=== PATIENT | male | born 1940 | race Caucasian/White ===

== ENCOUNTER 2018-05-06 11:25 | Outpatient (CLI) | payer MEDICARE, SELFPAY ==
--- NOTE | 2018-05-06 11:14 | DI.RAD_ITS ---
SYMPTOM/DIAGNOSIS: PAIN LEFT KNEE: Two views. No priors. There is periarticular spurring involving all three joint compartments. The joint spaces are otherwise well maintained. The bones are intact and normally mineralized. Extensive vascular calcifications are present. IMPRESSION: Mild to moderate degenerative changes of the left knee. RIGHT KNEE: Two views. No priors. There is mild narrowing of the lateral femoral tibial joint space. There is dillon-articular spurring involving all three joint compartments. The bones appear intact. Extensive vascular calcifications are present. IMPRESSION: Moderate degenerative changes of the right knee.
== END 2018-05-06 11:45 ==
PROVIDERS: Visit Provider Orthopaedic Surgery
DX: M25.561 Pain in right knee (principal); M25.562 Pain in left knee; M17.11 Unilateral primary osteoarthritis, right knee; M17.12 Unilateral primary osteoarthritis, left knee; G56.03 Carpal tunnel syndrome, bilateral upper limbs
CPT/HCPCS: 20610; 99202; 99204; 73560; J1040

== ENCOUNTER 2018-05-20 09:29 | Outpatient (CLI) | payer MEDICARE, SELFPAY ==
--- NOTE | 2018-05-20 09:28 | W.PREOPHP ---
Date of service: 05/20/18 Assessment and Plan (1) Carpal tunnel syndrome of right wrist: Current visit: Yes Status: Chronic Right ECTR. Details of surgery were discussed with patient as well as risks and pertinent anatomy. All questions were answered. (2) Carpal tunnel syndrome of left wrist: Current visit: Yes Status: Chronic He plans on having a left ECTR following his right ECTR. He will be evaluated in clinic a couple of weeks after surgery, and his left ECTR will be scheduled at that time. History of Present Illness Chief Complaint: B/L hand pain and numbness Narrative: Soy today for preop visit of a right ECTR. He has been dealing with bilateral hand pain and numbness for almost 20 years now. He states that it started with his left hand, but when he had them looked that with the EMG studies, he was instructed that his right hand is worse. Since his right hand has been getting more significant trouble especially at night the numbness and burning sensation keeping him from sleeping. He also has increased numbness and tingling with holding a phone up to his ear, and driving. He has tried braces on both of his wrists, but they have not helped with his symptoms. In the clinic Dr. Blevins did mention that he noticed some thenar atrophy as well in both of his hands. He is anxious to proceed with both carpal tunnel releases, the first morning on the right side on Saturday. Pertinent Surgical Information Patient denies history of hypertension, CVA, AK, angina, asthma, COPD, renal or liver disorders, hepatitis, bleeding disorders, diabetes, immune or thyroid disorders. No complications from anesthesia. Review of Systems Constitutional Denies fever(s) ENT Denies dizziness and Denies sore throat Cardiovascular Denies chest pain, Denies palpitations and Denies dyspnea Respiratory Denies cough and Denies dyspnea Gastrointestinal Denies abdominal pain, Denies melena, Denies hematochezia, Denies diarrhea, Denies nausea and Denies vomiting Genitourinary Denies hematuria and Denies dysuria Neurologic Denies dizziness Endocrine Denies palpitations [facility] Medical History Macular degeneration of both eyes (Chronic) Surgical History H/O arthroscopy of left knee (Chronic) History of colostomy (Chronic) History of colostomy reversal (Chronic) Meds Home Medications Medication Instructions Recorded Confirmed Type byfyrntlpsi-bndhmllvs-wrz C-Mn 2 cap PO DAILY cap 05/06/18 05/06/18 History capsule timolol maleate 0.5 % once daily 1 drp OP BID 05/06/18 05/06/18 History eye drops vitamins A,C,Z-srnn-gtvasn 7,160 1 tab PO BID tab 05/06/18 05/06/18 History unit-113 mg-100 unit tablet Allergies Allergy/AdvReac Type Severity Reaction Status Date / Time Sulfa (Sulfonamide Allergy Contraindic Verified 05/06/18 10:48 Antibiotics) ated acetaminophen [From Percocet] AdvReac Contraindic Verified 05/06/18 10:48 ated oxycodone [From Percocet] AdvReac Contraindic Verified 05/06/18 10:48 ated Exam HENMT Head: normocephalic and atraumatic General nose exam: no nasal discharge Throat: uvula midline and no uvular edema Other: soft palate rises symmetrically, no erythema Eyes Conjunctivae: conjunctivae normal Sclera: sclerae normal Pupils: PERRL Resp Effort & Inspection: normal respiratory effort Auscultation: clear to auscultation bilaterally and no wheezes Cardio Rate: regular rate Rhythm: regular rhythm Heart Sounds: S1 normal, S2 normal and no murmurs
--- NOTE | 2018-05-20 09:36 | HPE_ITS ---
Date of service: 05/20/18 Assessment and Plan (1) Carpal tunnel syndrome of right wrist: Current visit: Yes Status: Chronic Right ECTR. Details of surgery were discussed with patient as well as risks and pertinent anatomy. All questions were answered. (2) Carpal tunnel syndrome of left wrist: Current visit: Yes Status: Chronic He plans on having a left ECTR following his right ECTR. He will be evaluated in clinic a couple of weeks after surgery, and his left ECTR will be scheduled at that time. History of Present Illness Chief Complaint: B/L hand pain and numbness Narrative: Soy today for preop visit of a right ECTR. He has been dealing with bilateral hand pain and numbness for almost 20 years now. He states that it started with his left hand, but when he had them looked that with the EMG studies, he was instructed that his right hand is worse. Since his right hand has been getting more significant trouble especially at night the numbness and burning sensation keeping him from sleeping. He also has increased numbness and tingling with holding a phone up to his ear, and driving. He has tried braces on both of his wrists, but they have not helped with his symptoms. In the clinic Dr. Blevins did mention that he noticed some thenar atrophy as well in both of his hands. He is anxious to proceed with both carpal tunnel releases, the first morning on the right side on Saturday. Pertinent Surgical Information Patient denies history of hypertension, CVA, [place], angina, asthma, COPD, renal or liver disorders, hepatitis, bleeding disorders, diabetes, immune or thyroid disorders. No complications from anesthesia. Review of Systems Constitutional Denies fever(s) ENT Denies dizziness and Denies sore throat Cardiovascular Denies chest pain, Denies palpitations and Denies dyspnea Respiratory Denies cough and Denies dyspnea Gastrointestinal Denies abdominal pain, Denies melena, Denies hematochezia, Denies diarrhea, Denies nausea and Denies vomiting Genitourinary Denies hematuria and Denies dysuria Neurologic Denies dizziness Endocrine Denies palpitations [facility] Medical History Macular degeneration of both eyes (Chronic) Surgical History H/O arthroscopy of left knee (Chronic) History of colostomy (Chronic) History of colostomy reversal (Chronic) Meds Home Medications Medication Instructions Recorded Confirmed Type fbfufaxxiza-gwukhyjng-inc C-Mn 2 cap PO DAILY cap 05/06/18 05/06/18 History capsule timolol maleate 0.5 % once daily 1 drp OP BID 05/06/18 05/06/18 History eye drops vitamins A,C,O-ajhy-hbutan 7,160 1 tab PO BID tab 05/06/18 05/06/18 History unit-113 mg-100 unit tablet Allergies Allergy/AdvReac Type Severity Reaction Status Date / Time Sulfa (Sulfonamide Allergy Contraindic Verified 05/06/18 10:48 Antibiotics) ated acetaminophen [From Percocet] AdvReac Contraindic Verified 05/06/18 10:48 ated oxycodone [From Percocet] AdvReac Contraindic Verified 05/06/18 10:48 ated Exam HENMT Head: normocephalic and atraumatic General nose exam: no nasal discharge Throat: uvula midline and no uvular edema Other: soft palate rises symmetrically, no erythema Eyes Conjunctivae: conjunctivae normal Sclera: sclerae normal Pupils: PERRL Resp Effort & Inspection: normal respiratory effort Auscultation: clear to auscultation bilaterally and no wheezes Cardio Rate: regular rate Rhythm: regular rhythm Heart Sounds: S1 normal, S2 normal and no murmurs
== END 2018-05-20 09:49 ==
PROVIDERS: Visit Provider Orthopaedic Surgery
DX: G56.01 Carpal tunnel syndrome, right upper limb (principal); Z01.818 Encounter for other preprocedural examination
CPT/HCPCS: NC

== ENCOUNTER 2018-05-26 09:00 | Day surgery (SDC) | payer MEDICARE, SELFPAY ==
[2018-05-26 09:15] VITALS: BP 132/72; PULSE 47; RESP 18; TEMP 35.6; O2SAT 98
[2018-05-26] MEDS: Lactated Ringers 1,000 ML 80 ML IV (11:07)
--- NOTE | 2018-05-26 12:12 | W.PM.DSUDISC ---
Discharge Plan Disposition Patient Disposition: HOME Condition: Good Discharge Details Reason For Visit: R ECTR Attending Provider: Erik Blevins Home Meds and New Rx's Prescriptions: New ibuprofen 600 mg tablet 600 mg PO TID PRN (Reason: pain) Qty: 14 RF: 0 Continued timolol maleate 0.5 % drops, once daily 1 drp OP BID RF: 0 PreserVision AREDS 7,160-113-100 ozob-yg-slzx tablet 1 tab PO BID RF: 0 Glucosamine-Chondroitin Complx capsule 2 cap PO DAILY RF: 0 psyllium husk 3 gram/5.4 gram Powder 1 tbsp PO DAILY RF: 0 Discharge Instructions Additional Instructions: Elevate R hand above heart level as much as possible overnite tonite. Wiggle fingers R hand 10 times/hour when awake to prevent swelling. Remove splint and dressings after 48 hours. May then shower or bathe and get incision wet. Leave incision uncovered when iot is dry and sealed. Use R hand as much as your discomfort allows. Follow up in 's office in 10-14 days. Take ibuprofen as prescribed for pain. Stand Alone Forms: DSU Post op Instructions, Ivette Arzola (DSU) Referrals: Erik Blevins MD [ [facility] STAFF PHYSICIAN] - (f/u in 10-14 days) Equipment/Supplies: Splint Activity:: Activity as Tolerated Remove Dressings/Wound Care:: 48 hours Shower/Bathe:: 48 hours Diet:: As Tolerated Discharge Orders Discharge Orders: Discharge Order (Routine); Ordered 05/26/18 Ordered By: Erik Blevins DS: Diagnosis Discharge Diagnosis (1) Carpal tunnel syndrome of right wrist: Status: Chronic
[2018-05-26 12:37] VITALS: BP 140/77; PULSE 48; RESP 18; TEMP 35.4; O2SAT 94
--- NOTE | 2018-05-26 17:18 | ROE_ITS ---
DATE OF PROCEDURE: May 26, 2018 PREOPERATIVE DIAGNOSIS: Carpal tunnel syndrome, right. POSTOPERATIVE DIAGNOSIS: Same. PROCEDURE: Endoscopic carpal tunnel release, right. ANESTHESIA: IV Regional, Jonathan Kang CRNA SURGEON: Erik Blevins M.D. INDICATIONS: This is a 78-year-old white male with a 20-year history of bilateral carpal tunnel synd fatuma. His symptoms of pain and numbness in the median nerve distribution of both hands have intensif ied over the last year. The right is slightly more symptomatic than the left. Carpal tunnel release was recommended to alleviate his symptoms. The patient wished to undergo the endoscopic technique o f carpal tunnel release. Although he wishes to have both sides done, I have recommended to do one at a time, with the right side first. He has agreed with this approach. The risks and complications o f the procedure have been explained to the patient preoperatively. PROCEDURE: The patient was taken to the Operating Room on 05/26/18. He was placed supine on the opera ting table and an IV regional anesthetic was administered to the right upper extremity. Once good an esthesia was obtained, the right hand, wrist and forearm were prepped and draped free in the usual st erile fashion. A transverse incision was made in line with the proximal flexion crease of the right wrist, beginning at the flexor carpi radialis and extending to the flexor carpi ulnaris tendons. The palmaris longus tendon was retracted radially and a distally-based fascial flap was created to gain access to the ca rpal canal. A synovial reflector was used to release any adhesions to the undersurface of the volar carpal ligament. A series of obturators were then inserted in the carpal canal to make room for the endoscope. The Priya endoscope blade device was then inserted into the carpal canal. Care was taken to position the endoscope on the ulnar side of the carpal canal against the hook of the hamate. The endoscope was advanced until the distal edge of the volar carpal ligament was clearly visualized. At this point the trigger was depressed, elevating the blade, and the elevated blade was then brought f rom distal to proximal out through the incision, transecting the volar carpal ligament. The endoscop e was then replaced into the carpal canal and the median nerve was visualized falling into the gap ca used by the volar carpal ligament transection. Littler scissors were then placed into the wound and a subcutaneous fasciotomy was performed in a proximal direction from the incision for a distance of a bout two inches. The wound margins were infiltrated with 0.5% Marcaine with an epinephrine solution and a median nerve block was performed with 0.5% Marcaine with an epinephrine solution. The wound wa s irrigated with saline solution. The skin edges were approximated with two horizontal mattress sutu res of #4-0 Nylon suture material. The wound was dressed with Xeroform gauze, sterile gauze 4x4's, w rapped with a 4-inch Kerlix and then wrapped with a 3-inch Otis bandage. A commercial cock-up wrist s plint was placed over the dressings. The patient's IV regional anesthesia was reversed without compl ications. He was discharged to the recovery room in good condition. The patient was discharged home from the Day Surgery Unit when fully recovered from his IV regional a nesthesia. He was given instructions to elevate his right hand above heart level as much as possible overnight tonight. He was encouraged to wiggle the fingers of his right hand ten times an hour whi le awake to prevent swelling. He is to remove his dressings and splint after 48 hours and begin to m ove his right wrist. He may shower or bathe and get his incision wet after 48 hours. He can leave the incision uncovered when it's dry and sealed. He was given a prescription for pain of ibuprofen 6 00 mg p.o. t.i.d. p.r.n. He may use his right hand as much as discomfort allows. He will follow-up in my office in 10 to 14 days.
== END 2018-05-26 13:05 | disposition home or self-care (01) ==
PROVIDERS: Visit Provider Orthopaedic Surgery
PROC: 01N54ZZ Release Median Nerve, Percutaneous Endoscopic Approach (ICD-10-PCS; CPT 29848; principal; 2018-05-26 11:00)
DX: G56.01 Carpal tunnel syndrome, right upper limb (principal)
CPT/HCPCS: 29848; J0690; J1100; J1885; J2250; J2405; L3908

== ENCOUNTER → 2018-06-10 10:15 | Outpatient (BNVA) | payer MEDICARE, SELFPAY | PROVIDERS: Visit Provider Orthopaedic Surgery | DX: Z47.89 Encounter for other orthopedic aftercare (principal); G56.01 Carpal tunnel syndrome, right upper limb ==

== ENCOUNTER 2018-06-23 06:25 | Day surgery (SDC) | payer MEDICARE, SELFPAY ==
[2018-06-23 06:29] VITALS: BP 143/87; PULSE 47; RESP 16; TEMP 35.9; O2SAT 98
[2018-06-23] MEDS: Normal Saline Flush 10 ML SYR IV (06:58)
[2018-06-23] MEDS: Lactated Ringers 1,000 ML 80 ML IV (06:58)
[2018-06-23] MEDS: ceFAZolin 2 GM/50 ML BAG IVPB (07:32)
--- NOTE | 2018-06-23 08:18 | PDOC.DSDIS_ITS ---
Discharge Plan Disposition Patient Disposition: HOME Condition: Good Discharge Details Reason For Visit: L ECTR Attending Provider: Erik Blevins Primary Care Provider: None,None Home Meds and New Rx's Prescriptions: Continued timolol maleate 0.5 % drops, once daily 1 drp OP BID RF: 0 PreserVision AREDS 7,160-113-100 onus-lp-enms tablet 1 tab PO BID RF: 0 Glucosamine-Chondroitin Complx capsule 2 cap PO DAILY RF: 0 psyllium husk 3 gram/5.4 gram Powder 1 tbsp PO DAILY RF: 0 ibuprofen 600 mg tablet 600 mg PO TID PRN (Reason: pain) Qty: 14 RF: 0 Discharge Instructions Additional Instructions: Elevate L hand above heart level as much as possible overnite tonite. Wiggle fingers L hand 10times/hour when awake to prevent swelling. Remove splint AND dressings after 48 hours and begin to move L wrist. May shower or bathe and get incision wet after you remove the dressings. Leave incision uncovered when it is dry and sealed. Use L hand as much as your discomfort allows. Take ibuprofen 600-800 mg every 6 hours as needed for pain. Your fingers L hand may stay numb for up to 24 hours due to nerve block I put in. Follow up in 10-14 days with . Referrals: Erik Blevins MD [ [facility] STAFF PHYSICIAN] - (f/u in 10-14 days.) Equipment/Supplies: Splint Activity:: Activity as Tolerated Remove Dressings/Wound Care:: 48 hours Shower/Bathe:: 48 hours Diet:: As Tolerated Discharge Orders Discharge Orders: Discharge Order (Routine); Ordered 06/23/18 Ordered By: Erik Blevins DS: Diagnosis Discharge Diagnosis (1) Carpal tunnel syndrome of left wrist: Status: Chronic
[2018-06-23 08:49] VITALS: BP 142/86; PULSE 48; RESP 18; TEMP 35.4; O2SAT 98
--- NOTE | 2018-06-23 17:16 | ROE_ITS ---
DATE OF PROCEDURE: June 23, 2018 PREOPERATIVE DIAGNOSIS: Carpal tunnel syndrome, left. POSTOPERATIVE DIAGNOSIS: Same. PROCEDURE: Endoscopic carpal tunnel release, left. ANESTHESIA: IV Regional Anesthesia. SURGEON: Erik Blevins M.D. INDICATIONS: This is a 78-year-old white male with bilateral carpal tunnel syndrome of many years du ration. Approximately three weeks ago he underwent a successful right endoscopic carpal tunnel relea se. He was very pleased with the results of endoscopic carpal tunnel surgery on his right wrist and therefore he wished to proceed as quickly as possible with endoscopic carpal tunnel release on the le ft. The risks and complications of the procedure were explained to the patient in detail preoperativ jeremy. PROCEDURE: The patient was taken to the Operating Room on 06/23/18. He was placed supine on the opera ting table and an IV regional anesthetic was administered to the left upper extremity. Once good an esthesia was obtained, the left hand, wrist and forearm were prepped and draped free in the usual zak rile fashion. A transverse incision was made in line with proximal flexion crease of the wrist. The incision began over the flexor carpi radialis and extended to the flexor carpi ulnaris tendon. The patient had a p almaris longus tendon, which was retracted radially. The fascia was incised and a distally-based fas cial flap was created to gain access to the carpal canal. Room for the endoscope was made using a sy novial reflector followed by a series of obturators. The Priya endoscope blade device was then insert ed in the carpal canal until the distal edge of the volar carpal ligament was visualized. Care was t aken to position the endoscope on the ulnar side of the canal. The trigger was depressed, elevating the blade, and then the blade was withdrawn from distal to proximal out through the incision, transec ting the volar carpal ligament. The endoscope was inserted in the canal and I was able to directly v isualize the median nerve falling into the gap created by the transection of the volar carpal ligamen t. Fasciotomy was then performed subcutaneously starting at the incision and carried about two inche s proximal to it using Littler scissors. The wound was irrigated with saline solution. A median ner ve block was performed with 0.5% Marcaine with an epinephrine solution and the wound margins were inf iltrated with 0.5% Marcaine with an epinephrine solution. The subcutaneous veins were cauterized. T he skin edges were approximated with two interrupted horizontal mattress sutures of #4-0 Nylon suture material. The wound was dressed with Xeroform gauze, sterile gauze 4x4's, wrapped with a Kerlix ban dage, then wrapped with a 3-inch Otis bandage. He was placed in a commercial cockup wrist splint. Th e patient's IV regional anesthesia was reversed without complications. He was discharged to the [facility] very Room in good condition. The patient was discharged home from the Day Surgery Unit when fully recovered from his IV regional a nesthesia. He was given instructions to elevate his left hand above heart level as much as possible overnight tonight. He was encouraged to wiggle his fingers ten times an hour while awake to prevent swelling and stiffness. He is to keep his dressings and splint clean and dry for 48 hours. After 48 hours he is to remove his dressings and splint and start to move his left his wrist. He may move hi s left wrist as much as discomfort allows. After he removes his dressings he can shower or bathe and get his incision wet. He is to leave the incision uncovered when it is dry and sealed. He is instr ucted to take ibuprofen for mild pain. He will follow-up with me in 10 to 14 days.
== END 2018-06-23 09:19 | disposition home or self-care (01) ==
PROVIDERS: Visit Provider Orthopaedic Surgery
PROC: 01N54ZZ Release Median Nerve, Percutaneous Endoscopic Approach (ICD-10-PCS; CPT 29848; principal; 2018-06-23 07:30)
DX: G56.02 Carpal tunnel syndrome, left upper limb (principal)
CPT/HCPCS: 29848; J0690; J1885; J2250; L3908

== ENCOUNTER → 2018-07-03 09:22 | Outpatient (BNVA) | payer MEDICARE, SELFPAY | PROVIDERS: Visit Provider Orthopaedic Surgery | DX: Z47.89 Encounter for other orthopedic aftercare (principal); G56.02 Carpal tunnel syndrome, left upper limb ==

== ENCOUNTER 2019-03-13 09:41 | Emergency (ER) | payer MEDICARE, SELFPAY ==
[2019-03-13 09:45] VITALS: BP 133/78; PULSE 48; RESP 16; TEMP 36.2; O2SAT 98
[2019-03-13 09:48] VITALS: PULSE 51
--- NOTE | 2019-03-13 09:56 | W.ED.GENAD ---
Discharge Plan Discharge Details Chief Complaint: Orthopedic Primary Care Provider: None,None ED Provider: Oren Haynes Home Meds and New Rx's Prescriptions: No Action timolol maleate 0.5 % drops, once daily 1 drp OP BID RF: 0 PreserVision AREDS 7,160-113-100 rqpx-xc-sxgm tablet 1 tab PO BID RF: 0 Glucosamine-Chondroitin Complx capsule 2 cap PO DAILY RF: 0 psyllium husk 3 gram/5.4 gram Powder 1 tbsp PO DAILY RF: 0 ibuprofen 600 mg tablet 600 mg PO TID PRN (Reason: pain) Qty: 14 RF: 0 HPI 79-year-old female past medical history of depression and anxiety currently taking Zoloft and Ativan living at [facility] presents with complaint of feeling depressed anxious and not wanting to be here anymore for the last 3 or 4 months states it is been worse the last few weeks. Patient has no specific suicide plan denies suicide attempts in the past no access to firearms patient has been hospitalized for psychiatric illness at [facility] in the past. Patient denies any acute event at [facility] that is worsening her anxiety denies homicidal IV ideation. Patient contracts for safety while in emergency department is requesting psychiatric admission for further care she says I cannot do this alone anymore. Symptoms are chronic nothing makes them better or worse. General Date/Time Provider Initiated Documentation: 03/13/19 09:46. Related Data Home Medications Medication Instructions Recorded Confirmed sbaaoralnqj-yqtfvfibd-uhx C-Mn 2 cap PO DAILY cap 05/06/18 03/13/19 timolol maleate 0.5 % once daily 1 drp OP BID 05/06/18 03/13/19 eye drops vitamins A,C,C-grwk-dbmean 7,160 1 tab PO BID tab 05/06/18 03/13/19 unit-113 mg-100 unit tablet psyllium husk 1 tbsp PO DAILY 05/20/18 03/13/19 ibuprofen 600 mg PO TID PRN #14 tab 05/26/18 03/13/19 Previous Rx's Medication Instructions Recorded ibuprofen 600 mg PO TID PRN #14 tab 05/26/18 Allergies Allergy/AdvReac Type Severity Reaction Status Date / Time Sulfa (Sulfonamide Allergy Contraindic Verified 03/13/19 09:48 Antibiotics) ated acetaminophen [From Percocet] AdvReac Contraindic Verified 03/13/19 09:48 ated oxycodone [From Percocet] AdvReac Contraindic Verified 03/13/19 09:48 ated General Stated Complaint: Orthopedic TANNER: 4 PFSH Social History Smoking/Tobacco Use Status: Never Alcohol Intake: never Drug use: Never Substance use type: does not use Do you feel safe at home: Yes Do you feel safe in your relationship?: Yes Course Vital Signs Vital signs: Vital Signs Temperature 36.2 C L 03/13/19 09:45 Pulse 48 L 03/13/19 09:45 Respiratory Rate 16 03/13/19 09:45 Blood Pressure 133/78 03/13/19 09:45 Pulse Oximetry 98 03/13/19 09:45 Temperature 36.2 C L 03/13/19 09:45 Temperature Source Temporal Artery Scan 03/13/19 09:45 Pulse 51 L 03/13/19 09:48 Respiratory Rate 16 03/13/19 09:45 Respiratory Effort 03/13/19 09:45 Blood Pressure 133/78 03/13/19 09:45 Pulse Oximetry 98 03/13/19 09:45 Oxygen Delivery Method Room Air 03/13/19 09:45 Oxygen Flow Rate 0 03/13/19 09:45 Pain Level 3 03/13/19 09:48 Comment 03/13/19 09:48
--- NOTE | 2019-03-13 10:07 | ED.GENADUL_ITS ---
Discharge Plan Disposition Patient Disposition: HOME Discharge Details Chief Complaint: Orthopedic Clinical Impression: Cellulitis of second toe of left foot Primary Care Provider: None,None ED Provider: Oren Haynes Home Meds and New Rx's Prescriptions: New cephalexin [Keflex] 500 mg capsule 500 mg PO QID Qty: 39 RF: 0 Continued timolol maleate 0.5 % drops, once daily 1 drp OP BID RF: 0 PreserVision AREDS 7,160-113-100 [id number] tablet 1 tab PO BID RF: 0 Glucosamine-Chondroitin Complx capsule 2 cap PO DAILY RF: 0 psyllium husk 3 gram/5.4 gram Powder 1 tbsp PO DAILY RF: 0 ibuprofen 600 mg tablet 600 mg PO TID PRN (Reason: pain) Qty: 14 RF: 0 Discharge Instructions Instructions: Cellulitis (ED) Additional Instructions: Please take full course of antibiotic as prescribed. Please follow-up with podiatry. Call Saturday. Please contact [facility] to arrange follow-up. Return to the ER for any worsening or new concerning symptoms. Referrals: Babar Jose DPM [[facility] STAFF PHYSICIAN] - Ken Sue MD [ [facility] STAFF PHYSICIAN] - Discharge Data Discharge Date/Time-TO BE ENTERED AT DEPARTURE: 03/13/19 10:30 Medical Decision Making 79-year-old male with left second toe cellulitis and ulcer. Plan to initiate Keflex 500 mg 4 times daily x10 days. Plan to check tetanus status as patient is unsure. Will call [facility]. Patient is interested in establishing primary care at [facility]. Patient will require follow-up with podiatry. I will attempt to contact Dr. Jose is not currently in the office today. HPI General Mode of arrival: ambulatory . Date/Time Provider Initiated Documentation: 03/13/19 09:46 . Limitations to Documentation: no limitations . Information obtained by: patient . HPI Narrative: 79-year-old male presents with chief complaint of inflammation of left second toe. Patient notes inflammation started about 1 week ago. Patient notes he cut the tip of his toenail and some of the skin with a total from his garage about 6 days ago. Toe is now more painful and red. Symptoms moderate. No modifiers. He has had some discharge from the wound. No associated fever. No other rash. Related Data Home Medications Medication Instructions Recorded Confirmed [id number] C-Mn 2 cap PO DAILY cap 05/06/18 03/13/19 timolol maleate 0.5 % once daily 1 drp OP BID 05/06/18 03/13/19 eye drops vitamins A,C,U-vpzc-kltnob 7,160 1 tab PO BID tab 05/06/18 03/13/19 unit-113 mg-100 unit tablet psyllium husk 1 tbsp PO DAILY 05/20/18 03/13/19 ibuprofen 600 mg PO TID PRN #14 tab 05/26/18 03/13/19 cephalexin [Keflex] 500 mg PO QID #39 cap 03/13/19 Previous Rx's Medication Instructions Recorded ibuprofen 600 mg PO TID PRN #14 tab 05/26/18 cephalexin [Keflex] 500 mg PO QID #39 cap 03/13/19 Allergies Allergy/AdvReac Type Severity Reaction Status Date / Time Sulfa (Sulfonamide Allergy Contraindic Verified 03/13/19 09:48 Antibiotics) ated acetaminophen [From Percocet] AdvReac Contraindic Verified 03/13/19 09:48 ated oxycodone [From Percocet] AdvReac Contraindic Verified 03/13/19 09:48 ated General Stated Complaint: Orthopedic TANNER: 4 Review of Systems Constitutional Constitutional: Denies fever(s) Integumentary/Breasts Skin/Breast: Reports as per HPI [facility] Medical History Macular degeneration of both eyes (Chronic) Surgical History H/O arthroscopy of left knee (Chronic) History of carpal tunnel release (Acute) History of cholecystectomy (Chronic) History of colonoscopy (Chronic) History of colostomy (Chronic) History of colostomy reversal (Chronic) He also had his gallbladder removed during this surgery Social History Smoking/Tobacco Use Status: Never Alcohol Intake: never Drug use: Never Substance use type: does not use Do you feel safe at home: Yes Do you feel safe in your relationship?: Yes Exam Const General: cooperative and no acute distress HENMT Mouth: moist mucous membranes Cardio Rate: regular rate Rhythm: regular rhythm Pulses: dorsalis pedis pulses present on the left 2+ Skin Wounds: wounds noted (ulcer tip of left second toe, no discharge, erythema of toe) Extrem Left lower extremity: foot Details: tenderness (left second toe inflamed) and motor-sensory exam Details: light-touch normal Course Vital Signs Vital signs: Vital Signs Temperature 36.2 C L 03/13/19 09:45 Pulse 48 L 03/13/19 09:45 Respiratory Rate 16 03/13/19 09:45 Blood Pressure 133/78 03/13/19 09:45 Pulse Oximetry 98 03/13/19 09:45 Temperature 36.2 C L 03/13/19 09:45 Temperature Source Temporal Artery Scan 03/13/19 09:45 Pulse 51 L 03/13/19 09:48 Respiratory Rate 16 03/13/19 09:45 Respiratory Effort 03/13/19 09:45 Blood Pressure 133/78 03/13/19 09:45 Pulse Oximetry 98 03/13/19 09:45 Oxygen Delivery Method Room Air 03/13/19 09:45 Oxygen Flow Rate 0 03/13/19 09:45 Pain Level 3 03/13/19 09:48 Comment 03/13/19 09:48 Lab/Test Results Lab/Test Results: Laboratory Tests Range/Units 03/13/19 03/13/19 03/13/19 09:58 09:58 09:58 WBC Cancelled RBC Cancelled Hgb Cancelled Hct Cancelled MCV Cancelled MCH Cancelled MCHC Cancelled RDW Cancelled Plt Count Cancelled MPV Cancelled Immature Gran % Cancelled Neutrophils % Cancelled Band Neutrophils % Cancelled Lymphocytes % Cancelled Atypical Lymphs % Cancelled Monocytes % Cancelled Eosinophils % Cancelled Basophils % Cancelled Metamyelocytes % Cancelled Myelocytes % Cancelled Promyelocytes % Cancelled Absolute Neutrophils Cancelled Absolute Lymphocytes Cancelled Absolute Monocytes Cancelled Absolute Eosinophils Cancelled Absolute Basophils Cancelled Nucleated RBCs Cancelled Differential Comment Cancelled Other Cell Type Cancelled RBC Morphology Cancelled Polychromasia Cancelled Hypochromasia Cancelled Poikilocytosis Cancelled Basophilic Stippling Cancelled Anisocytosis Cancelled Microcytosis Cancelled Macrocytosis Cancelled Spherocytes Cancelled Target Cells Cancelled Tear Drop Cells Cancelled Ovalocytes Cancelled Stomatocytes Cancelled [place] Bodies Cancelled Rod Cells Cancelled Acanthocytes (Spur) Cancelled Schistocytes Cancelled Sodium Cancelled Potassium Cancelled Chloride Cancelled Carbon Dioxide Cancelled Anion Gap Cancelled BUN Cancelled Creatinine Cancelled Estimated GFR/1.73 m2 Cancelled Glucose Cancelled Calcium Cancelled Total Bilirubin Cancelled AST Cancelled ALT Cancelled Alkaline Phosphatase Cancelled Total Protein Cancelled Albumin Cancelled TSH Cancelled Salicylates Cancelled Acetaminophen Cancelled Ethyl Alcohol Cancelled
[2019-03-13] MEDS: Cephalexin 500 MG CAP PO (10:10)
[2019-03-13] MEDS: Bacitracin 1 PACKET TP (10:10)
== END 2019-03-13 10:30 | disposition home or self-care (01) ==
LOC: ER 10:16
PROVIDERS: Emergency Provider Student in an Organized Health Care Education/Training Program
DX: L03.032 Cellulitis of left toe (principal)
CPT/HCPCS: 80053; 99283; 80320; 80329; 84443; 85025

== ENCOUNTER 2019-12-09 11:35 | Outpatient (CLI) | payer MEDICARE, SELFPAY ==
--- NOTE | 2019-12-09 11:45 | DI.RAD_ITS ---
EXAM: XR KNEE RT 3V AP,LAT,JOSHUA CLINICAL HISTORY: R knee pain TECHNIQUE: COMPARISON: CR XR knee RT 2V AP,lat from 05/06/2018 FINDINGS: Three views were obtained. There is severe narrowing of the medial tibiofemoral cartilaginous joint space. There are prominent marginal osteophytes at the medial tibiofemoral joint and to a lesser deg ree at the patellofemoral joint. There is subchondral sclerosis of the adjacent bones at the medial tibiofemoral joint. IMPRESSION: Severe DJD predominantly involving medial tibiofemoral joint. RADIATION DOSE DELIVERED: Total DLP
== END 2019-12-09 11:55 ==
PROVIDERS: Visit Provider Orthopaedic Surgery
DX: M17.11 Unilateral primary osteoarthritis, right knee (principal); M25.561 Pain in right knee
CPT/HCPCS: 73562; 99213

== ENCOUNTER 2020-01-14 04:00 | Outpatient (CLI) | payer MEDICARE, SELFPAY ==
[2020-01-14 09:50] LABS: Abs Immature Grans 0.02 10^3/uL (0.0-0.06); Absolute Basophil Count 0.02 10^3/uL (0.0-0.2); Absolute Eosinophil Count 0.14 10^3/uL (0.0-0.7); Absolute Lymphocyte Count 1.31 10^3/uL (1.2-3.4); Absolute Monocyte Count 0.68 10^3/uL (0.1-0.8); Absolute Neutrophil Count 3.82 10^3/uL (1.2-6.7); Basophils % 0.3; Eosinophils % 2.3; HCT 41.7 % (40.0-50.0); Immature Grans % 0.3; Lymphocytes % 21.9; MCH 31.3 pg (27.0-33.0); MCHC 33.6 % (32.0-36.0); MCV 93.1 fL (80-95); MPV 9.1 fL (8.0-11.0); Monocytes % 11.4; Neutrophils % 63.8; Nucleated RBC 0 %; Platelet Count 238 10^3/uL (130-400); RBC 4.48 10^6/uL (4.36-5.78); RDW 12.6 % (11.8-14.1); RDW-SD 42.6 fL; WBC 5.99 10^3/uL (4.4-10.8)
[2020-01-16 09:53] LABS: COVID-19 RT-PCR Result NEGATIVE (Negative)
== END 2020-01-14 04:20 ==
PROVIDERS: PCP Nurse Practitioner Family; Visit Provider Orthopaedic Surgery
DX: Z11.59 Encounter for screening for other viral diseases (principal); M25.561 Pain in right knee; M17.11 Unilateral primary osteoarthritis, right knee; Z01.818 Encounter for other preprocedural examination; Z01.812 Encounter for preprocedural laboratory examination
CPT/HCPCS: 36415; U0003; 85025

== ENCOUNTER 2020-01-18 06:03 | Inpatient (IN) | payer MEDICARE, SELFPAY ==
[2020-01-18] VITALS (9 sets, daily range): BP systolic 81–143; BP diastolic 49–88; PULSE 48–62; RESP 15–19; TEMP 35.9–36.8; O2SAT 95–98
--- NOTE | 2020-01-18 | DI.RAD_ITS ---
EXAM: XR KNEE RT 2V AP,LAT CLINICAL HISTORY: check position of total knee components in RR TECHNIQUE: COMPARISON: CR XR KNEE RT 3V AP,LAT,JOSHUA from 12/09/2019 FINDINGS: Two views were obtained. There is a total knee joint replacement in position. The components appear well seated. No other significant bony abnormality seen. IMPRESSION: RADIATION DOSE DELIVERED: Total DLP
[2020-01-18] MEDS: Lactated Ringers 1,000 ML 80 ML IV ×2 (07:08→11:40)
[2020-01-18] MEDS: ceFAZolin 2 GM/50 ML BAG IVPB ×3 (07:43→20:34)
[2020-01-18] MEDS: Hydrogen Peroxide 3% 480 ML BTL (09:33)
[2020-01-18] MEDS: Normal Saline Flush 10 ML SYR IV ×2 (11:40→16:18)
[2020-01-18 12:07] LABS: Platelet Count 216 10^3/uL (130-400)
[2020-01-18] MEDS: Enoxaparin 40 MG/0.4 ML SYR SC (12:48)
[2020-01-18] MEDS: POTASSIUM CHLORIDE/0.9% NACL 1,000 ML 125 MEQ IV ×2 (12:48→20:33)
--- NOTE | 2020-01-18 13:07 | IN_ITS ---
Date of service: 01/19/20 Time of Service: 13:07 PT Notes Visit Reasons: R TOTAL KNEE Physical Therapy Inpatient Initial Evaluation Date: 01/18/2020 Referring Doctor: PT Orders: PT CONSULT: Status post Ortho surgery. Get OOB ambulating in his room this afternoon. Precautions: Fall. Standard. WBAT on right LE. Patient Profile/Admitting Diagnosis: Soy is a 79-year-old male with primary unilateral osteoarthritis of the right knee and status post right total knee arthroplasty on postoperative day 0. PMHX: Medical History (Updated 12/09/19 @ 11:42 by COLEMAN Lockwood) Macular degeneration of both eyes Surgical History H/O arthroscopy of left knee History of carpal tunnel release History of cholecystectomy History of colonoscopy History of colostomy History of colostomy reversal He also had his gallbladder removed during this surgery Social History/Home Situation: Lives with in a private home with 4 steps to enter and a rail on 1 side. States that alternatively he has a ramp to enter the house. He is independent with all aspects of ADLs prior to surgery. Equipment Owned/DME: None Subjective: Agreeable to PT consult. Denies headache, chest pain, and dizziness throughout ambulation activity. Reports minimal pain at 1/10 with weight bearing. Objective: General Observation: Knee immobilizer on right LE. Otis wraps on right LE. Cryo/Cuff on right LE. IV in the right UE. Mental Status: Alert and oriented x4 Pain: 1/10 right knee ROM: Right Upper Extremity: Shoulder Flexion WFL. Shoulder abduction WFL. Elbow flexion WFL. Wrist flexion WFL. Opening and closing of hand WFL. Left Upper Extremity: Shoulder Flexion WFL. Shoulder abduction WFL. Elbow flexion WFL. Wrist flexion WFL. Opening and closing of hand WFL. Right Lower Extremity: Hip flexion allows 10 degrees beyond 90 while seated at edge of bed. Hip abduction WFL. Knee flexion 30 degrees to 60 degrees. Knee extension. Ankle dorsiflexion WFL. Ankle plantarflexion WFL. Left Lower Extremity: Hip flexion WFL. Hip abduction WFL. Knee flexion WFL. Ankle dorsiflexion WFL. Ankle plantarflexion WFL. Strength: Right Upper Extremity: Shoulder flexors 4/5. Shoulder abductors 4/5. Elbow flexors 4/5. Elbow extensors 4/5. Public Health Director strong. Left Upper Extremity: Shoulder flexors 4/5. Shoulder abductors 4/5. Elbow flexors 4/5. Elbow extensors 4/5. Public Health Director strong. Right Lower Extremity: Hip flexors 3-/5. Hip abductors 4-/5. Knee flexors 3-/5. Knee extensors 3-/5. Ankle dorsiflexors 4/5. Ankle plantarflexors 4/5. Left Lower Extremity: Hip flexors 3-/5. Hip abductors 4-/5. Knee flexors 3-/5. Knee extensors 3-/5. Ankle dorsiflexors 4/5. Ankle plantarflexors 4/5. Sensation: Intact as to pain and pressure on bilateral lower extremities. Bed Mobility/Transfers: Supine to sit standby assist with HOB at 30 degrees Sit to supine contact-guard assist Sit to stand contact-guard assist Stand to sit contact-guard assist Bed to chair contact-guard assist Chair to bed contact-guard assist Gait: 80 feet with front wheeled walker with WBAT on the right LE with contact- guard assist. With decreased right knee extension at midstance. Decreased john. 04/03 complaint of pain in the right knee. Balance: Static Sitting: Normal Dynamic Sitting: Normal Static Standing: Fair Dynamic Standing: Fair Special Tests: Mobility Limitations Standardized Measure [facility]-P[facility] 6 clicks Basic Mobility Inpatient Short Form: Raw Score: 18 CMS Score: 47% deficit Informed Consent/Education: Patient instructed in purpose of PT consult and plan of care. Assessment: Haven demonstrates functional mobility decline requiring the use of a front wheeled walker for all mobility ADL performance, generalized weakness whole on the right LE major muscle groups, impaired balance, and increased risk for falls due to postoperative status. Soy is a 79-year-old male with primary unilateral osteoarthritis of the right knee and status post right total knee arthroplasty on postoperative day 0. Patient presents with clinical signs and symptoms consistent with current/admitting diagnoses that have resulted to mobility limitations, gait instability, generalized weakness, and impairment of motor control as demonstrated by the following impairment level findings: 1. Decreased strength to right LE major muscle groups 2. Impaired standing balance 3. Impaired activity tolerance 4. Limitation of joint range of motion in knee Impairments are contributing to the following functional limitations: 1. Dependent bed mobility skills 2. Increased dependence with transfers 3. Inability to safely ambulate without assistive device and physical assistance 4. Increase completion time for mobility ADL performance 5. Increased fall risk 6. Inability to negotiate steps alone safely Patient is assessed as a 79255 moderate complexity based on the following: History: 79-year-old male with impairment level findings, functional limitations, and past medical history as indicated above Examination: Demonstrable impairment in strength, balance, and mobility level with underlying impairments and functional limitations as documented above Presentation:Evolving Decision Makin moderate complexity Goals: Goals X1 week 1. Supine-Sit independent 2. Sit-Supine independent 3. Sit-Stand independent 4. Stand-Sit independent 5. Bed-Chair independent 6. Chair-Bed independent 7. Independent gait on level surface with use of least restrictive device for at least 300 feet without report of pain nor dyspnea 8. Independent stair negotiation while holding onto bilateral rails for at least 10 steps without report of pain nor dyspnea 9. Independent with home exercise program 10. Good static and dynamic standing balance/tolerance Plan of Care/Treatment Plan: 1-2x/day, 7 days/week x 1 week. Plan of care has been reviewed with the ASSEMBLY MANAGER providing the service under Physical Therapy direction. Initiate Physical Therapy intervention for strengthening, bed mobility, transfers, gait, stairs, balance training, use of assistive device. DISCHARGE RECOMMENDATIONS: Home with cleared by orthopedic surgeon. Outpatient PT services in order to regain premorbid independent level. Will benefit from the use of a front wheeled walker to maximize independence and reduce fall risk. TREATMENT CODE/TIME: 38302 x 30 minutes beginning at 13:07 PM. Thank you for the opportunity to participate in the care of this patient. Naima Prasad PT, DPT, CLT [facility] [place], [place]
[2020-01-18] MEDS: Docusate Sodium 100 MG CAP PO ×2 (13:48→20:33)
[2020-01-18] MEDS: HYDROcodone 5/Acetaminophen 325 TAB PO (13:52)
--- NOTE | 2020-01-18 16:10 | W.PM.OP ---
Date of service: 01/18/20 Time of Service: 08:07 Operative Note Operative Note DATE OF PROCEDURE: 01/18/20 PRE-OP DIAGNOSIS: Osteoarthritis right knee with mild valgus deformity. POST-OP DIAGNOSIS: same PROCEDURE: Right total knee arthroplasty. SURGEON: Erik Blevins [employer] OFFICER: Israel Soto ANESTHESIA: spinal PATHOLOGY: none sent COMPLICATIONS: None Patient's condition: stable Implants: Size 4 tibial component. Size 4 femoral component posterior cruciate substituting. 38 mm triprong patella. Size 4 rotating platform, posterior cruciate substituting, 10 mm thick polyethylene insert. Indications: This is a 79-year-old white male with progressive right knee pain and dysfunction over the last few years. He has had limited success of previous steroid injections. His pain has now progressed to the point where he has difficulty getting in and out of his truck, going up and down stairs even with any type of prolonged ambulation. He says his knee feels unstable to him and he has frequent episodes where he feels like his knee is going to collapse on him. This has been much worse the past 3 months. Serial x-rays over the years have shown progressive loss of lateral compartment joint space as well as tibiofemoral joint space consistent with osteoarthritis. Because of the increasing pain, coupled with decreased mobility, total knee replacement was recommended. Patient agreed with shared decision making. The risks and complications of procedure were explained patient in detail preop, as well as expected postoperative course. Procedure Description: Patient was taken the operating room on 01/18/2020 where he was placed supine operating table. As of some concern about the condition of the skin in his right groin, femoral nerve block was not performed. Instead an adductor canal block was performed for postoperative analgesia. Next a spinal anesthetic was administered. Once good and spinal anesthesia was obtained patient was positioned supine with a roll under his right buttock. Proximal tourniquet was applied to the right thigh. The right lower extremity was prepped from toes to tourniquet and draped free in the usual sterile fashion. The right lower extremity was exsanguinated by elevation for 2 minutes and then the tourniquet was inflated to 400 mmHg. Anterior midline incision was made beginning 4 inches proximal to the patella and extending distally to the tibial tubercle. Incision was carried down through the skin and subcu to the fascia. The fascia was incised. A medial parapatellar capsular incision was then made starting in the quad tendon midline and carried distally to the level of the tibial tubercle. A medial complete subperiosteal release was performed. Patella was everted and the knee was hyperflexed. Anterior and posterior cruciate ligaments were sacrificed. Capsule was freed from the proximal tibia and the posterior femur. Using intramedullary guides and jigs the distal femur was resected. Guides were used to cut out the box for the posterior cruciate substituting femoral component. Trial femoral component was inserted. Patient has excellent size and fit with a size 4 femoral trial. Proximal tibia was resected using extra medullary alignment guides and jigs. The resection was based on the more damage lateral plateau. I attempted to make may cut at 4 mm thickness based on the lateral tibial plateau. Using a trial components a reduction was performed. There was excellent stability throughout flexion with a size 10 mm thick trial insert. This insert also allow the knee to come to full extension. The trial components were removed. The keel for the the tibial component was then reamed and punched on proper rotation alignment. Size 4 tibia was the right size. The patella was resected using a patellar resection guide. Care was taken to leave at least 15 mm thickness of patella following resection. 38 mm triprong patella was felt to be the right size. The drill guide for the prongs of the triprong patella was then used to ream out the holes for the triplane patella in proper rotation alignment. The hole for the intramedullary guide and the femur was plugged with the bone resected from the distal femur. Proximal tibia was then prepared for cementing with pulse irrigation lavage of saline solution and drying with peroxide soaked strip sponges. 1 batch of gentamicin impregnated methylmethacrylate was vacuum mixed and was hand packed into the prepared distal femur. The more liquid cement from the mix was then used to fill in the depressions in the posterior side of the tibial component. The tibial component was then inserted and impacted in the place with the impactor mallet and further pressurized by using the trial components and extending the knee. Excess cement was then trimmed from the margins of the tibial component while cement was still soft using the plastic cement removal tool. When the first batch of methylmethacrylate had cured the trial components were removed. The distal femur and patella were then prepared for cementing with pulse irrigation lavage of saline solution and drying with peroxide soaked strip sponges. A second batch of gentamicin impregnated methylmethacrylate was vacuum mixed and more liquid cement was placed on the posterior aspects of the patella and femoral component. Former cement was then femoral component was impacted in the place with impactor mallet and further pressurized using the trial insert and extending the knee. Patella component was pressurized using patella clamp. Excess cement was trimmed from the margins of the femoral component and the patella component while cement was still soft using the plastic cement removal tool. When the second batch of methylmethacrylate had cured the trial insert was removed as was the patella clamp. Posterior recesses were checked for any residual bone or cement debris. The wound was irrigated final time with pulse irrigation positive saline solution. Using the trials was felt that the 10 mm the actual insert rotating platform size 410 mm thick was then inserted into the tibial component and reduced on the femoral condyles. Patella tracking was checked using the rule of no thumb. The patella tracked anatomically. The right knee was flexed over soft goods and closure was begun. Betadine and saline solution was instilled into the right knee and allowed to stay for a minute before suctioning. The wound margins from the skin down to the knee joint capsule were infiltrated 0.5% Marcaine with epinephrine solution for postoperative analgesia. The medial parapatellar capsular incision and quadriceps tendon incision was closed using interrupted [id number] suture of #1 Vicryl suture tear. Subtenons tissue was approximated with interrupted 2-0 Vicryl sutures. The skin edges approximated with a running subcuticular suture of 3-0 Monocryl supplemented with tissue glue. Incision was dressed with Mepilex dressing. Further dressings of and ABD pad and Otis bandages was applied. Tourniquet was released at this point there was no breakthrough bleeding to the dressings. A knee immobilizer splint was applied to maintain the knee in extension. Patient received 1 g of tranexamic acid prior to tourniquet inflation and received a second gram of tranexamic acid with tourniquet deflation. Patient tolerated procedure well he experienced no intraoperative complications. He was discharged to recovery room in good condition.
[2020-01-18] MEDS: Ketorolac 30 MG/ML VIAL IVP ×2 (16:17→21:58)
[2020-01-19 00:35] VITALS: BP 123/70; PULSE 58; RESP 18; TEMP 36.9; O2SAT 95
[2020-01-19] MEDS: ceFAZolin 2 GM/50 ML BAG IVPB (01:34)
[2020-01-19 03:26] VITALS: BP 124/67; PULSE 54; RESP 18; TEMP 36.8; O2SAT 95
[2020-01-19] MEDS: Ketorolac 30 MG/ML VIAL IVP ×3 (03:41→15:42)
[2020-01-19] MEDS: POTASSIUM CHLORIDE/0.9% NACL 1,000 ML 125 MEQ IV (05:28)
[2020-01-19 07:00] LABS: HGB 11.1 g/dL (13.5-17.5)
[2020-01-19] MEDS: Pantoprazole 40 MG TABCR PO (07:13)
[2020-01-19 07:24] VITALS: BP 137/81; PULSE 56; RESP 18; TEMP 36.7; O2SAT 94
[2020-01-19 08:20] VITALS: O2SAT 94
[2020-01-19] MEDS: Docusate Sodium 100 MG CAP PO ×2 (08:21→13:54)
[2020-01-19] MEDS: Multivitamin w/Minerals TAB 1 TAB PO (08:21)
--- NOTE | 2020-01-19 09:18 | PT.INTREAT ---
Date of service: 01/19/20 Time of Service: 09:18 PT Notes Visit Reasons: R TOTAL KNEE Inpatient Physical Therapy Treatment Note [facility] Date: 01/19/2020 PRECAUTIONS: Fall, WBAT R SUBJECTIVE: Soy states that he would like to discharge to home later today. He reports that he is feeling better and is agreeable to participating in PT. OBJECTIVE: PAIN: Patient c/o R knee pain with supine-sit transfer BED MOBILITY/TRANSFERS Supine-sit: I with HOB flat Sit-supine: I with HOB flat Sit-stand: S Stand-sit: S GAIT Assistive Device: FWW B Axillary Crutches in a.m.; FWW in p.m. Weight bearing: WBAT R Assist: CGA-S with FWW CGA-SBA with B Axillary Crutches in a.m.; SBA-S in p.m. Distance: 25' + 150' with FWW 50' with B Axillary Crutches; 175' in p.m. Deviation: Decreased knee flexion THEREX: Patient was instructed in a LE strengthening and stabilization program, in a supine position, as per flow sheet. He was able to complete SLR x10 without assist at this time. Ends with cryocuff to R knee. STAIRS: Up/down 6x4 and 4x6 using U rail/SPC and a step-to pattern with SBA in a.m.; up/down 3x4 and 2x6 using U rail/SPC and a step-to pattern with supervision ASSESSMENT: Patient tolerated session with minimal complaint of R knee pain with transfers. He was able to tolerate a progression in gait distance with FWW support and SBA-S. Patient would benefit from continued gait training and transfer training as well as global strengthening for improved mobility. PLAN: Continue with gait and transfer training as well as global strengthening for improved mobility. TREATMENT CODE/TIME: Session 1: 40 minutes; 61536 x2, 25360 Session 2: 35 minutes; 63126, [id number]
[2020-01-19] MEDS: HYDROcodone 5/Acetaminophen 325 TAB PO (09:46)
[2020-01-19 11:25] VITALS: BP 111/66; PULSE 56; RESP 17; TEMP 36.8; O2SAT 98
[2020-01-19] MEDS: Enoxaparin 40 MG/0.4 ML SYR SC (12:45)
--- NOTE | 2020-01-19 15:10 | CHAPLAIN ---
Soy was in bed when I stopped in. He said his is waiting for him to call her when he is ready to be discharged, because she doesn't want to sit around waiting, and this way the car will be warm when she picks him up. They live in [place]. I explained my role and offered support.
--- NOTE | 2020-01-19 15:13 | PDOC.CMIN ---
- If Service Date Differs Date of service: 01/19/20 Time of Service: 15:56 Care Management Initial Assess REASON FOR HOSPITALIZATION:: Right Total Knee PAST MEDICAL HISTORY/PAST SURGICAL HISTORY:: Macular degeneration of both eyes, arthroscopy of left knee, carpal tunnel release, cholecystectomy, colonoscopy, colostomy and reversal. PREVIOUS FUNCTIONAL STATUS/SOCIAL/FAMILY SUPPORTS:: Joaquin resides in [place] with his , [place]. He is independent at baseline in the community. CURRENT FUNCTIONAL STATUS:: Soy is working with PT, and utilizing a FWW. He is being closely monitored post surgically and his pain is being managed. ADVANCE DIRECTIVES:: None on file at [facility]. Has patient been provided with info about the portal/API?: Yes Did the patient sign up for the portal?: No CODE STATUS:: Full Code INSURANCE COVERAGE / FINANCIAL ISSUES:: Medicare CURRENT HOME/COMMUNITY SERVICES/EQUIPMENT:: Ramp PRIMARY CARE PHYSICIAN:: Carmella Byers POTENTIAL DISCHARGE NEEDS:: PT eval: recommending outpatient PT, FWW. PATIENT/FAMILY EDUCATION NEEDS:: Review discharge instructions, discuss Ask Me Three. ANTICIPATED BARRIERS TO DISCHARGE:: None identified. TRANSPORTATION:: Via private vehicle with family. PLAN:: Soy will return home when ready per MD. He will follow up with his PCP and plan of care as prescribed. CM provided FWW, PT recommending outpatient PT upon discharge. CM continues to follow.
--- NOTE | 2020-01-19 15:16 | DSE_ITS ---
Date of service: 01/19/20 Time of Service: 15:16 DS: Diagnosis Discharge Diagnosis (1) Primary osteoarthritis of right knee: Status: Acute Discharge Plan Disposition Patient Disposition: HOME Condition: Good Discharge Details Reason For Visit: R TOTAL KNEE Admit Date/Time: 01/18/20 06:03 Admit Provider: Erik Blevins Attending Provider: Erik Blevins Primary Care Provider: Carmella Byers Hospital Course Hospital Course: Patient was taken the operating room on the day of admission 01/18/2020, where he underwent a right total knee arthroplasty without complications. He was immobilized later in the day. Today he is eating and drinking well. He has taken only one pain pill today. He is able to do an active straight leg raise without the knee immobilizer. He is independent with transfers and ambulation. He is flexing his knee to 90 degrees. Hemoglobin this morning was 11.1 g. I felt he had completed all his acute care goals and was ready for discharge. The patient concurred. Home Meds and New Rx's Prescriptions: New ibuprofen 800 mg tablet 800 mg PO TID Qty: 30 RF: 1 hydrocodone-acetaminophen 5-325 mg tablet 1 tab PO Q6H PRN (Reason: pain) Qty: 14 RF: 0 Continued timolol maleate 0.5 % drops, once daily 1 drp OP BID RF: 0 PreserVision AREDS 7,160-113-100 mqzv-uv-ielz tablet 1 tab PO BID RF: 0 Glucosamine-Chondroitin Complx capsule 2 cap PO DAILY RF: 0 psyllium husk 3 gram/5.4 gram Powder 1 tbsp PO DAILY RF: 0 ibuprofen 600 mg tablet 600 mg PO TID PRN (Reason: pain) Qty: 14 RF: 0 Discharge Instructions Additional Instructions: Use walker to ambulate. Walk every day as much as you discomfort allows. Elevate right leg when sitting. When in bed place pillow behind ankle to elevate right leg. Do not put the pillow behind the right knee. Use the Cryo/Cuff to the right knee 4 times a day for an hour each time to help decrease swelling. May shower and get dressings wet on . Do not attempt to remove the dressings. Just let them come off by themselves. Outpatient physical therapy at [facility] getting on or Saturday for right total knee rehab. Follow-up with Dr. Blevins in 2 weeks. Take 1 baby aspirin(81mg) twice a day for 30 days to prevent blood clots in your legs. Take ibuprofen 800 mg 3 times a day for the next 10 days to decrease pain and inflammation. Take hydrocodone as prescribed for breakthrough pain, if needed. Referrals: Erik Blevins MD [ [facility] STAFF PHYSICIAN] - (f/u in 2 weeks) Activity:: Activity as Tolerated Equipment/Supplies:: Walker Diet:: As Tolerated Discharge Orders Discharge Orders: Discharge Order (Routine); Ordered 01/19/20 Ordered By: Erik Blevins DS: Summary Status at Discharge Functional status at discharge: uses cane/walker Overall status at discharge: patient is not back to baseline Mental Status: mental status grossly normal Speech and Movement: speech and movement normal Mood: congruent mood Affect: normal affect Exam Psych Mental Status: mental status grossly normal Speech and Movement: speech and movement normal Mood: congruent mood Affect: normal affect DS: Data Vitals/I&O Vitals and I&O: Vital Signs Temperature 36.8 C 01/19/20 11:25 Temperature Source Tympanic 01/19/20 11:25 Pulse 56 L 01/19/20 11:25 Pulse Rhythm Regular 01/19/20 08:20 Respiratory Rate 17 01/19/20 11:25 Respiratory Effort Non-Labored 01/19/20 08:20 Respiratory Depth Normal 01/19/20 08:20 Respiratory Pattern Normal 01/19/20 08:20 Blood Pressure 111/66 01/19/20 11:25 Pulse Oximetry 98 01/19/20 11:25 Oxygen Delivery Method Room Air 01/19/20 11:25 Oxygen Flow Rate 0 01/19/20 11:25 Pain Level 2 01/19/20 11:25 Intake & Output 01/18/20 01/19/20 01/19/20 23:59 11:59 23:59 Intake Total 1640.75 / 2554.75 2042.917 / 2282.917 240 / 2282.917 Output Total 1200 / 1200 2570 / 2970 400 / 2970 Balance 440.75 / 1354.75 -527.083 / -687.083 -160 / -687.083 Intake: IV 1160.75 / 2074.75 1372.917 / 1372.917 Oral 480 / 480 670 / 910 240 / 910 Output: Urine 1200 / 1200 2570 / 2970 400 / 2970 Other: Urine Color Yellow Yellow Yellow Urine Appearance Clear Clear Clear Urine Odor Normal Normal Strong Voiding Methods Toilet Urinal Urinal Data Completed and Pending Labs on day of discharge: Labs from last 24 hours 01/19/20 06:02 Hgb 11.1 L PFSH Medical History Macular degeneration of both eyes Surgical History H/O arthroscopy of left knee History of carpal tunnel release History of cholecystectomy History of colonoscopy History of colostomy History of colostomy reversal He also had his gallbladder removed during this surgery Social History Smoking/Tobacco Use Status: Never Smoking risk assessment performed?: Yes Alcohol Intake: never Drug use: Never Substance use type: does not use Current gender identity: male Do you feel safe at home: Yes Do you feel safe in your relationship?: Yes
[2020-01-19 15:28] VITALS: BP 103/63; PULSE 66; RESP 22; TEMP 36.9; O2SAT 94
[2020-01-19] MEDS: Normal Saline Flush 10 ML SYR (15:41)
== END 2020-01-19 16:45 | disposition home or self-care (01) | DRG 470 ==
LOC: PDS 06:04 → MS 10:57
PROVIDERS: Admitting Provider Orthopaedic Surgery; PCP Nurse Practitioner Family; Visit Provider Orthopaedic Surgery
PROC: 0SRC0J9 Replacement of Right Knee Joint with Synthetic Substitute, Cemented, Open Approach (ICD-10-PCS; CPT 27447; principal; 2020-01-18 07:30)
DX: M17.11 Unilateral primary osteoarthritis, right knee (principal); J45.20 Mild intermittent asthma, uncomplicated; H40.9 Unspecified glaucoma; H35.30 Unspecified macular degeneration; K57.90 Diverticulosis of intestine, part unspecified, without perforation or abscess without bleeding
CPT/HCPCS: 27447; 36415; 76942; 97110; 97162; 97530; J1650; NC; 73560; 85018; 85049; E0114; J0690; J1100; J1885; J2001; J2405; L1830

== ENCOUNTER 2020-01-23 06:19 | Emergency (ER) | payer MEDICARE, SELFPAY ==
[2020-01-23 06:24] VITALS: BP 148/85; PULSE 78; RESP 20; TEMP 36.7; O2SAT 98
--- NOTE | 2020-01-23 06:30 | DI.US_ITS ---
EXAM: US LOWER EXTREMITY VENOUS RT CLINICAL HISTORY: medial thigh pain, recent surgery, r/o dvt TECHNIQUE: Right lower extremity venous ultrasound performed using grayscale, color-flow, and spectr al Doppler analysis. COMPARISON: No exams were available for comparison FINDINGS: The right common femoral, femoral and popliteal veins demonstrate normal compressibility, augmentatio n, and color Doppler. The posterior tibial veins are patent. The saphenofemoral junction is unremark able. There is a 5 x 3 x 1.2 cm complex fluid collection in the popliteal fossa. This may represent a Gibbons cyst. The soft tissues are unremarkable. IMPRESSION: No DVT. DATA REPOSITORY:
--- NOTE | 2020-01-23 07:14 | ED.GENADUL_ITS ---
Discharge Plan Disposition Patient Disposition: HOME Condition: Stable Discharge Details Clinical Impression: Pain in right knee, Bruising, Gibbons cyst Primary Care Provider: Carmella Byers ED Provider: Sydnie Sheppard Home Meds and New Rx's Prescriptions: Continued timolol maleate 0.5 % drops, once daily 1 drp OP BID RF: 0 PreserVision AREDS 7,160-113-100 [id number]-oh-kwcp tablet 1 tab PO BID RF: 0 Glucosamine-Chondroitin Complx capsule 2 cap PO DAILY RF: 0 psyllium husk 3 gram/5.4 gram Powder 1 tbsp PO DAILY RF: 0 ibuprofen 600 mg tablet 600 mg PO TID PRN (Reason: pain) Qty: 14 RF: 0 ibuprofen 800 mg tablet 800 mg PO TID Qty: 30 RF: 1 hydrocodone-acetaminophen 5-325 mg tablet 1 tab PO Q6H PRN (Reason: pain) Qty: 14 RF: 0 Discharge Instructions Instructions: Knee Pain (ED) Additional Instructions: Please continue with postoperative instructions. Please discuss increased swelling and discomfort with physical therapy as well. There is no evidence to suggest a blood clot in the leg ultrasound today. Please continue to use Otis wrap to help with the swelling. If you develop fever/chills, increased pain, numbness/tingling or other new/worsening symptom please seek care urgently once again. Referrals: Carmella Byers [Primary Care Provider] - Discharge Data Discharge Date/Time-TO BE ENTERED AT DEPARTURE: 01/23/20 11:55 Medical Decision Making <Harinder Platt DO - Last Filed: 01/23/20 20:19> 79-year-old male with a past medical history of arthritis and a right total knee arthroplasty on 01/18/[address] Blevins presents today for right knee pain. Patient had the surgery 5 days ago, he had physical therapy 3 days ago, at that time he noted no significant bruising, yesterday he did a notable amount of activity both with his crutches and without it. He did a significant amount of free walking around his yard and outside and inside. This morning he woke up and he noticed that his right knee was notably more stiff and painful to move, when he took off his Otis wrap he noticed that there was bruising going up the medial aspect of the thigh. Pain is present with weightbearing more than before. He denies any falls or trauma. Aside from aspirin he does not take any blood thinners. He has no history of clots. He denies fever or chills. No other complaints at this time. Exam demonstrates notable bruising and mild tenderness around the right knee, slightly examination supervisor comparison to the left but it does not appear overly cellulitic at all. There is bruising traveling up the medial thigh with tenderness and ropiness in this area as well. I suspect the patient likely overdid it yesterday from all his ambulation this caused the bruising. Pain of her with a mild medial thigh pain in conjunction with the bruising and pain I also do feel that DVT is on the differential and does need to be ruled out. I did briefly contact Dr. Blevins discussed this with him as well, he agrees with the current plan. We will put in for right-sided ultrasound, the case will be signed out to my colleague Dr. Mcmanus for disposition after imaging and orthopedic discussion. Of note I did contact the patient's [place] and discussed the plan with her as well. <COLEMAN Salazar - Last Filed: 01/24/20 07:37> Care transition myself and Dr. Platt with imaging pending. Please see his initial note regarding patient's presentation, exam and history. In brief, patient is a 79-year-old gentleman who came in with concern for swelling and ecchymosis to the right lower extremity. He is 6 days status post right knee TKA. Has been increasing his activity. There was concern for potential DVT and ultrasound is pending FINDINGS: Right deep veins: Unremarkable. The common femoral, femoral, proximal profunda femoral and popliteal veins are patent without thrombus. Normal Doppler waveforms. Normal compressibility and/or augmentation response. Right superficial veins: Unremarkable. Saphenofemoral junction is patent without thrombus. Soft tissues: There is a 5 x 3 x 1.2 x 3.5 cm complex fluid with septations in the popliteal fossa which could reflect popliteal cyst/Gibbons's cyst. IMPRESSION: No evidence of deep vein thrombosis. Discussed these findings with the patient. Encouraged that he continue with postoperative instructions. New Otis wrap will be applied. Encourage elevation. Advised he continue to work with physical therapy. Return precautions were discussed. I advised that he discuss the Gibbons's cyst further with Dr. Blevins. At sound like this has been an intermittent issue for the patient for several years. Attempts are made to reach Dr. Blevins, advised the patient that if he calls back after his departure I will let him know about the findings on the imaging. All his questions and concerns were addressed and he is agreement this plan HPI <Harinder Gama Lc, DO - Last Filed: 01/23/20 20:19> General Date/Time Provider Initiated Documentation: 01/23/20 06:21 . HPI Narrative: 79-year-old male with a past medical history of arthritis and a right total knee arthroplasty on 01/18/[address] Blevins presents today for right knee pain. Patient had the surgery 5 days ago, he had physical therapy 3 days ago, at that time he noted no significant bruising, yesterday he did a notable amount of activity both with his crutches and without it. He did a significant amount of free walking around his yard and outside and inside. This morning he woke up and he noticed that his right knee was notably more stiff and painful to move, when he took off his Otis wrap he noticed that there was bruising going up the medial aspect of the thigh. Pain is present with weightbearing more than before. He denies any falls or trauma. Aside from aspirin he does not take any blood thinners. He has no history of clots. He denies fever or chills. No other complaints at this time. Related Data Home Medications Medication Instructions Recorded Confirmed [id number]-mipqnkhwe-neg C-Mn 2 cap PO DAILY cap 05/06/18 01/18/20 capsule timolol maleate 0.5 % once daily 1 drp OP BID 05/06/18 01/18/20 eye drops vitamins A,C,K-ynyc-gghvga 7,160 1 tab PO BID tab 05/06/18 01/18/20 unit-113 mg-100 unit tablet psyllium husk 1 tbsp PO DAILY 05/20/18 01/18/20 ibuprofen 600 mg PO TID PRN #14 tab 05/26/18 01/18/20 hydrocodone-acetaminophen 1 tab PO Q6H PRN #14 tab 01/19/20 ibuprofen 800 mg PO TID #30 tab 01/19/20 Previous Rx's Medication Instructions Recorded ibuprofen 600 mg PO TID PRN #14 tab 05/26/18 hydrocodone-acetaminophen 1 tab PO Q6H PRN #14 tab 01/19/20 ibuprofen 800 mg PO TID #30 tab 01/19/20 Allergies Allergy/AdvReac Type Severity Reaction Status Date / Time morphine Allergy Severe Critical Verified 01/23/20 06:48 per H&P Sulfa (Sulfonamide Allergy Contraindic Verified 01/23/20 06:48 Antibiotics) ated oxycodone [From Percocet] AdvReac Contraindic Verified 01/23/20 06:48 ated General Stated Complaint: Orthopedic TANNER: 3 Review of Systems <Harinder Platt DO - Last Filed: 01/23/20 20:19> All systems reviewed & are unremarkable except as noted in HPI and below PFSH <Harinder Platt DO - Last Filed: 01/23/20 20:19> Medical History (Updated 01/23/20 @ 11:27 by COLEMAN Salazar) Macular degeneration of both eyes Surgical History H/O arthroscopy of left knee History of carpal tunnel release History of cholecystectomy History of colonoscopy History of colostomy History of colostomy reversal He also had his gallbladder removed during this surgery Social History Smoking/Tobacco Use Status: Never Smoking risk assessment performed?: Yes Alcohol Intake: never Drug use: Never Substance use type: does not use Current gender identity: male Do you feel safe at home: Yes Do you feel safe in your relationship?: Yes Exam <Harinder Platt DO - Last Filed: 01/23/20 20:19> Narrative Exam Narrative: 1.Const: Well-nourished, Well-developed, appearing stated age 2.Eyes: PERRL, no conjunctival injection, and symmetrical lids. 3.ENT: Atraumatic external nose and ears. Moist MM. Neck: Symmetric, trachea midline, No thyromegaly. 4.CVS: +S1/S2, No murmurs or gallops. Peripheral pulses 2+ and equal in all extremities. Brisk capillary refill in all extremities. 5.RESP: Unlabored respiratory effort. Clear to auscultation bilaterally. No w heezes rales or rhonchi 6.GI: Soft, Nontender/Nondistended, No hepatosplenomegaly. No guarding or rebound. 7.MSK: Right knee demonstrates notable bruising around the knee, slight warmth on the right compared to the left, mild bruising traveling up the medial aspect of the thigh, mild tenderness on palpation of the medial thigh, and around the knee. Pain with movement of the knee in comparison to the left. No significant calf tenderness or bruising around the calf. Dorsalis pedis and posterior tibial pulse +2 bilaterally, good capillary refill for all toes. Incision site appears to be clean dry and intact with no drainage. 8.Skin: Warm, Dry. Please see musculoskeletal 9.Neuro: legal service specialist II-XII grossly intact. Sensation grossly intact, no focal neurologic deficits. 10.Psych: (AAO) x3. Appropriate mood and affect Course <Harinder Platt DO - Last Filed: 01/23/20 20:19> Vital Signs Vital signs: Vital Signs Temperature 36.7 C 01/23/20 06:24 Pulse 78 01/23/20 06:24 Respiratory Rate 20 01/23/20 06:24 Blood Pressure 148/85 H 01/23/20 06:24 Pulse Oximetry 98 01/23/20 06:24 Temperature 36.7 C 01/23/20 06:24 Temperature Source Tympanic 01/23/20 06:24 Pulse 78 01/23/20 06:24 Respiratory Rate 20 01/23/20 06:24 Respiratory Effort Non-Labored 01/23/20 06:32 Blood Pressure 148/85 H 01/23/20 06:24 Pulse Oximetry 98 01/23/20 06:24 Oxygen Delivery Method Room Air 01/23/20 06:24 Oxygen Flow Rate 0 01/23/20 06:24 Pain Level 2 01/23/20 06:32
[2020-01-23 09:53] VITALS: BP 128/66; PULSE 64; RESP 18; TEMP 36.6; O2SAT 98
--- NOTE | 2020-01-23 10:46 | NUR.NOTE ---
Nursing Note: in Ultra sound.
--- NOTE | 2020-01-23 11:19 | DI.VRAD_ITS ---
PROCEDURE INFORMATION: Exam: US Duplex Right Lower Extremity Veins, Limited Exam date and time: 01/23/2020 11:04 AM Age: 79 years old Clinical indication: Other: Post op medial thigh pain; Prior surgery; Surgery date: 3-7 days post-operative; Surgery type: Right knee revision TECHNIQUE: Imaging protocol: Real-time Duplex ultrasound of the Right Lower Extremity with 2-D dodson scale, color Doppler flow and spectral waveform analysis with image documentation. Limited exam was focused on the right lower extremity veins. COMPARISON: No relevant prior studies available. FINDINGS: Right deep veins: Unremarkable. The common femoral, femoral, proximal profunda femoral and popliteal veins are patent without thrombus. Normal Doppler waveforms. Normal compressibility and/or augmentation response. Right superficial veins: Unremarkable. Saphenofemoral junction is patent without thrombus. Soft tissues: There is a 5 x 3 x 1.2 x 3.5 cm complex fluid with septations in the popliteal fossa which could reflect popliteal cyst/Gibbons's cyst. IMPRESSION: No evidence of deep vein thrombosis. Dictated and Authenticated by: Lenin Duarte MD. Ordering:GRANT Pizano MD
--- NOTE | 2020-01-25 08:32 | INDS_ITS ---
Date of service: 01/25/20 Time of Service: 08:32 PT Notes Physical Therapy Inpatient Discharge Summary Date: 01/25/2020 Dates of service: 04/19/2019 through 01/19/2020 This is a clinical summary of care provided on the duration of dates listed above. No charge was made in the completion of this documentation. Referring Doctor: PT Orders: PT CONSULT: Status post Ortho surgery. Get OOB ambulating in his room this afternoon. Precautions: Fall. Standard. WBAT on right LE. Patient Profile/Admitting Diagnosis: Soy is a 79-year-old male with primary unilateral osteoarthritis of the right knee and status post right total knee arthroplasty on postoperative day 0. PMHX: Medical History (Updated 12/09/19 @ 11:42 by COLEMAN Lockwood) Macular degeneration of both eyes Surgical History H/O arthroscopy of left knee History of carpal tunnel release History of cholecystectomy History of colonoscopy History of colostomy History of colostomy reversal He also had his gallbladder removed during this surgery Social History/Home Situation: Lives with in a private home with 4 steps to enter and a rail on 1 side. States that alternatively he has a ramp to enter the house. He is independent with all aspects of ADLs prior to surgery. Equipment Owned/DME: None Subjective: NT. See most recent FINANCIAL MANAGEMENT ANALYST notes. Objective: General Observation: NT. See most recent FINANCIAL MANAGEMENT ANALYST notes. Mental Status: NT. See most recent FINANCIAL MANAGEMENT ANALYST notes. Pain: NT. See most recent FINANCIAL MANAGEMENT ANALYST notes. ROM: Right Upper Extremity: Shoulder Flexion WFL. Shoulder abduction WFL. Elbow flexion WFL. Wrist flexion WFL. Opening and closing of hand WFL. Left Upper Extremity: Shoulder Flexion WFL. Shoulder abduction WFL. Elbow flexion WFL. Wrist flexion WFL. Opening and closing of hand WFL. Right Lower Extremity: Hip flexion allows 10 degrees beyond 90 while seated at edge of bed. Hip abduction WFL. Knee flexion 30 degrees to 60 degrees. Knee extension. Ankle dorsiflexion WFL. Ankle plantarflexion WFL. Left Lower Extremity: Hip flexion WFL. Hip abduction WFL. Knee flexion WFL. Ankle dorsiflexion WFL. Ankle plantarflexion WFL. Strength: Right Upper Extremity: Shoulder flexors 4/5. Shoulder abductors 4/5. Elbow flexors 4/5. Elbow extensors 4/5. Assignment Clerk strong. Left Upper Extremity: Shoulder flexors 4/5. Shoulder abductors 4/5. Elbow flexors 4/5. Elbow extensors 4/5. Assignment Clerk strong. Right Lower Extremity: Hip flexors 3-/5. Hip abductors 4-/5. Knee flexors 3-/5. Knee extensors 3-/5. Ankle dorsiflexors 4/5. Ankle plantarflexors 4/5. Left Lower Extremity: Hip flexors 3-/5. Hip abductors 4-/5. Knee flexors 3-/5. Knee extensors 3-/5. Ankle dorsiflexors 4/5. Ankle plantarflexors 4/5. Sensation: Intact as to pain and pressure on bilateral lower extremities. Bed Mobility/Transfers: Supine to sit independent Sit to supine independent Sit to stand supervision Stand to sit supervision Bed to chair supervision Chair to bed supervision Gait: 175 feet using front wheel walker with weightbearing as tolerated on on the right LE requiring contact-guard assist up-and-down six 4 inch steps and four 6 inch steps while holding onto 1 rail and a single-point cane with standby assist and step to gait pattern. Balance: Static Sitting: Normal Dynamic Sitting: Normal Static Standing: Fair Dynamic Standing: Fair Assessment: [place] continues to demonstrate functional mobility decline requiring the use of a front wheeled walker for all mobility ADL performance, generalized weakness whole on the right LE major muscle groups, impaired balance, and increased risk for falls due to postoperative status. Soy is a 79-year-old male with primary unilateral osteoarthritis of the right knee and status post right total knee arthroplasty on postoperative day 1 day of discharge.. Patient continues to present with clinical signs and symptoms consistent with current/admitting diagnoses that have resulted to mobility limitations, gait instability, generalized weakness, and impairment of motor control as demonstra nereyda by the following impairment level findings: 1. Decreased strength to right LE major muscle groups 2. Impaired standing balance 3. Impaired activity tolerance 4. Limitation of joint range of motion in knee Impairments are continuing to contribute to the following functional limitations: 1. Increased dependence with transfers 2. Inability to safely ambulate without assistive device and physical assistance 3. Increase completion time for mobility ADL performance 4. Increased fall risk 5. Inability to negotiate steps alone safely Goals: Goals X1 week 1. Supine-Sit independent MET 2. Sit-Supine independent MET 3. Sit-Stand independent NOT MET 4. Stand-Sit independent NOT MET 5. Bed-Chair independent NOT MET 6. Chair-Bed independent NOT MET 7. Independent gait on level surface with use of least restrictive device for at least 300 feet without report of pain nor dyspnea NOT MET 8. Independent stair negotiation while holding onto bilateral rails for at least 10 steps without report of pain nor dyspnea NOT MET 9. Independent with home exercise program NOT MET 10. Good static and dynamic standing balance/tolerance NOT MET DISCHARGE RECOMMENDATIONS: Home with cleared by orthopedic surgeon. Outpatient PT services in order to regain premorbid independent level. Will benefit from the use of a front wheeled walker to maximize independence and reduce fall risk. TREATMENT CODE/TIME: NC. Thank you for the opportunity to participate in the care of this patient. Naima Prasad PT, DPT, CLT [facility] [place], [place]
== END 2020-01-23 11:55 | disposition home or self-care (01) ==
PROVIDERS: Emergency Provider Physician Assistant; PCP Nurse Practitioner Family
DX: M71.21 Synovial cyst of popliteal space [Baker], right knee (principal); S80.01XA Contusion of right knee, initial encounter; X58.XXXA Exposure to other specified factors, initial encounter; Z47.1 Aftercare following joint replacement surgery; Z96.651 Presence of right artificial knee joint
CPT/HCPCS: 99284; 93971; 99283

== ENCOUNTER → 2020-03-01 10:19 | Outpatient (BNVA) | payer MEDICARE, SELFPAY | PROVIDERS: PCP Nurse Practitioner Family; Referring Provider Nurse Practitioner Family; Visit Provider Orthopaedic Surgery | DX: Z47.1 Aftercare following joint replacement surgery (principal); Z96.651 Presence of right artificial knee joint ==

== ENCOUNTER 2020-04-19 03:12 | Outpatient (CLI) | payer MEDICARE, SELFPAY ==
[2020-04-20 12:32] LABS: COVID-19 RT-PCR UVMMC Result Negative (Negative)
== END 2020-04-19 03:32 ==
PROVIDERS: PCP Nurse Practitioner Family; Visit Provider Podiatrist
DX: Z11.52 Encounter for screening for COVID-19 (principal); Z01.818 Encounter for other preprocedural examination
CPT/HCPCS: U0003

== ENCOUNTER 2020-04-22 07:25 | Day surgery (SDC) | payer MEDICARE, SELFPAY ==
[2020-04-22 07:41] VITALS: BP 129/79; PULSE 50; RESP 12; TEMP 35.6; O2SAT 95
[2020-04-22] MEDS: Lactated Ringers 1,000 ML 80 ML IV (08:17)
--- NOTE | 2020-04-22 08:54 | HPE_ITS ---
Date of service: 04/22/20 Time of Service: 08:54 History of Present Illness History of Present Illness Chief Complaint: Symptomatic left second hammertoe deformity Narrative: 80-year-old white male with chronic pain associated with a left second hammertoe which is interfering with shoe gear weightbearing and ambulation. Nonsurgical treatments have failed to provide sufficient relief of symptoms and he is requesting surgical correction. [facility] Medical History Macular degeneration of both eyes Surgical History H/O arthroscopy of left knee History of carpal tunnel release History of cholecystectomy History of colonoscopy History of colostomy History of colostomy reversal He also had his gallbladder removed during this surgery Hx of right knee surgery Social History Smoking/Tobacco Use Status: Never Smoking risk assessment performed?: Yes Alcohol Intake: never Drug use: Never Substance use type: does not use Current gender identity: male Do you feel safe at home: Yes Do you feel safe in your relationship?: Yes Meds Home Medications and Allergies Home Medications Medication Instructions Recorded Confirmed Type udvexmxvdji-byczvwaza-nsd C-Mn 2 cap PO DAILY cap 05/06/18 04/22/20 History capsule timolol maleate 0.5 % once daily 1 drp OP BID 05/06/18 04/22/20 History eye drops vitamins A,C,H-rbdh-qjhayx 7,160 1 tab PO BID tab 05/06/18 04/22/20 History unit-113 mg-100 unit tablet psyllium husk 1 tbsp PO DAILY 05/20/18 04/22/20 History ibuprofen 800 mg PO TID #30 tab 01/19/20 04/22/20 Rx Allergies Allergy/AdvReac Type Severity Reaction Status Date / Time morphine Allergy Severe Critical Verified 04/22/20 07:56 per MD H&P Sulfa (Sulfonamide Allergy Contraindic Verified 04/22/20 07:56 Antibiotics) ated oxycodone [From Percocet] AdvReac Contraindic Verified 04/22/20 07:56 ated Exam Narrative Exam Narrative: 80-year-old white male, pleasant in no acute distress. Head is normocephalic Eyes PERRLA Hearing is adequate Heart had regular rate and rhythm I detected no gallops rubs or murmurs Lung perry were clear Abdomen was soft Peripheral pulses are palpable at the ankle plus 1 out of 4 bilaterally. Capillary fill is under 3 seconds to all toes. No peripheral edema. Semirigid contracture of the left second toe is appreciated with pain noted associated with a distal keratosis. No active signs of infection at this point. Neurologically he appears grossly intact. Impressions: Symptomatic left second hammertoe deformity Plan: Soy is being brought to the OR for surgical repair of his left second hammertoe. Potential risk and complications have been discussed including pain, scarring, infection, under or overcorrection of the hammertoe potentially requiring revisional procedures. All questions have been answered. Informed consents been obtained. Results Last Vital Signs Temp 35.6 C L 04/22/20 07:41 Pulse 50 L 04/22/20 07:41 Resp 12 04/22/20 07:41 BP 129/79 04/22/20 07:41 Pulse Ox 95 04/22/20 07:41 COVID-19 Screening Have you, or household traveled for leisure in last 14 days?: No Had IN PERSON contact w/suspected or confirmed C-19 person: No
[2020-04-22] MEDS: Dexamethasone 4 MG/ML VIAL (09:05)
[2020-04-22] MEDS: ceFAZolin 1 GM/50 ML BAG IVPB (09:10)
[2020-04-22] MEDS: Lidocaine 1% Multi-Dose 50 ML VIAL (09:12)
[2020-04-22] MEDS: Bupivacaine 0.5% Pres-Free 30 ML VIAL (09:12)
--- NOTE | 2020-04-22 09:45 | W.PM.DSUDISC ---
Discharge Plan Disposition Patient Disposition: HOME Condition: Good Discharge Details Reason For Visit: Correction left second hammertoe deformity Attending Provider: Babar Jose Primary Care Provider: Carmella Byers Home Meds and New Rx's Prescriptions: Continued timolol maleate 0.5 % drops, once daily 1 drp OP BID RF: 0 PreserVision AREDS 7,160-113-100 fsdz-zv-tbfu tablet 1 tab PO BID RF: 0 Glucosamine-Chondroitin Complx capsule 2 cap PO DAILY RF: 0 psyllium husk 3 gram/5.4 gram Powder 1 tbsp PO DAILY RF: 0 ibuprofen 800 mg tablet 800 mg PO TID Qty: 30 RF: 1 Discharge Instructions Stand Alone Forms: Andreas Instructions-DSU Activity:: Elevate Remove Dressings/Wound Care:: Do Not Remove Shower/Bathe:: Cover Diet:: Normal Diet Discharge Orders Discharge Orders: Discharge Order (Routine); Ordered 04/22/20 Ordered By: Babar Jose DS: Diagnosis Discharge Diagnosis (1) Hammertoe of left foot: Status: Acute
--- NOTE | 2020-04-22 09:48 | W.PM.OP ---
Date of service: 04/22/20 Time of Service: 09:48 Operative Note Operative Note DATE OF PROCEDURE: 04/22/20 PRE-OP DIAGNOSIS: Left second hammertoe deformity POST-OP DIAGNOSIS: same PROCEDURE: Arthroplasty left second toe SURGEON: Babar Jose ANESTHESIA: MICHELLE ESTIMATED BLOOD LOSS: 1 PATHOLOGY: none sent TOURNIQUET TIME: 15 COMPLICATIONS: None Patient was transported to: same day Patient's condition: stable Indications: 80-year-old white male with chronic pain associated with a left second hammertoe deformity with a distal corn with history of ulceration has been chronically worsening. Nonoperative treatment to fail to provide sufficient relief of symptoms. He is opting for surgical repair of this painful digit. He is fully aware of the potential risk and complication pertaining to pain, scarring, infection, recurrence of deformity potentially requiring revisional procedures. Informed consents been obtained no promises made final outcome of surgery all questions answered in detail. Procedure Description: Soy brought to the operative suite placed in the supine position with a left foot prepped and draped in the usual sterile podiatric fashion. Timeout was performed per protocol. Anesthesia being obtained the left foot was exsanguinated well-padded ankle tourniquet inflated 250 mmHg. Attention was directed to the left second toe. Dorsal incision was made midline over the PIPJ approximately 1-1/2 cm in length. The incision was deepened in controlled depth fashion. Transverse tenotomy capsulotomy was performed at the PIPJ level the medial lateral collaterals were released and the head of proximal phalanx delivered into the wound. The head was noted notably arthritic with near complete loss of articular surface. With double-action bone cutting forceps the head was resected at its surgical neck. All rough and bony edges were rasped smooth. It was immediately noted that the contracture was resolved and the second toe was sitting in a more rectus position. I decided to not use a K wire due to the chronic lesion at the tip of the toe. As such copious irrigation was performed. The extensor tendon was repaired end-to-end with 3-0 Vicryl. The skin was coapted with simple interrupted suture of 4-0 nylon. Xeroform was applied to the incision and Betadine soaked gauze rolls were applied so as to formulate a splint dorsally and plantarly over the toe. Gauze fluff compression dressings were then applied to the foot in the usual fashion and the tourniquet was released to 15 minutes. Vascularity returned immediately to all toes. Sharp and sponge counts were correct. Patient left the OR vital signs stable vascular status intact he will be followed by myself in the office next week. Thank you for this sql consultant.
[2020-04-22 10:00] VITALS: RESP 14; TEMP 36.5
[2020-04-22 10:21] VITALS: BP 126/74; PULSE 50; RESP 14; TEMP 36.1; O2SAT 100
== END 2020-04-22 10:45 | disposition home or self-care (01) ==
PROVIDERS: PCP Nurse Practitioner Family; Visit Provider Podiatrist
PROC: (CPT 28285; principal; 2020-04-22 08:45)
DX: M20.42 Other hammer toe(s) (acquired), left foot (principal)
CPT/HCPCS: 28285; 99236; J0690; J1100; J1885; J2001; J2405

== ENCOUNTER → 2020-05-16 13:00 | Outpatient (BNVA) | payer MEDICARE, SELFPAY | PROVIDERS: PCP Nurse Practitioner Family; Visit Provider Student in an Organized Health Care Education/Training Program | DX: Z47.1 Aftercare following joint replacement surgery (principal); Z96.651 Presence of right artificial knee joint; M17.12 Unilateral primary osteoarthritis, left knee; M25.562 Pain in left knee | CPT/HCPCS: 20610; J1040 ==

== ENCOUNTER → 2020-07-04 08:51 | Outpatient (BNVA) | payer MEDICARE, SELFPAY | PROVIDERS: PCP Nurse Practitioner Family; Referring Provider Nurse Practitioner Family; Visit Provider Surgery | DX: K57.30 Diverticulosis of large intestine without perforation or abscess without bleeding (principal); Z87.19 Personal history of other diseases of the digestive system | CPT/HCPCS: 99212; 99213 ==

== ENCOUNTER 2020-07-04 10:49 | Outpatient (REF) | payer MEDICARE, SELFPAY ==
[2020-07-04 11:24] LABS: ALT 25 U/L (16-63); AST 19 U/L (15-37); Albumin 3.8 g/dL (3.4-5.0); Alkaline Phosphatase 75 U/L (46-116); Anion Gap 10.1 mmol/L (3-11); BUN 26 mg/dL (7-18); Bilirubin, Total 0.4 mg/dL (0.2-1.0); CO2 26.9 mmol/L (21.0-32.0); CREATININE 1.1 mg/dL (0.70-1.30); Calcium 9.3 mg/dL (8.5-10.1); Chloride 107 mmol/L (98-107); Glucose 100 mg/dL (74-106); Potassium 4.7 mmol/L (3.5-5.1); Sodium 144 mmol/L (136-145); Total Protein 7.1 g/dL (6.4-8.2)
== END 2020-07-04 10:50 | disposition home or self-care (01) ==
LOC: LBN 10:49
PROVIDERS: PCP Nurse Practitioner Family; Visit Provider Surgery
DX: R73.03 Prediabetes (principal); J45.909 Unspecified asthma, uncomplicated; Z87.19 Personal history of other diseases of the digestive system
CPT/HCPCS: 80053; 83036; 85025

== ENCOUNTER 2020-07-11 01:14 | Outpatient (CLI) | payer MEDICARE, SELFPAY ==
[2020-07-11] MEDS: Omnipaque 350 MG/ML 50 ML BTL PO (08:59)
[2020-07-11] MEDS: Breeza Beverage 473 ML BTL PO ×2 (09:00→09:02)
[2020-07-11] MEDS: Omnipaque 350 MG/ML 100 ML BTL IJ (09:46)
[2020-07-11] MEDS: Normal Saline - Diluent 50 ML VIAL IV (09:47)
[2020-07-11] MEDS: Normal Saline Flush 10 ML SYR IVP (09:47)
--- NOTE | 2020-07-11 10:12 | DI.CT_ITS ---
EXAM: CT ABDOMEN PELVIS W CLINICAL HISTORY: hernia at old stoma site on the left,VENTRAL HERNIA,K43.9. TECHNIQUE: Imaging Protocol: Axial computed tomography images with coronal and sagittal reformatted images were created and reviewed CONTRAST MATERIAL: Intravenous: Omnipaque 100cc Oral: Yes. Oral contrast was administered for bowel opacification. COMPARISON: CT ABDOMEN PELVIS WITH CONTRAST from 08/24/2013 FINDINGS: VISUALIZED LUNG BASES: Mild benign-appearing increased markings are noted in the right middle lobe. Also in the posterior basal segment of the right lower lobe. No pleural effusions. ABDOMEN: There is no ascites. LIVER: There benign-appearing cysts in the liver. Largest of these measures 9 millimeters. GALLBLADDER/BILIARY: The gallbladder surgically absent. CBD is not dilated. PANCREAS: No evidence of pancreatic mass nor dilatation of the pancreatic duct. SPLEEN: Spleen is not enlarged. No obvious intrasplenic lesions. Splenic and portal veins are paten t. ADRENALS: There are no significant adrenal masses. KIDNEYS:There are parapelvic cysts in both kidneys.. There is also a 5.6 x 4.5 cm cyst in the left k idney which exhibits some thin internal septation-. There are no solid renal masses. No calculi. N o true hydronephrosis nor hydroureter. No obvious abnormality in the urinary bladder. ABDOMINAL AORTA: Abdominal aorta is not enlarged. Incidentally noted is a retroaortic left renal vei ns which is seen approximately 5 percent of the general population. There is a density anterior to t he distal aorta which measures 1 cm wide by 0.5 cm AP by 2 cm craniocaudal probable lymph node. Ther e is no gross para-aortic adenopathy. No adenopathy around the aortic bifurcation nor along the maria eugenia c chains and there is no significant inguinal adenopathy. LYMPH NODES:As above. ABDOMINAL WALL/GI: There is a left inguinal hernia which contains fat. No bowel obstruction. PELVIS: GI: There is some thickening of the wall of the ascending-right colon which is difficult to assess wi thout oral contrast having reached this level. There does not appear to be evidence of a small-bowel obstruction..There is abundant fecal material in the sigmoid and descending-left colon distal to the splenic flexure. There is no obvious diverticular disease.However, there is abundant fecal material noted rectosigmoid and rectosigmoid is slightly distended with diameter 4 cm. LYMPH NODES: There is no intrapelvic nor inguinal adenopathy. REPRODUCTIVE: Prostate size upper normal. URINARY BLADDER: No calculi nor obvious masses evident OSSEOUS: No significant osseous lesions. Degenerative changes in the hips, significant more so on the left side. Multilevel chronic degenerat megha disc disease. IMPRESSION: 1. 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 Is difficult to differentiate from hydroneph rosis although the ureters are not dilated and there is no cortical mantle thinning. In addition, th ere is a partially calcified larger cyst in the left kidney measuring 6.1 cm craniocaudal by 5.6 cm x 4.5 cm. Bosniak type 2. Recommend further study of the kidneys with ultrasound. 2. Gallbladder surgically absent. The biliary tree is not dilated. 3. A few small benign cysts are noted in the liver. No ominous liver masses. 4. Advanced degenerative changes in the left hip. RADIATION DOSE DELIVERED: 1,085.23mGy.cm Total DLP DATA REPOSITORY: All CT scans at this facility are submitted to the National Radiology Data Registry (NRDR) Dose Index Registry (DIR) with the [employer] (ACR). RADIATION OPTIMIZATION: All CT scans at this facility use at least one of these dose optimization te chniques: automated exposure control; mA and/or kV adjustment per patient size (includes targeted exa ms where dose is matched to clinical indication); or iterative reconstruction.
== END 2020-07-11 01:34 ==
LOC: DI 01:15
PROVIDERS: PCP Nurse Practitioner Family; Visit Provider Surgery
DX: K43.9 Ventral hernia without obstruction or gangrene (principal); K40.90 Unilateral inguinal hernia, without obstruction or gangrene, not specified as recurrent; N28.1 Cyst of kidney, acquired; K76.89 Other specified diseases of liver; M16.12 Unilateral primary osteoarthritis, left hip; Z90.49 Acquired absence of other specified parts of digestive tract
CPT/HCPCS: 74177; J3490; Q9967

== ENCOUNTER → 2020-07-21 08:56 | Outpatient (BNVA) | payer MEDICARE, SELFPAY | PROVIDERS: PCP Nurse Practitioner Family; Visit Provider Surgery | DX: K43.9 Ventral hernia without obstruction or gangrene (principal); K40.90 Unilateral inguinal hernia, without obstruction or gangrene, not specified as recurrent; R73.01 Impaired fasting glucose; J45.909 Unspecified asthma, uncomplicated | CPT/HCPCS: 99213; 99214 ==

== ENCOUNTER 2020-07-21 11:42 | Outpatient (REF) | payer MEDICARE, SELFPAY ==
[2020-07-21 12:23] LABS: Abs Immature Grans 0.02 10^3/uL (0.0-0.06); Absolute Basophil Count 0.02 10^3/uL (0.0-0.2); Absolute Lymphocyte Count 1.28 10^3/uL (1.2-3.4); Absolute Monocyte Count 0.59 10^3/uL (0.1-0.8); Absolute Neutrophil Count 3.64 10^3/uL (1.2-6.7); Basophils % 0.3; Eosinophils % 3.5; HCT 41.1 % (40.0-50.0); HGB 13.6 g/dL (13.5-17.5); Immature Grans % 0.3; Lymphocytes % 22.3; MCH 30.9 pg (27.0-33.0); MCHC 33.1 % (32.0-36.0); MCV 93.4 fL (80-95); MPV 9.7 fL (8.0-11.0); Monocytes % 10.3; Neutrophils % 63.3; Nucleated RBC 0 %; Platelet Count 243 10^3/uL (130-400); RDW 12.9 % (11.8-14.1); RDW-SD 44.8 fL; WBC 5.75 10^3/uL (4.4-10.8)
[2020-07-21 12:24] LABS: Prothrombin Time 9.9 sec (9.3-11.0)
[2020-07-21 12:35] LABS: ALT 25 U/L (16-63); AST 17 U/L (15-37); Albumin 3.7 g/dL (3.4-5.0); Alkaline Phosphatase 71 U/L (46-116); Anion Gap 8.1 mmol/L (3-11); BUN 19 mg/dL (7-18); Bilirubin, Total 0.5 mg/dL (0.2-1.0); CO2 27.9 mmol/L (21.0-32.0); CREATININE 1.1 mg/dL (0.70-1.30); Calcium 8.7 mg/dL (8.5-10.1); Chloride 108 mmol/L (98-107); Glucose 93 mg/dL (74-106); Potassium 4.6 mmol/L (3.5-5.1); Sodium 144 mmol/L (136-145); TSH 5.29 uIU/mL (0.36-3.74); Total Protein 6.9 g/dL (6.4-8.2)
[2020-07-21 12:36] LABS: Hemoglobin A1C 5.8 % (<5.7)
== END 2020-07-21 11:43 | disposition home or self-care (01) ==
LOC: LBN 11:42
PROVIDERS: PCP Nurse Practitioner Family; Visit Provider Surgery
DX: E11.9 Type 2 diabetes mellitus without complications (principal); G56.02 Carpal tunnel syndrome, left upper limb; Z98.890 Other specified postprocedural states; K40.90 Unilateral inguinal hernia, without obstruction or gangrene, not specified as recurrent; K57.30 Diverticulosis of large intestine without perforation or abscess without bleeding; K43.9 Ventral hernia without obstruction or gangrene
CPT/HCPCS: 36415; 80053; 83036; 84443; 85025; 85610

== ENCOUNTER 2020-08-03 01:45 | Outpatient (CLI) | payer MEDICARE, SELFPAY ==
--- NOTE | 2020-08-03 14:06 | DI.US_ITS ---
APPROVED REPORT EXAM: Comprehensive 2D, Doppler, and color-flow Echocardiogram Patient Location: Out-Patient Human Resources Project Coordinator: Sanjuana Escobedo RDCS (AE) Indications: HTN, Preop Other Information Study Quality: Good Conclusion Left Ventricle : The left ventricle is normal size. The left ventricular systolic function is normal. The left ventricular ejection fraction is within the normal range. There is normal left ventricular wall thickness. There is normal LV segmental wall motion. The left ventricular diastolic function is normal. LVEF is 62%. Right Ventricle : The right ventricle is normal size. The right ventricular systolic function is norm al. The RVSP is 28.4mmHg. Atria : Left atrium is mildly dilated. The right atrium size is normal. Valves: There are no hemodynamically significant valvular lesions. Great Vessels : The aortic root is normal in size. 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 Aortic arc h is not well visualized. IVC is normal in size and collapses >50% with inspiration. Wall motion Left Ventricle The left ventricle is normal size. The left ventricular systolic function is normal. The left ventric ular ejection fraction is within the normal range. There is normal left ventricular wall thickness. T here is normal LV segmental wall motion. The left ventricular diastolic function is normal. There is no ventricular septal defect visualized. LVEF is 62%. Right Ventricle The right ventricle is normal size. The right ventricular systolic function is normal. The RVSP is 28 .4mmHg. Atria Left atrium is mildly dilated. The right atrium size is normal. The interatrial septum is intact with no evidence for an atrial septal defect. Aortic Valve The aortic valve is normal in structure. Aortic valve is trileaflet. There is no aortic valvular sten osis. No aortic regurgitation is present. Mitral Valve The mitral valve is normal in structure. No evidence of mitral valve stenosis. Trace to mild mitral r egurgitation. Tricuspid Valve The tricuspid valve is normal in structure. There is no tricuspid valve stenosis. Mild tricuspid regu rgitation. Pulmonic Valve The pulmonary valve is normal in structure. There is no pulmonic valvular stenosis. Mild pulmonic reg urgitation. Great Vessels The aortic root is normal in size. The pulmonary artery is normal. The ascending aorta is dilated (4. 3cm). Aortic arch is not well visualized. IVC is normal in size and collapses >50% with inspiration. Pericardium There is no pericardial effusion. 2D Dimensions IVSD d PLAX 0.95 cm M: 0.6-1.2 LV Vol A2C d MOD 93.8 mL LVPW d PLAX 0.95 cm M: 0.6 - 1.2 LV Vol A4C d MOD 116.5 mL LVID d PLAX 4.44 cm M: 4.2 - 5.8 LA vol/ BSA A2C s A-L 38.0 mL/m2 LVDs 2.90 cm M: 2.5 - 4.0 LA vol/ BSA A4C s A-L 33.6 mL/m2 Ao Root d 3.41 cm M: 3.1 - 3.7 LA Vol/ BSA Biplane s A-L 38.1 mL/m2 RA Area A4C 20.30 cm2 LA Area A4C s MOD 23.69 cm2 RA Vol/ BSA A4C s A-L 28.2 mL/m2 LA Area A2C s MOD 23.68 cm2 Ao Asc Diam d 4.35 cm M: 2.6 - 3.4 LV EF A4C MOD 63.4 % LV EF Teichholz 63.2 % LV EF A2C MOD 60.6 % LVEF (Wilde's) 61.71 % M: 52 - 72 LV EF Biplane MOD 61.7 % LV Volume 79.08 mL M: 62 - 150 SV 66.86 mL LV Volume Index 36.44 mL/m2 M: 34 - 74 SV Index 30.74 mL/m2 LV Vol Biplane MOD 108.3 mL FS 34.05 % M-Mode TAPSE 2.28 cm (M/F) >1.7 LV Diastology MV E' medial 0.070 (>0.07 m/s) E/A Ratio 0.8 LV E/e MED 9.55 (<14) MV E Vmax 0.67 (0.4-1.3 m/s) MV E' lateral 0.086 (>0.1 m/s) MV A Vmax 0.85 (0.4-1.3 m/s) LV E/e LAT 7.75 (<14) MV E/A Ratio 0.74 MV E/E' medial 9.56 MV E/E' lateral 7.79 Aortic Valve LVOT Area 3.46 cm2 AoV Area Vmax 2.85 cm2 LVOT Vmax 1.04 m/s AoV Area/ BSA (Vmax) 1.31 cm2/m2 LVOT Mean Woody. 0.69 m/s KOBY Mean Woody. 2.87 cm2 LVOT Peak Grad 4.3 mmHg KOBY Mean Woody. Index 1.32 cm2/m2 LVOT Mean Grad 2.2 mmHg LVOT VTI 0.245 m LVOT Diam s 2.05 cm AoV Vmax 1.25 m/s Velocity Ratio 0.83 AoV Mean Woody. 0.83 m/s AoV Peak Grad 6.3 mmHg LVOT SV 84.51 mL AoV Mean Grad 3.2 mmHg AoV VTI 0.270 m AoV Area VTI 3.13 cm2 AoV Area/ BSA (VTI) 1.44 cm/m2 Mitral Valve MV DT 332 (160-240 msec) MV PHT 96 msec MV Area PHT 2.29 cm2 MV VTI 0.275 m MV Area VTI 3.07 (4.0-6.0 cm2) Pulmonary Valve PV Vmax 1.37 (0.5-1.5 m/s) RVOT Peak Gr. 1.42 mmHg PV Peak Grad 7.5 mmHg RVOT Mean Gr. 0.65 mmHg PV Mean Grad 3.5 mmHg RVOT VTI 0.148 m PV VTI 0.283 m RVOT Vmax 0.59 m/s Tricuspid Valve TR Peak Grad 25.3 mmHg TR Vmax 2.52 m/s RA Pressure 3.00 mmHg RVSP (TR) 28.4 mmHg
== END 2020-08-03 02:05 ==
LOC: DI 01:45
PROVIDERS: PCP Nurse Practitioner Family; Visit Provider Surgery
DX: I10 Essential (primary) hypertension (principal); F17.210 Nicotine dependence, cigarettes, uncomplicated; Z01.810 Encounter for preprocedural cardiovascular examination; I77.810 Thoracic aortic ectasia
CPT/HCPCS: 93306

== ENCOUNTER 2020-08-29 04:02 | Outpatient (CLI) | payer MEDICARE, SELFPAY ==
[2020-08-29 11:21] LABS: Source Nasal/Nares
[2020-08-29 21:02] LABS: COVID-19 PCR Negative (Negative)
== END 2020-08-29 04:03 | disposition home or self-care (01) ==
LOC: LBO 04:02
PROVIDERS: PCP Nurse Practitioner Family; Visit Provider Surgery
DX: Z20.822 Contact with and (suspected) exposure to COVID-19 (principal); Z01.818 Encounter for other preprocedural examination
CPT/HCPCS: 87635

== ENCOUNTER → 2020-08-30 08:50 | Outpatient (BNVA) | payer MEDICARE, SELFPAY | PROVIDERS: PCP Nurse Practitioner Family; Referring Provider Nurse Practitioner Family; Visit Provider Surgery | DX: R69 Illness, unspecified (principal) ==

== ENCOUNTER 2020-08-30 09:44 | Inpatient (IN) | payer MEDICARE, SELFPAY ==
[2020-08-30] VITALS (12 sets, daily range): BP systolic 130–144; BP diastolic 71–88; PULSE 45–63; RESP 11–20; TEMP 35.8–36.5; TEMPC 36.5; O2SAT 95–99; BMI 28.6
--- NOTE | 2020-08-30 08:48 | W.ANESPRE ---
General Info Date of Service Date Performed: 08/30/20 Height: 6 ft Weight: 95.708 kg Body Mass Index (BMI): 28.6 Surgical Procedure: Operation Date: 08/30/20 11:55 Proposed Procedures Side Surgeon p Herniorrhaphy Inguinal Left DO deana Mckeon Herniorrhaphy Ventral open at old osteotomy site Verena Caballero DO Meds Allergies and Home Medications Allergies Allergy/AdvReac Type Severity Reaction Status Date / Time morphine Allergy Severe Critical Verified 08/30/20 10:05 per MD H&P Sulfa (Sulfonamide Allergy Contraindic Verified 08/30/20 10:05 Antibiotics) ated oxycodone [From Percocet] AdvReac Contraindic Verified 08/30/20 10:05 ated Home Medication Medication Instructions Recorded pgibfnlpoxv-pqxufgrma-znq C-Mn 2 cap PO DAILY cap 05/06/18 capsule vitamins A,C,D-yryi-rwmhjn 7,160 1 tab PO BID tab 05/06/18 unit-113 mg-100 unit tablet psyllium husk 1 tbsp PO DAILY 05/20/18 ibuprofen 800 mg PO TID #30 tab 01/19/20 latanoprost 0.005 % eye drops 1 drp OPHTHALMIC (EYE) DAILY 07/04/20 vitamins A,C,L-dcpg-pbxnoz 1 tab PO DAILY 08/30/20 [PreserVision AREDS] Current Visit Medications: Current Medications Generic Name Dose Route Start Last Admin Trade Name Freq PRN Reason Stop Dose Admin Acetaminophen 1,000 mg 08/30/20 06:00 Acetaminophen 500 Mg Tab PO 09/28/20 23:59 PREOP HELENA Gabapentin 300 mg 08/30/20 06:00 Gabapentin 300 Mg Cap PO 09/28/20 23:59 PREOP HELENA Ringer's Solution 1,000 mls @ 80 mls/hr 08/30/20 06:00 IV 09/28/20 23:59 INFUSION HELENA Cefazolin Sodium/Dextrose 1 gm in 50 mls @ 100 mls/hr 08/30/20 06:00 Ancef Duplex IVPB 08/30/20 23:59 PREOP HELENA IV Miscellaneous Supplies 1 each 08/30/20 06:00 Iv Access IV 09/28/20 23:59 DIRECTED HELENA Sodium Chloride 0 ml 08/30/20 06:00 Normal Saline Flush 10 Ml Syr IV 09/28/20 23:59 PRN PRN Sodium Chloride 0 ml 08/30/20 06:00 Normal Saline 10 Ml Vial IJ 09/28/20 23:59 DIRECTED PRN Sterile Water 0 ml 08/30/20 06:00 Water,Injection,Sterile 10 Ml Vial IJ 09/28/20 23:59 DIRECTED PRN PFSH Active Problems Active Problems: Problem Status Onset Code Inguinal hernia, left K40.90 Abnormal fasting glucose R73.01 Asthma J45.909 Ventral hernia K43.9 Primary osteoarthritis of left knee M17.12 Hammertoe of left foot M20.42 Carpal tunnel syndrome of left wrist G56.02 Carpal tunnel syndrome of right wrist G56.01 History of carpal tunnel surgery of right wrist Z98.890 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 Macular degeneration of both eyes H35.30 Medical History Medical History Abnormal fasting glucose Arthritis Asthma Color blindness Depressed mood Diverticular disease of colon Ectropion Glaucoma History of benign neoplasm of prostate History of small bowel obstruction Inguinal hernia, left Macular degeneration of both eyes Vitiligo Surgical History Surgical History H/O arthroscopy of left knee History of carpal tunnel release History of cholecystectomy History of colonoscopy History of colostomy History of colostomy reversal He also had his gallbladder removed during this surgery History of total right knee replacement (~12/2019) Hx of right knee surgery Tobacco Smoking/Tobacco Use Status: Never Alcohol Alcohol Intake: never Substance Use Substance use: Never Substance use type: does not use Vital Signs and Lab Results Lab Results Blood Type / Crossmatch: No Data to Display Complete Blood Count: No Data to Display Complete Metabolic Panel: No Data to Display Liver Function Panel: No Data to Display Coagulation Panel: No Data to Display Cardiac Panel: No Data to Display Arterial Blood Gas: No Data to Display Venous Blood Gas: No Data to Display Pancreas Panel: No Data to Display Thyroid Panel: No Data to Display Infectious Disease: Coronavirus (COVID-19)(PCR) Negative (Negative) 08/29/20 08:34 08/29/20 Coronavirus 2019 Source Nasal/nares 08/29/20 08:34 08/29/20 Blood Cultures: No Data to Display Toxicology Panel: No Data to Display Imaging and Studies Imaging and Studies Echocardiogram Summary: 08/12: LVEF 62%, no hemodynamically significant valvular lesions. Anesthesia Assessment and Plan Anesthesia History Personal History: No History of Anesthesia Complications Family History: No Family History of Anesthesia Complications Exercise Tolerance Exercise Tolerance: Metabolic Equivalents>4 Pertinent Negatives Pertinent Negatives: No Symptoms of GERD, No Major Cardiovascular Symptoms or Complaints and No Major Pulmonary Symptoms or Complaints Cardiac & Pulmonary Exam Cardiac Exam: Normal S1/S2 Heart Sounds Pulmonary Exam: Clear Bilateral Breath Sounds Airway Exam Known Difficult Airway: No Mallampati Class: 2 Mouth Opening: Normal (> 3cm) Thyromental Distance: Greater than 3 cm Neck Range of Motion: Full ROM Neck Circumference: Normal Teeth Condition: Normal Dentition and Removable Dentures/Plates Upper ASA Classification ASA Score: ASA 2 Emergency Case?: No NPO Status NPO Status: NPO Clears >2 hours, Solids >8 hours Anesthesia Plan Resuscitation Status: Full Code Anesthesia Technique: General Anesthesia Airway Planned: LMA Pain Management: Surgeon and patient request nerve block Monitors Used: Standard Monitors Preoperative Comments:: Multiple previous anesthetics here without complications, no airways (LMA/ETT) documented.
--- NOTE | 2020-08-30 10:00 | RT.EKG_ITS ---
APPROVED REPORT Exam: Resting ECG Reason for Exam: Irregular pulse on palpation, possible Afib Patient Location: I HR:51 bpm ECG Measurements Heart Rate 51 AXIS WA 158 P 48 QRSd 100 QRS -6 QT 457 T 2 QTc 420 Conclusion Sinus Bradycardia.V-rate 44- 64, mean< 60
[2020-08-30] MEDS: Gabapentin 300 MG CAP PO (10:33)
[2020-08-30] MEDS: Acetaminophen 500 MG TAB 1000 MG PO ×2 (10:33→17:58)
[2020-08-30] MEDS: Lactated Ringers 1,000 ML 80 ML IV (10:58)
--- NOTE | 2020-08-30 12:41 | W.PM.HP.N ---
Date of service: 08/30/20 Time of Service: 12:41 Assessment and Plan Assessment and plan (1) Inguinal hernia, left: Status: Acute Assessment and plan: Risks of the surgery include but are not limited to: Bleeding/infection/pneumonia/damage to blood vessels or bladder or bowels/blood clots or PE/chronic pain/urinary retention/chronic numbness/reoccurrence/reaction to mesh requiring removal/damage to testicle or sterility/complications of anesthesia. The pt will have a pre-Op PE with his/her PCP to ensure fitness for anesthesia. The procedure will be done with abx and under sterile conditions. The pt requires a ride home from surgery and someone to stay with the pt for 24 hrs after anesthesia. No lifting over 5 pounds for 3 weeks after surgery. Because we we are doing to hernia site, he may need to spend the night in the hospital. It depends on how large ventral hernia and how extensive the repaired this does become. We will plan on doing General with a block. Patient is very fit from a cardiovascular standpoint and I do not anticipate any problems with anesthesia. All questions were answered and patient is satisfaction. Patient is stable for proposed procedure today. 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 Breast cancer Good. He occasionally gets some burning The left groin or the ostomy site he normally pushes it back in and then it stops hurting. He has no pain in either side today. He denies any problems with moving his bowels or urinating. He has not had any changes to his health status or his medications. There was some question by anesthesia about some irregular heartbeats. An EKG was obtained which did show some occasional PACs. See echo below. All questions are answered. Patient is stable for proposed procedure today. Pt thinks has a left sided inguinal hernia. He occasional gets some burning in the LLQ. It has been there since last fall. He gets a burning feeling in left groin. He has to push it back in. He denies straining to move his bowels or to urinate. He doesn't smoke. At one point he did have a perforated diverticula and required an exploratory laparotomy with a diverting colostomy and subsequent colostomy takedown. On physical exam, he points to his left groin, As to where he is having the pain. But on exam it seems to be more over the site of the previous ostomy. But then he says something about having had hernia repair in the past. I did look through his [facility]'s chart, but there is no history of him having had any surgery at [facility]. The surgery was done at [facility]. I do not have any records of the surgery. He does not know when his last colonoscopy was pain in L groin bulge at ostomy site no Mi/CCVA no DM not smoker. Patient has had several surgeries and has had no problems with the anesthesia. He is still very active and cuts and stacks wood. He can walk up a flight of steps without getting chest pain or shortness of breath. He does not do well with narcotics. He is very stoic and a man of few words. I discussed the nature of inguinal hernias with the pt . I discussed the surgery in detail and the complications related to the surgery and the anesthesia. Pt. understands this, all questions were answered to the patient satisfaction and they signed the consent for surgery. Patient was given an educational booklet. Risks of the surgery include but are not limited to: Bleeding/infection/pneumonia/damage to blood vessels or bladder or bowels/blood clots or PE/chronic pain/urinary retention/chronic numbness/reoccurrence/reaction to mesh requiring removal/damage to testicle or sterility/complications of anesthesia. The pt will have a pre-Op PE with his/her PCP to ensure fitness for anesthesia. The procedure will be done with abx and under sterile conditions. The pt requires a ride home from surgery and someone to stay with the pt for 24 hrs after anesthesia. No lifting over 5 pounds for 3 weeks after surgery. Because we we are doing to hernia site, he may need to spend the night in the hospital. It depends on how large ventral hernia and how extensive the repaired this does become. We will plan on doing General with a block. Patient is very fit from a cardiovascular standpoint and I do not anticipate any problems with anesthesia. from 08/30. He did not do a bowel prep. Reviewed the case w/ [employer] REPRESENTATIVE. PAC's and stable for surgery echo: Conclusion Left Ventricle : The left ventricle is normal size. The left ventricular systolic function is normal. The left ventricular ejection fraction is within the normal range. There is normal left ventricular wall thickness. There is normal LV segmental wall motion. The left ventricular diastolic function is normal. LVEF is 62%. Right Ventricle : The right ventricle is normal size. The right ventricular systolic function is normal. The RVSP is 28.4mmHg. Atria : Left atrium is mildly dilated. The right atrium size is normal. Valves: There are no hemodynamically significant valvular lesions. Great Vessels : The aortic root is normal in size. 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 Aortic arch is not well visualized. IVC is normal in size and collapses >50% with inspiration. CT: MPRESSION: 1. 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 Is difficult to differentiate from hydronephrosis although the ureters are not dilated and there is no cortical mantle thinning. In addition, there is a partially calcified larger cyst in the left kidney measuring 6.1 cm craniocaudal by 5.6 cm x 4.5 cm. Bosniak type 2. Recommend further study of the kidneys with ultrasound. 2. Gallbladder surgically absent. The biliary tree is not dilated. 3. A few small benign cysts are noted in the liver. No ominous liver masses. 4. Advanced degenerative changes in the left hip. Review of Systems All systems reviewed & are unremarkable except as noted in HPI and below PFSH Medical History Abnormal fasting glucose Arthritis Asthma Color blindness Depressed mood Diverticular disease of colon Ectropion Glaucoma History of benign neoplasm of prostate History of small bowel obstruction Inguinal hernia, left Macular degeneration of both eyes Vitiligo Surgical History H/O arthroscopy of left knee History of carpal tunnel release History of cholecystectomy History of colonoscopy History of colostomy History of colostomy reversal He also had his gallbladder removed during this surgery History of total right knee replacement (~12/2019) Hx of right knee surgery Social History Smoking/Tobacco Use Status: Never Smoking risk assessment performed?: Yes Alcohol Intake: never Drug use: Never Substance use type: does not use Current gender identity: male Do you feel safe at home: Yes Do you feel safe in your relationship?: Yes Meds Allergies and Home Medications Allergies Allergy/AdvReac Type Severity Reaction Status Date / Time morphine Allergy Severe Critical Verified 08/30/20 10:05 per H&P Sulfa (Sulfonamide Allergy Contraindic Verified 08/30/20 10:05 Antibiotics) ated oxycodone [From Percocet] AdvReac Contraindic Verified 08/30/20 10:05 ated Home Medications Medication Instructions Recorded Confirmed Type [id number] C-Mn 2 cap PO DAILY cap 05/06/18 08/30/20 History capsule vitamins A,C,S-anlz-llkzbb 7,160 1 tab PO BID tab 05/06/18 08/30/20 History unit-113 mg-100 unit tablet psyllium husk 1 tbsp PO DAILY 05/20/18 08/30/20 History ibuprofen 800 mg PO TID #30 tab 01/19/20 08/30/20 Rx latanoprost 0.005 % eye drops 1 drp OPHTHALMIC (EYE) DAILY 07/04/20 08/30/20 History vitamins A,C,V-bhnb-gnkerz 1 tab PO DAILY 08/30/20 08/30/20 History [PreserVision AREDS] Exam Const General: cooperative, healthy appearing, comfortable, no acute distress, well developed and well groomed Nutritional Appearance: average body habitus and well nourished Orientation: alert, awake and oriented x3 HENMT Head: normal to inspection, normocephalic and atraumatic Ears: external ears normal General nose exam: external nose normal Face and sinus: normal facial exam and sinuses nontender Mouth: oral mucosae normal, lip normal, tongue normal and moist mucous membranes Teeth and gingiva: dentition normal Other: FLANDREAU Eyes General: appearance normal, both eyes and all related structures Conjunctivae: conjunctivae normal Sclera: sclerae normal Pupils: PERRL Neck Neck: normal visual inspection and full ROM Chest Chest: normal inspection of the chest Resp Effort & Inspection: normal respiratory effort, able to speak in complete sentences, no cough, no nasal flaring, not tachypneic and no use of accessory muscles Auscultation: clear to auscultation bilaterally, no rales, no rhonchi and no wheezes Cardio Jugular venous pressure: no JVD Rate: regular rate Rhythm: regular rhythm GI Inspection: normal to inspection, no edema and non-distended Palpation: soft, no masses, nontender and No ascites Auscultation: normal bowel sounds Other: L inguinal hernia- examined. no pain or protrusion today. site marked. L sided previous ostomy site herniation. Skin General skin exam: no rashes or lesions noted Trauma: no lacerations or abrasions Neuro General: patient alert, patient oriented x3, oriented, gait normal, moves all extremities, no focal motor deficits and CN's II-XI intact bilaterally Cognition: normal cognition Speech: speech normal Gait: normal gait Motor: muscle tone normal throughout Extrem General: normal to inspection, full ROM and no clubbing, cyanosis or edema Psych Appearance: grossly normal and well kempt Mental Status: mental status grossly normal Speech and Movement: speech and movement normal Affect: normal affect Results Last Vital Signs Temp 35.8 C L 08/30/20 10:07 Pulse 63 08/30/20 10:07 Resp 15 08/30/20 10:07 BP 135/75 08/30/20 10:07 Pulse Ox 95 08/30/20 10:07 COVID-19 Screening Have you, or household traveled for leisure in last 14 days?: No Had IN PERSON contact w/suspected or confirmed C-19 person: No
[2020-08-30] MEDS: ceFAZolin 1 GM/50 ML BAG IVPB (13:15)
--- NOTE | 2020-08-30 13:41 | W.ANESNERVE ---
Nerve Block Single Injection Procedure Date and Time Date Performed: 08/30/20 Procedure Start: 13:22 Location Where Procedure Performed Procedure Location: Operating Room Procedure Stop: 13:29 Reason Performed: Postoperative Analgesia Requesting Provider: Verena Caballero Timeout Performed Timeout Performed: Yes Monitoring Used ECG, Blood Pressure, SpO2, ETCO2 and See EMR for corresponding vital signs Sterility Sterility: Hand Hygiene, Surgical Cap, Surgical Mask and Chlorhexidine Sedation Given During Procedure Sedation Given (Indicate Dose Given): Other: Medication/Route/Dose:: n/a Patient Mental Status Patient Mental Status: Performed under general anesthesia Nerve Block 1st Nerve Block: Laterality: Left Block Type: TAP Bilateral Needle / Catheter Used: 100mm SonoPlex II Local Anesthetic Bolus (Indicate Dose Given): Injected in 3-5ml increments after negative blood aspiration, Bupivacaine 0.375% Dose:: 15 mL and Exparel Dose:: 10 mL Additives (Indicate Dose Given): None Ultrasound: Sterile probe cover and gel used Ultrasound Image Saved?: Yes Nerve Stimulator: Not Used Paresthesia: None (n/a) Procedure Tolerated: No Complications Procedure Outcome: Successful (block was performed) Performed By: Kirill Pitts 2nd Nerve Block: Laterality: Left Block Type: Rectus Shealth Unilateral Needle / Catheter Used: 100mm SonoPlex II Local Anesthetic Bolus (Indicate Dose Given): Bupivacaine 0.375% Dose:: 15 mL and Exparel Dose:: 10 mL Additives (Indicate Dose Given): None Ultrasound: Sterile probe cover and gel used Ultrasound Image Saved?: Yes Nerve Stimulator: Not Used Paresthesia: None (n/a) Procedure Tolerated: No Complications Procedure Outcome: Successful (block was performed) Performed By: Kirill Pitts
[2020-08-30] MEDS: Lidocaine 1% Pres-Free 5 ML VIAL (14:46)
--- NOTE | 2020-08-30 15:40 | W.ANESPOSTOP ---
Postoperative Evaluation Date, Time and Location Date Performed: 08/30/20 Time Performed: 15:40 Patient Location: PACU Vital Signs Most Recent Imported Vital Signs: Most Recent Vital Signs Temp Pulse Resp BP Pulse Ox 35.8 C L 63 15 135/75 95 08/30/20 10:07 08/30/20 10:07 08/30/20 10:07 08/30/20 10:07 08/30/20 10:07 Most Recent Manually Entered Vital Signs: Adult Blood Pressure: 139/71 Heart Rate: 50 Respirations: 12 Oxygen Saturation (%): 98 Temperature (C): 36.5 C Pain Score (0-10 Scale): 0 Pain Score Most Recent Pain Score: Most Recent Pain Score Pain Level 1 08/30/20 10:07 Assessment Mental Status: Arousable with meaningful communication Airway and Respiratory Function: Patent airway with normal (patient baseline) respiratory exam Cardiovascular Function: Hemodynamically Stable Hydration Status: Adequately Hydrated Nausea & Vomiting: No Nausea or Vomiting Pain: Pt. Denies Any Pain Peripheral Nerve Block: Regional nerve block not resolved at time of post operative discharge
--- NOTE | 2020-08-30 17:16 | ROE_ITS ---
Date of service: 08/30/20 Time of Service: 17:16 Operative Note Operative Note DATE OF PROCEDURE: 08/30/20 PRE-OP DIAGNOSIS: L inguinal hernia/herniation of prior ostomy site POST-OP DIAGNOSIS: same PROCEDURE: open repair w/ mesh x2 TUBE MACHINE OPERATOR: Merary Reeves ANESTHESIA TYPE: Local By Surgeon, General LMA/ETT and Primary Nerve Block Refer to Anesthesia Record ESTIMATED BLOOD LOSS: 5 PATHOLOGY: none sent COMPLICATIONS: None Patient was transported to: PACU Patient's condition: stable Implants: see RN notes Procedure Description: INDICATIONS: The pt is here today for surgery regarding symptomatic --- inguinal hernia that has failed outpatient conservative medical management and he is here today for repair. Informed consent was obtained, explaining risks and benefits of the procedure including but not limited to bleeding, infection, pneumonia, blood clots, chronic pain, chronic numbness, d amage to testicle resulting in removal, recurrence of hernia, reaction to Mesh necessitating removal, and other unforetold complications, and complications of anesthesia-which were addressed by the HOME HEALTH NURSE. The patient is marked in preOp prior to the procedure DESCRIPTION OF PROCEDURE: The pt is then brought to the operative room suite. Anesthesia was administered per the Department of Anesthesia. A nerve block was performed by anesthesia under US guidance using Exparel. The patient was prepped and draped in the usual sterile fashion using ChloraPrep scrub solution. Pause for the cause was done. He did receive preop IV antibiotics. The abdomen is prepped and draped in usual sterile fashion using a ChloraPrep scrub solution. The genitals are prepped using Betadine. The hernia site was covered with a towel and will be attended to secondly. Timeout was performed. The hernia at the old ostomy site is attended to first. 12 blade is used to excise the scar from the previous ostomy site the surrounding tissue is dissected off the fascia. There is a very minor defect through the fascia. This was enlarged to facilitate placing a medium Ventralex patch. A finger was placed through the defect fact and swept away all of the underlying omental adhesions. The plan patch is placed in through the defect. The defect was closed, over sewn with 2-0 vicryl and was copiously irrigated. De ep tissue was approximated with 3-0 Vicryl and skin was approximated with 4-0 Monocryl in a running subcuticular fashion. Skin glue was applied. The left inguinal hernia was then attended to. 10 cc of 1% lidocaine is used for local anesthetization . A #12 blade was used to make an incision over the external ring. Electrocautery used to provide hemostasis and dissect down to the fascia. The fascia was pretty much obliterated and there was nothing to open. The cord is elevated. The nerve was not identified. There large is a cord lipomas. This is tied off using a 2-0 Vicryl tie and excised. Electro-cautery is used to provide hemostasis. A Anay drain was placed around the cord to assist in mobilization. The cord was explored. There was is hernia sac on the cord. There is no direct hernia pushing through the floor. The hernia sac is dissected off the cord using a combination of blunt dissection and electrocautery. Electrocautery is used to provide hemostasis. There are no contents within the hernia sac. The hernia sac is than inverted and returned to the abdominal cavity. A XL size plug is than inserted into the defect through the internal ring, and over sewn to tighten up the ring with 2-0 vicryl. Please see RN notes from Lot number of the [employer] mesh patch/plug. The cord structures are still able to freely move through the ring itself. The patch was then placed onto the floor, and using 2-0 Vicryl, sewn into the pubic tubercle and the shelving portions of the inguinal ligament, in the standard Lichenstein fashion. The tails of the mesh are brought around the cord, sewn together w/ 2-0 Vicryl, and tucked under the external oblique. The wound was copiously irrigated. There was no bleeding noted. The drain was removed. All structures are returned to normal anatomical position. The nerve is not sewn into the mesh, nor caught up in any sutures. The remnants of the external oblique are dissected out and re-approximated using 2- 0 vicryl in a running fashion. Deep tissue was approximated with 3-0 Vicryl in a running fashion, and skin was approximated with 4-0 Monocryl in a running subcuticular fashion. Skin glue and sterile dressings are applied. The patient tolerated the procedure without complications to recovery in stable condition. NISHA MENDOZA, DO
[2020-08-30] MEDS: Tamsulosin 0.4 MG CAPCR PO (17:57)
[2020-08-30] MEDS: Docusate Sodium 100 MG CAP PO (20:10)
[2020-08-30] MEDS: Ibuprofen 400 MG TAB PO (20:11)
--- NOTE | 2020-08-30 21:36 | W.PM.PROGNOT ---
Date of Service Date of service: 08/30/20 Time of Service: 20:00 Assessment and Plan Assessment and plan (1) Inguinal hernia, left: Status: Acute Assessment and plan: The patient is doing well post-op. His pain is well controlled- mild discomfort. He having no nausea or vomiting. The pt is not having any chest pain or SOB, productive cough; no calf pain or swelling. The pt is making good urine/he has urinated since surgery. The pt pain is adequately controlled. The case was discussed with nursing and patient?s progress reviewed. All of the pt's home medications were addressed and adjusted accordingly for their oral intact status. HEENT: no jaundice. no eye pain/drainage/redness/swelling. Mild sore throat Cardio- NSR no chest pain, BP stable. Pulm: no sob or productive cough. no hemoptysis Incision- clean/dry. Dressing intact no excessive bleeding or drainage I discussed with the patient about the findings in surgery and the pt's progress. We reviewed expectations for progress in the hospital; what the pt could expect for recovery time and length of stay. We discussed the importance of walking and pulmonary toilet to avoid blood clots and pneumonia. Continue current plans for pulmonary toilet, GI and DVT prophylaxis. We shall continue the current plan for pain management as it is at an appropriate level, and working well for the pt. Appropriate measures will be taken for constipation prevention, and this was also reviewed with the pt. The wound care plan was reviewed with nursing as well. pt should be able to d/c home tomorrow. Patient does not. Narcotic pain medication. He can use Tylenol and ibuprofen and ice for pain control. He has a PCOS dressing system in place. He will need to cover this to shower. He can remove this in its entirety on Saturday. After the dressing system is removed, he can shower without covering the wound. No lifting over 5 pounds for 2 weeks. He will follow-up with myself in 1 week's time. Discharge instructions are left on the chart. Dr. Goode or COLEMAN Mooney, will see him in a.m. for discharge. 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
--- NOTE | 2020-08-30 21:48 | DSE_ITS ---
Date of service: 08/31/20 Time of Service: 09:00 DS: Diagnosis Discharge Diagnosis (1) Inguinal hernia, left: Status: Acute (2) Asthma: Status: Acute (3) Ventral hernia: Status: Acute (4) Macular degeneration of both eyes: Status: Chronic (5) Glaucoma: Status: Inactive (6) Vitiligo: Status: Inactive (7) Abnormal fasting glucose: Status: Acute (8) Diverticular disease of colon: Status: Acute Discharge Plan Disposition Patient Disposition: HOME Condition: Good Discharge Details Reason For Visit: S/P HERNIA REPAIR X2 Admit Date/Time: 08/30/20 09:44 Admit Provider: Verena Caballero Attending Provider: Verena Caballero Primary Care Provider: Carmella Byers Hospital Course Hospital Course: pt underwent uneventful left inguinal hernia repair & hernia defect at the old stomal site 08/30. He was kept overnight for pain control, hydration, wound care, and observation. He had no postoperative complications and tolerated his procedures well. He is being discharged on 08/31, with instructions in wound care, activity, and warning signs. He will follow-up with my office in 1 week's time. Please see discharge instructions. Home Meds and New Rx's Prescriptions: New metaxalone [Skelaxin] 800 mg tablet 800 mg PO TID PRN (Reason: pain > 7) Qty: 30 RF: 0 docusate sodium [Colace] 100 mg capsule 100 mg PO BID Qty: 60 RF: 0 No Action PreserVision AREDS 7,160-113-100 [id number] tablet 1 tab PO BID RF: 0 Glucosamine-Chondroitin Complx capsule 2 cap PO DAILY RF: 0 latanoprost 0.005 % drops 1 drp ophthalmic (eye) DAILY RF: 0 psyllium husk 3 gram/5.4 gram Powder 1 tbsp PO DAILY RF: 0 ibuprofen 800 mg tablet 800 mg PO TID Qty: 30 RF: 1 PreserVision AREDS 7,160 unit- 113 mg-100 unit Tablet 1 tab PO DAILY RF: 0 Discharge Instructions Additional Instructions: Dr. Caballero HERNIA REPAIR ? POSTOPERATIVE INSTRUCTIONS Patients who have this type of surgery can usually be expected to return to work within two weeks and have minimal amounts of discomfort. ? ACTIVITY: . On the day following surgery, you can be up and about as desired. ? LIFTING: Restrict your lifting to no more than five (5) pounds for the first week following surgery. For the second week after surgery, don?t lift more than ten pounds. We will decide when you are done with restrictions and when you can return to work, at your follow-up appointment. No sexual activity for two weeks. ? DIET: There are no dietary restrictions following surgery. You do want to make sure your bowels are moving regularly and avoid straining to move your bowels. Straining could cause bleeding or disruption of the repair. ? INCISION CARE: You had a wound VAC dressing system over the incisions. You will need to cover this to shower. The pump/ Monitor normally flashes green. If the monitor is flashing orange or red, please call the surgical office for assistance. If this happens after hours, you can turn the pump/monitors off for the night, and contact our office in the am. ? SIGNS OF INFECTION: It is not unusual to have some black and blue discoloration of the skin around the incision, but also scrotum and penis. It will slowly disappear. If you have any increased redness, drainage, fever (above 100 degrees), please contact your doctor for an examination. ? DISCOMFORT: You may expect to have some mild discomfort at the incision sight. If severe pain develops you should contact your doctor for further instructions. ? URINATION: Patients who have hernia surgery, will occasionally have problems urinating. If you experience problems, and are not able to urinate within 6 hours following your surgery, please call your doctor immediately or go to your nearest Emergency Room for evaluation. ? DRIVING: NO driving for three (3) days after surgery, or if you are still taking narcotic pain medication. ? MEDICATIONS: Alternate Tylenol 1000mg by mouth every 8 hours and Ibuprofen 600mg every 6 hours. Make sure you take ibuprofen with food and not on an empty stomach. Take the Tylenol and ibuprofen continuously for the first 72hrs- not just when you have pain. Use the Skelaxin (muscle relaxer)l for breakthrough pain- you do not have to take this medication if you don't need it. Use ICE! Twenty minutes on, and then off, continuously for the first 72hours. Pain medications can make you very constipated. Make sure you are moving your bowels daily. If not, take milk of magnesia. Anesthesia makes you very constipated. Take a dose of milk of magnesia the morning after surgery. ? REPORT: Unusual swelling, severe pain, unresolved nausea, signs of infection, or difficulty in urination to your surgeon. Follow up in clinic with Dr. Caballero in 1-2 weeks. [phone] Activity:: see above Equipment/Supplies:: No Equipment Needed Diet:: Normal Diet DS: Data Vitals/I&O Vitals and I&O: Vital Signs Temperature 35.9 C L 08/30/20 17:15 Temperature Source Temporal Artery Scan 08/30/20 17:15 Pulse 52 L 08/30/20 17:15 Pulse Rhythm Regular 08/30/20 17:20 Respiratory Rate 18 08/30/20 17:15 Respiratory Effort Non-Labored 08/30/20 17:20 Respiratory Depth Normal 08/30/20 17:20 Respiratory Pattern Normal 08/30/20 17:20 Blood Pressure 144/78 H 08/30/20 17:15 Pulse Oximetry 96 08/30/20 17:15 Respiratory End-tidal CO2 30 08/30/20 16:24 Oxygen Delivery Method Room Air 08/30/20 17:15 Oxygen Flow Rate 0 08/30/20 17:15 Pain Level 0 08/30/20 17:58 Intake & Output 08/29/20 08/30/20 08/30/20 23:59 11:59 23:59 Intake Total 250 / 250 Output Total 1200 / 1200 Balance -950 / -950 Weight 96.8 kg Intake: IV 250 / 250 Output: Urine 1200 / 1200 Other: Urine Color Pale Yellow Urine Appearance Clear Emesis Description None Voiding Methods Toilet [facility] Medical History (Updated 08/30/20 @ 21:37 by Verena Caballero DO) Abnormal fasting glucose Arthritis Asthma Color blindness Depressed mood Diverticular disease of colon Ectropion Glaucoma History of benign neoplasm of prostate History of small bowel obstruction Inguinal hernia, left Macular degeneration of both eyes Vitiligo Surgical History H/O arthroscopy of left knee History of carpal tunnel release History of cholecystectomy History of colonoscopy History of colostomy History of colostomy reversal He also had his gallbladder removed during this surgery History of total right knee replacement (~12/2019) Hx of right knee surgery Social History Smoking/Tobacco Use Status: Never Smoking risk assessment performed?: Yes Alcohol Intake: never Drug use: Never Substance use type: does not use Current gender identity: male Do you feel safe at home: Yes Do you feel safe in your relationship?: Yes
[2020-08-30] MEDS: Normal Saline Flush 10 ML SYR IVP (21:52)
[2020-08-31] MEDS: Acetaminophen 500 MG TAB 1000 MG PO ×2 (02:32→10:54)
[2020-08-31] MEDS: Ibuprofen 400 MG TAB PO ×2 (02:33→08:04)
[2020-08-31 07:17] VITALS: BP 115/60; PULSE 44; RESP 16; TEMP 36.4; O2SAT 95
[2020-08-31] MEDS: Docusate Sodium 100 MG CAP PO (08:04)
[2020-08-31] MEDS: Psyllium PKT 1 EACH PO (08:04)
--- NOTE | 2020-08-31 09:48 | PGE_ITS ---
Date of Service Date of service: 08/31/20 Time of Service: 09:48 Assessment and Plan Assessment and plan (1) Inguinal hernia, left: Status: Acute Assessment and plan: POD #1 s/p Ventral Hernia and Left inguinal hernia repair with mesh. Patient is tolerating a regular diet Pain is well controlled with Tylenol No difficulty urinating No fevers overnight. Patient education provided regarding care of the TONYA dressing. This can remain in place for 7 days. This should remain in place until 09/06/20. It can be removed sooner if the device malfunctions. He verbalized understanding and will call the office with any questions or concerns. He states he is already scheduled for follow up on 09/09. He verbalized understanding of his restrictions of no lifting >5 pounds x 2 we eks. D/C home later today (2) Asthma: Status: Acute (3) Ventral hernia: Status: Acute (4) Macular degeneration of both eyes: Status: Chronic (5) Glaucoma: Status: Inactive (6) Vitiligo: Status: Inactive (7) Abnormal fasting glucose: Status: Acute (8) Diverticular disease of colon: Status: Acute Subjective Subjective Interval history since last seen: Patient reports he is doing very well today. He denies any pain or swelling and describes that his left LE pain that he has been having has improved as well. He deneis any difficulty urinating. Denies any chest pain or SOB. Exam Const General: cooperative, healthy appearing and comfortable Orientation: alert and oriented x3 Resp Effort & Inspection: normal respiratory effort, no audible wheezes and no cough GI Palpation: soft, no guarding and nontender Other: TONYA dressing located on left side of ventral hernia site to prevent seroma. Left inguinal hernia incision with skin a fix in place. No erythema, swelling or induration. Objective Last Vital Signs Temp 36.4 C L 08/31/20 07:17 Pulse 44 L 08/31/20 07:17 Resp 16 08/31/20 07:17 BP 115/60 08/31/20 07:17 Pulse Ox 95 08/31/20 07:17
--- NOTE | 2020-08-31 09:54 | W.PM.DS.N ---
Date of service: 08/31/20 Time of Service: 09:54 DS: Diagnosis Discharge Diagnosis (1) Inguinal hernia, left: Status: Acute (2) Asthma: Status: Acute (3) Ventral hernia: Status: Acute (4) Macular degeneration of both eyes: Status: Chronic (5) Glaucoma: Status: Inactive (6) Vitiligo: Status: Inactive (7) Abnormal fasting glucose: Status: Acute (8) Diverticular disease of colon: Status: Acute Discharge Plan Disposition Patient Disposition: HOME Condition: Good Discharge Details Reason For Visit: S/P HERNIA REPAIR X2 Admit Date/Time: 08/30/20 09:44 Admit Provider: Verena Caballero Attending Provider: Verena Caballero Primary Care Provider: Carmella Byers Hospital Course Hospital Course: pt underwent uneventful left inguinal hernia repair & hernia defect at the old stomal site 08/30. He was kept overnight for pain control, hydration, wound care, and observation. He had no postoperative complications and tolerated his procedures well. He is being discharged on 08/31, with instructions in wound care, activity, and warning signs. He will follow-up in the office on 09/09. Please see discharge instructions. Home Meds and New Rx's Prescriptions: New docusate sodium [Colace] 100 mg capsule 100 mg PO BID Qty: 60 RF: 0 Continued PreserVision AREDS 7,160-113-100 [id number] tablet 1 tab PO BID RF: 0 Glucosamine-Chondroitin Complx capsule 2 cap PO DAILY RF: 0 latanoprost 0.005 % drops 1 drp ophthalmic (eye) DAILY RF: 0 psyllium husk 3 gram/5.4 gram Powder 1 tbsp PO DAILY RF: 0 ibuprofen 800 mg tablet 800 mg PO TID Qty: 30 RF: 1 PreserVision AREDS 7,160 unit- 113 mg-100 unit Tablet 1 tab PO DAILY RF: 0 Discharge Instructions Additional Instructions: Dr. Caballero HERNIA REPAIR ? POSTOPERATIVE INSTRUCTIONS Patients who have this type of surgery can usually be expected to return to work within two weeks and have minimal amounts of discomfort. ? ACTIVITY: . On the day following surgery, you can be up and about as desired. ? LIFTING: Restrict your lifting to no more than five (5) pounds for the first week following surgery. For the second week after surgery, don?t lift more than ten pounds. We will decide when you are done with restrictions and when you can return to work, at your follow-up appointment. No sexual activity for two weeks. ? DIET: There are no dietary restrictions following surgery. You do want to make sure your bowels are moving regularly and avoid straining to move your bowels. Straining could cause bleeding or disruption of the repair. ? INCISION CARE: You had a wound VAC dressing system over the incisions. You will need to cover this to shower. The pump/ Monitor normally flashes green. If the monitor is flashing orange or red, please call the surgical office for assistance. If this happens after hours, you can turn the pump/monitors off for the night, and contact our office in the am. ? SIGNS OF INFECTION: It is not unusual to have some black and blue discoloration of the skin around the incision, but also scrotum and penis. It will slowly disappear. If you have any increased redness, drainage, fever (above 100 degrees), please contact your doctor for an examination. ? DISCOMFORT: You may expect to have some mild discomfort at the incision sight. If severe pain develops you should contact your doctor for further instructions. ? URINATION: Patients who have hernia surgery, will occasionally have problems urinating. If you experience problems, and are not able to urinate within 6 hours following your surgery, please call your doctor immediately or go to your nearest Emergency Room for evaluation. ? DRIVING: NO driving for three (3) days after surgery, or if you are still taking narcotic pain medication. ? MEDICATIONS: Alternate Tylenol 1000mg by mouth every 8 hours and Ibuprofen 600mg every 6 hours. Make sure you take ibuprofen with food and not on an empty stomach. Take the Tylenol and ibuprofen continuously for the first 72hrs- not just when you have pain. Use the Skelaxin (muscle relaxer)l for breakthrough pain- you do not have to take this medication if you don't need it. Use ICE! Twenty minutes on, and then off, continuously for the first 72hours. Pain medications can make you very constipated. Make sure you are moving your bowels daily. If not, take milk of magnesia. Anesthesia makes you very constipated. Take a dose of milk of magnesia the morning after surgery. ? REPORT: Unusual swelling, severe pain, unresolved nausea, signs of infection, or difficulty in urination to your surgeon. Follow up in clinic with Dr. Caballero in 1-2 weeks. [phone] Stand Alone Forms: Nursing Discharge Form Referrals: Verena Caballero DO [OSTEOPATHIC DOCTOR] - 09/09/20 10:00 am Activity:: see above Equipment/Supplies:: No Equipment Needed Diet:: Normal Diet Discharge Orders Discharge Orders: Discharge Order (Routine); Ordered 08/31/20 Ordered By: Merary Reeves DS: Summary Time Spent with Patient providing and/or coordinating discharge services: Less than 30 minutes Status at Discharge Functional status at discharge: independent ambulation Overall status at discharge: patient is back to baseline Mental Status: mental status grossly normal Speech and Movement: speech and movement normal Mood: congruent mood Affect: normal affect Exam Psych Mental Status: mental status grossly normal Speech and Movement: speech and movement normal Mood: congruent mood Affect: normal affect DS: Data Vitals/I&O Vitals and I&O: Vital Signs Temperature 36.4 C L 08/31/20 07:17 Temperature Source Tympanic 08/31/20 07:17 Pulse 44 L 08/31/20 07:17 Pulse Rhythm Regular 08/31/20 02:45 Respiratory Rate 16 08/31/20 07:17 Respiratory Effort Non-Labored 08/31/20 02:45 Respiratory Depth Normal 08/31/20 02:45 Respiratory Pattern Normal 08/31/20 02:45 Blood Pressure 115/60 08/31/20 07:17 Pulse Oximetry 95 08/31/20 07:17 Respiratory End-tidal CO2 30 08/30/20 16:24 Oxygen Delivery Method Room Air 08/31/20 07:17 Oxygen Flow Rate 0 08/31/20 07:17 Pain Level 0 08/31/20 08:04 Intake & Output 08/30/20 08/31/20 08/31/20 18:59 06:59 18:59 Intake Total 250 / 250 Output Total 1200 / 1999 800 / 1999 Balance -950 / -1750 -800 / -1750 Weight 96.8 kg Intake: IV 250 / 250 Output: Urine 1199 Other: Urine Color Pale Yellow Yellow Urine Appearance Clear Clear Urine Odor None Emesis Description None Voiding Methods Toilet Toilet [facility] Medical History (Updated 08/30/20 @ 21:37 by Verena Caballero DO) Abnormal fasting glucose Arthritis Asthma Color blindness Depressed mood Diverticular disease of colon Ectropion Glaucoma History of benign neoplasm of prostate History of small bowel obstruction Inguinal hernia, left Macular degeneration of both eyes Vitiligo Surgical History H/O arthroscopy of left knee History of carpal tunnel release History of cholecystectomy History of colonoscopy History of colostomy History of colostomy reversal He also had his gallbladder removed during this surgery History of total right knee replacement (~12/2019) Hx of right knee surgery Social History Smoking/Tobacco Use Status: Never Smoking risk assessment performed?: Yes Alcohol Intake: never Drug use: Never Substance use type: does not use Current gender identity: male Do you feel safe at home: Yes Do you feel safe in your relationship?: Yes
[2020-08-31 11:02] VITALS: BP 120/66; PULSE 53; RESP 16; TEMP 36.3; O2SAT 97
== END 2020-08-31 12:14 | disposition home or self-care (01) | DRG 352 ==
LOC: PDS 09:46 → MS 16:36
PROVIDERS: Admitting Provider Surgery; PCP Nurse Practitioner Family; Visit Provider Surgery
PROC: 0YU60JZ Supplement Left Inguinal Region with Synthetic Substitute, Open Approach (ICD-10-PCS; CPT 49505; principal; 2020-08-30 11:45)
PROC: 0YU60JZ Supplement Left Inguinal Region with Synthetic Substitute, Open Approach (ICD-10-PCS; CPT 49505; 2020-08-30 11:45)
DX: K40.90 Unilateral inguinal hernia, without obstruction or gangrene, not specified as recurrent (principal); K43.2 Incisional hernia without obstruction or gangrene; D17.6 Benign lipomatous neoplasm of spermatic cord; J45.909 Unspecified asthma, uncomplicated; F32.9 Major depressive disorder, single episode, unspecified; K57.30 Diverticulosis of large intestine without perforation or abscess without bleeding; H40.9 Unspecified glaucoma; L80 Vitiligo; R73.09 Other abnormal glucose; H35.30 Unspecified macular degeneration
CPT/HCPCS: 49505; 49560; 49568; 55520; 76942; 99222; 93005; 93010; C1781; J0690; J1100; J1885; J2001; J2405

== ENCOUNTER → 2020-09-09 10:02 | Outpatient (BNVA) | payer MEDICARE, SELFPAY | PROVIDERS: PCP Nurse Practitioner Family; Referring Provider Nurse Practitioner Family; Visit Provider Physical Therapy Assistant | DX: Z48.815 Encounter for surgical aftercare following surgery on the digestive system (principal) ==

== ENCOUNTER 2021-01-27 10:55 | Outpatient (CLI) | payer MEDICARE, SELFPAY ==
--- NOTE | 2021-01-27 10:00 | DI.RAD_ITS ---
Exam(s) XR KNEE RT 2V AP,LAT EXAM: XR KNEE RT 2V AP,LAT INDICATION: ANNUAL F/U R TKA. COMPARISON: CR XR KNEE RT 2V AP,LAT from 01/18/2020 TECHNIQUE: 2D digital imaging was performed. FINDINGS: There has been no change in the total knee prosthesis or appearance of the surrounding bone. DATA REPOSITORY: RADIATION DOSE DELIVERED:
== END 2021-01-27 10:56 | disposition home or self-care (01) ==
LOC: DIORS 10:55
PROVIDERS: PCP Nurse Practitioner Family; Referring Provider Nurse Practitioner Family; Visit Provider Student in an Organized Health Care Education/Training Program
DX: Z96.651 Presence of right artificial knee joint (principal); Z47.1 Aftercare following joint replacement surgery; M25.562 Pain in left knee
CPT/HCPCS: 99213; 73560

== ENCOUNTER 2021-05-18 14:10 | Emergency (ER) | payer MEDICARE, SELFPAY ==
--- NOTE | 2021-05-18 14:14 | W.ED.GENAD ---
Discharge Plan Disposition Patient Disposition: HOME Condition: Stable Discharge Details Clinical Impression: Vomiting and diarrhea Primary Care Provider: Carmella Byers ED Provider: Harinder Platt Home Meds and New Rx's Prescriptions: Continued PreserVision AREDS [id number] tablet 1 tab PO BID 0RF Glucosamine-Chondroitin Complx capsule 2 cap PO DAILY 0RF latanoprost 0.005 % drops 1 drp ophthalmic (eye) DAILY 0RF psyllium husk 3 gram/5.4 gram Powder 1 tbsp PO DAILY 0RF Discharge Instructions Instructions: Acute Nausea and Vomiting (ED), Acute Diarrhea (ED) Additional Instructions: Drink plenty of fluids and get plenty of rest. Take the Zofran as needed and directed for nausea and vomiting. Follow-up with your primary care doctor in 1 week. Return to the emergency department with any worsening or new concerning symptoms. Referrals: Carmella Byers [Primary Care Provider] - Discharge Data Discharge Physician: Josey Allen Medical Decision Making <Josey Allen DO - Last Filed: 05/18/21 20:05> 1500 --81-year-old male with a history of small bowel obstruction, cholecystectomy, colostomy with reversal, hernia repair presents the ED with complaint of vomiting and diarrhea since this morning. He denies any abdominal pain to me. Vitals within normal limits. Patient dry heaving on my exam, will give fluids and Zofran. Screening labs were obtained on arrival and notes a white blood cell count of 14 but the remainder is unremarkable. Patient has been unable to give a urine sample. He denies any abdominal pain to me and his abdomen is soft and nontender throughout including in the groin and testicular region. Suspect most likely viral illness such as gastroenteritis. Do not see indication for CT imaging at this time. Will give GI cocktail, Pepcid and reassess 172 --patient reassessed and he has still been unable to give a urine sample can. He again denies any abdominal pain and feels better. Abdomen soft and nontender. 1800 --nursing attempted to place urinary catheter as patient has still been unable to urinate but they were unable to pass the catheter. Patient states he would like to stand and attempt to urinate. 183 --patient still has been unable to urinate. Will give additional IV fluids and bladder scan. 1929 --bladder scan 79. Patient states he is still not urinate. Nursing was able to pass coud? catheter and 400 cc of urine removed. Will obtain CT to rule out any acute process that may account for urinary retention although suspect patient likely dehydrated. 1999 --Case endorsed to Dr. Platt to follow-up on urinalysis and CT imaging. If CT imaging unremarkable and patient symptoms remain improved, will discharge to home. Medical Records Medical records reviewed: Yes I reviewed the patient's medical records. <Harinder Platt, DO - Last Filed: 05/18/21 22:59> 1500 --81-year-old male with a history of small bowel obstruction, cholecystectomy, colostomy with reversal, hernia repair presents the ED with complaint of vomiting and diarrhea since this morning. He denies any abdominal pain to me. Vitals within normal limits. Patient dry heaving on my exam, will give fluids and Zofran. Screening labs were obtained on arrival and notes a white blood cell count of 14 but the remainder is unremarkable. Patient has been unable to give a urine sample. He denies any abdominal pain to me and his abdomen is soft and nontender throughout including in the groin and testicular region. Suspect most likely viral illness such as gastroenteritis. Do not see indication for CT imaging at this time. Will give GI cocktail, Pepcid and reassess 1725 --patient reassessed and he has still been unable to give a urine sample can. He again denies any abdominal pain and feels better. Abdomen soft and nontender. 1800 --nursing attempted to place urinary catheter as patient has still been unable to urinate but they were unable to pass the catheter. Patient states he would like to stand and attempt to urinate. 1830 --patient still has been unable to urinate. Will give additional IV fluids and bladder scan. 193 --bladder scan 79. Patient states he is still not urinate. Nursing was able to pass coud? catheter and 400 cc of urine removed. Will obtain CT to rule out any acute process that may account for urinary retention although suspect patient likely dehydrated. 1999 --Case endorsed to Dr. Platt to follow-up on urinalysis and CT imaging. If CT imaging unremarkable and patient symptoms remain improved, will discharge to home. 10:55 PM Patient was signed out to me by my colleague Josey Allen. Please refer to her HPI, physical exam, assessment and plan. Time of signout we are pending CT scan and reassessment. CT scan has returned and demonstrates evidence of mild gastroenteritis, no other significant acute abnormality. Repeat exam shows no evidence of an acute surgical abdomen. Patient's vital signs stable, he feels well. He feels good to go home. Laboratory work-up demonstrate mild white count likely secondary to his vomiting and gastroenteritis. Electrolytes stable. Troponin normal, symptoms inconsistent with ACS. Urinalysis negative for infection. This time I do feel the patient is stable for discharge. Discussed red flags which to return. Prior to leaving the patient's family was contacted by Dr. Allen the case with discussed with them. I have extensively reviewed the treatment plan and discharge instructions with the patient and their family. I have addressed all patient concerns at this time. The patient and family was made aware of what symptoms to monitor for that would warrant a return to the emergency department. Discussed the plan with the patient and family, they demonstrate verbal understanding and agreement with our assessment and plan at this time. The documentation in this chart was dictated using [employer] dictation software. Please excuse any dictation errors. FINDINGS: Lungs: Streaky atelectasis at the lung bases. Liver: Small indeterminate hypoattenuating hepatic lesions, incompletely characterized but most likely small cysts and/or hemangiomas. Gallbladder and bile ducts: Prior cholecystectomy. No biliary dilatation. Pancreas: Normal appearing pancreas. Spleen: Normal appearing spleen. Adrenal glands: Normal appearing adrenal glands. Kidneys and ureters: 4.4 cm x 5.2 cm biloculated left renal calculus with thin septal calcification. Multiple bilateral parapelvic renal cysts. No hydronephrosis or ureterectasis. No obstructing ureteral stones. Stomach and bowel: No oral contrast. Stomach partially decompressed. Proximal duodenal diverticula incidentally noted. Fluid throughout the small bowel. No small bowel dilatation to suggest obstruction. Moderate fluid-filled distention of the cecum, ascending colon, and transverse colon. Normal appearing fecal material and fluid in the downstream colon. Diarrhea suggested. Colocolic anastomosis in the mid sigmoid region in keeping with a prior sigmoid resection. No evidence of diverticulitis or colitis. Appendix: Normal diminutive appendix. Intraperitoneal space: No gross ascites or free air. Vasculature: Normal caliber abdominal aorta. Retroaortic left renal vein, anatomic variant. Lymph nodes: No pathologically enlarged mesenteric, retroperitoneal, or pelvic sidewall lymph nodes. Urinary bladder: Urinary bladder partially decompressed but circumferentially thick-walled. Punctate focus of gas in the bladder lumen, nonspecific but commonly seen after recent catheterization. Correlation with recent procedure history recommended. Reproductive: Enlarged prostate gland, 4.0 cm x 4.9 cm maximum axial dimension. Normalappearing seminal vesicles. Bones/joints: No acute fracture seen among the bones of the abdomen or pelvis. Extensive spinal degenerative change with discogenic degeneration, Schmorl's nodes, vacuum disc deformities, anterior osteophytes, posterior osteophytic ridging, and facet arthrosis at multiple levels resulting in multilevel central canal and neural foraminal narrowing. Soft tissues: Old laparotomy incision scar. Small fat containing ventral hernia at the umbilicus. Apparent prior left inguinal herniorrhaphy with a small recurrent fat containing left inguinal hernia. Correlation with surgical history recommended. IMPRESSION: 1. Fluid throughout the small bowel and colon, nonspecific but commonly seen in the setting of diarrhea from any cause, including gastroenteritis. Clinical correlation is recommended. No evidence of diverticulitis or colitis. 2. Multiple bilateral parapelvic renal cysts. No hydronephrosis or ureterectasis. No obstructing ureteral stones. Thank you for allowing us to participate in the care of your patient. Dictated and Authenticated by: Ángel Villela MD 05/18/2021 8:29 PM Eastern Time ([place] & [place]) HPI <Josey Allen, - Last Filed: 05/18/21 20:05> General Mode of arrival: ambulatory. Date/Time Provider Initiated Documentation: 05/18/21 14:13. Limitations to Documentation: no limitations. Information obtained by: patient. HPI Narrative: Patient is an 81-year-old male with a history of arthritis, small bowel obstruction, cholecystectomy, colostomy with reversal, hernia repair who presents for vomiting and diarrhea since this morning. Patient states he was able to eat breakfast and felt fine. He states by mid morning he developed vomiting and diarrhea. He states he mainly has been vomiting clear and bile. He states he has had some loose bowel movements with some watery brown bowel movements. He states he had some upper abdominal discomfort which she describes as nausea but denies any abdominal pain. He denies any fever, urinary symptoms, hematemesis, hematochezia, melena, recent antibiotics, recent travel or recent known sick contacts. He states he has received 2 doses of the Covid vaccine but has not received a booster. He denies any loss of sense of smell or taste, cough, shortness of breath or known exposure to coronavirus. Related Data Home Medications Medication Instructions Recorded Confirmed [id number] C-Mn 2 cap PO DAILY cap 05/06/18 05/18/21 capsule (Glucosamine-Chondroitin Complx) vitamins A,C,S-cqrs-rivyqn 7,160 1 tab PO BID tab 05/06/18 05/18/21 unit-113 mg-100 unit tablet (PreserVision AREDS) psyllium husk 3 gram/5.4 gram oral 1 tbsp PO DAILY 05/20/18 05/18/21 powder latanoprost 0.005 % eye drops 1 drp OPHTHALMIC (EYE) DAILY 07/04/20 05/18/21 Allergies Allergy/AdvReac Type Severity Reaction Status Date / Time morphine Allergy Severe Critical Verified 05/18/21 14:31 per MD H&P Sulfa (Sulfonamide Allergy Contraindic Verified 05/18/21 14:31 Antibiotics) ated oxycodone [From Percocet] AdvReac Contraindic Verified 05/18/21 14:31 ated General TANNER: 3 Review of Systems <Josey Allen DO - Last Filed: 05/18/21 20:05> All systems reviewed & are unremarkable except as noted in HPI and below Constitutional Constitutional: Reports as per HPI, Denies chills, Denies excessive sweating, Denies fatigue and Denies fever(s) Eyes Eyes: Denies blurry vision ENT Ears, Nose, Mouth, and Throat: Denies dizziness, Denies sore throat and Denies throat swelling Cardiovascular Cardiovascular: Denies chest pain and Denies dyspnea Respiratory Respiratory: Denies cough and Denies dyspnea Gastrointestinal Gastrointestinal: Reports abdominal pain, Denies diarrhea and Denies vomiting Genitourinary Genitourinary: Denies hematuria and Denies dysuria Musculoskeletal Musculoskeletal: Denies back pain and Denies numbness Integumentary/Breasts Skin/Breast: Denies lesions and Denies rash Neurologic Neurologic: Denies behavioral changes, Denies confusion, Denies dizziness, Denies localized weakness and Denies numbness Psychiatric Psychiatric: Denies behavioral changes, Denies confusion and Denies depression Endocrine Endocrine: Denies excessive sweating and Denies fatigue Hematologic/Lymphatic Hematologic/Lymphatic: Denies easy bruising and Denies lymphadenopathy Allergic/Immunologic Allergic/Immunologic: Denies throat swelling PFSH <Josey Allen DO - Last Filed: 05/18/21 20:05> All Active Problems (Updated 05/18/21 @ 19:53 by Josey Allen DO) Vomiting and diarrhea (Acute) Diverticular disease of colon (Acute) Inguinal hernia, left (Acute) Abnormal fasting glucose (Acute) Asthma (Acute) Ventral hernia (Acute) Primary osteoarthritis of left knee (Acute) Hammertoe of left foot (Acute) Carpal tunnel syndrome of left wrist (Chronic) History of carpal tunnel surgery of right wrist (Chronic) DOS: 05/26/18 Dr. Blevins History of total right knee replacement (TKR) (Acute 01/18/20) Macular degeneration of both eyes (Chronic) Medical History (Updated 05/18/21 @ 19:53 by Josey Allen DO) Arthritis Color blindness Depressed mood Ectropion Glaucoma History of benign neoplasm of prostate History of small bowel obstruction Vitiligo Surgical History (Updated 09/14/20 @ 14:52 by Brittny Mi RN) H/O arthroscopy of left knee History of carpal tunnel release History of cholecystectomy History of colonoscopy History of colostomy History of colostomy reversal He also had his gallbladder removed during this surgery History of left inguinal hernia repair (~08/30/20) History of total right knee replacement (~12/2019) Hx of right knee surgery Social History Smoking/Tobacco Use Status: Never Smoking risk assessment performed?: Yes Alcohol Intake: never Drug use: Never Substance use type: does not use Current gender identity: male Do you feel safe at home: Yes Do you feel safe in your relationship?: Yes Exam <Josey Allen DO - Last Filed: 05/18/21 20:05> Const General: cooperative and healthy appearing Orientation: alert and awake HENTX Head: normal to inspection Ears: hearing grossly normal bilaterally, external ears normal and TM's normal bilaterally General nose exam: external nose normal Face and sinus: normal facial exam Mouth: oral mucosae normal Teeth and gingiva: dentition normal Throat: posterior oropharynx normal Eyes General: appearance normal, both eyes and all related structures Eyelids: eyelids normal Pupils: PERRL EOM: EOM intact bilaterally Neck Neck: normal visual inspection Lymphatic: no lymphadenopathy noted Chest Chest: normal inspection of the chest Resp Effort & Inspection: normal respiratory effort and able to speak in complete sentences Auscultation: clear to auscultation bilaterally Cardio Rate: regular rate Rhythm: regular rhythm GI Inspection: normal to inspection Palpation: soft, not firm, no guarding, no hepatosplenomegaly, no masses and nontender Auscultation: normal bowel sounds Back/Spine/Pelvis Back: no CVA tenderness Skin General skin exam: no rashes or lesions noted Neuro General: patient alert and patient awake Cognition: normal cognition Speech: speech normal Gait: normal gait Motor: muscle tone normal throughout Sensory Exam: no sensory deficits noted Extrem General: normal to inspection, full ROM and capillary refill normal Psych Appearance: grossly normal Mental Status: mental status grossly normal Speech and Movement: speech and movement normal Affect: normal affect Thought Process: normal Sign Out <Josey Allen DO - Last Filed: 05/18/21 20:05> Sign Out Data: Sign Out Comment: Prompt follow-up on urinalysis and CT result. If patient remains improved and no acute findings on CT scan, can discharge to home with Zofran. Last updated by Josey Allen DO at 05/18/21 20:06
[2021-05-18 14:16] VITALS: BP 129/75; PULSE 63; RESP 18; TEMP 36.9; O2SAT 96
[2021-05-18 14:51] LABS: Abs Immature Grans 0.07 10^3/uL (0.0-0.06); Absolute Eosinophil Count 0.17 10^3/uL (0.0-0.7); Absolute Lymphocyte Count 0.44 10^3/uL (1.2-3.4); Basophils % 0.1; Eosinophils % 1.2; HCT 46.4 % (40.0-50.0); HGB 14.9 g/dL (13.5-17.5); Immature Grans % 0.5; Lymphocytes % 3.1; MCH 30.9 pg (27.0-33.0); MCHC 32.1 % (32.0-36.0); MCV 96.3 fL (80-95); MPV 9.7 fL (8.0-11.0); Monocytes % 4.5; Neutrophils % 90.6; Nucleated RBC 0 %; Platelet Count 232 10^3/uL (130-400); RBC 4.82 10^6/uL (4.36-5.78); RDW 12.6 % (11.8-14.1); RDW-SD 44.9 fL; WBC 14.13 10^3/uL (4.4-10.8)
[2021-05-18 14:55] LABS: ALT 24 U/L (16-63); AST 18 U/L (15-37); Albumin 3.9 g/dL (3.4-5.0); Alkaline Phosphatase 70 U/L (46-116); Anion Gap 8.5 mmol/L (3-11); BUN 27 mg/dL (7-18); Bilirubin, Total 0.8 mg/dL (0.2-1.0); CO2 26.5 mmol/L (21.0-32.0); CREATININE 1.1 mg/dL (0.70-1.30); Calcium 8.9 mg/dL (8.5-10.1); Chloride 107 mmol/L (98-107); Glucose 127 mg/dL (74-106); Lipase 74 U/L (73-393); Magnesium 2.3 mg/dL (1.8-2.4); Potassium 4.2 mmol/L (3.5-5.1); Sodium 142 mmol/L (136-145); Total Protein 7.7 g/dL (6.4-8.2); Troponin I < 50 ng/L (<or=60)
[2021-05-18 15:04] LABS: Absolute Basophil Count 0.01 10^3/uL (0.0-0.2); Absolute Monocyte Count 0.64 10^3/uL (0.1-0.8)
[2021-05-18] MEDS: Normal Saline 500 ML IV ×3 (15:18→19:30)
[2021-05-18] MEDS: Ondansetron 4 MG/2 ML VIAL IVP (15:18)
[2021-05-18] MEDS: Famotidine 20 MG/2 ML VIAL IVP (15:55)
[2021-05-18] MEDS: Lidocaine 2% Jelly 6 ML SYR (17:40)
--- NOTE | 2021-05-18 19:45 | DI.CT_ITS ---
Exam(s) CT ABDOMEN PELVIS W EXAM: CT ABDOMEN PELVIS W CLINICAL HISTORY: vomiting and diarrhea, decreased urine output. TECHNIQUE: Imaging Protocol: Axial computed tomography images with coronal and sagittal reformatted images were created and reviewed CONTRAST MATERIAL: Intravenous: Omnipaque 100cc Oral: None COMPARISON: CT CT ABDOMEN PELVIS W from 07/11/2020 FINDINGS: VISUALIZED LUNG BASES: Mild increased markings in the left lung base are unchanged from June 2020 CT scan. ABDOMEN: There is no ascites. LIVER: There few small benign cysts in the liver again noted, unchanged. GALLBLADDER/BILIARY: The gallbladder is again noted to be surgically absent. CBD is not dilated. PANCREAS: No evidence of pancreatic mass nor dilatation of the pancreatic duct. SPLEEN: Spleen is not enlarged. No obvious intrasplenic lesions. Splenic and portal veins are paten t. ADRENALS: There are no significant adrenal masses. KIDNEYS:Prominent paraspinal vague cysts are again noted in both kidneys, again noted be more promine nt on the left side and on the left side there is also a partially complex larger cortical cyst again noted which measures 5.5 x 4.5 cm and which again exhibits a thin internal septation no calculi. No solid renal masses no true hydronephrosis nor hydroureter. The urinary bladder is not distended. I t contains a single tiny gas bubble. ABDOMINAL AORTA: Abdominal aorta is not significantly enlarged. Retro aortic left renal vein noted LYMPH NODES:There is no retroperitoneal nor paraaortic adenopathy. ABDOMINAL WALL: There is a fat containing left inguinal hernia. There is a 2 by 2 cm density at the level of the internal left inguinal ring. This may be related to hernia repair at this level. GI: All of the small bowel loops are fluid-filled but not significantly dilated. There is also fluid throughout the right-side of the colon. There is a suggestion of partial sigmoid resection. PELVIS: GI: No evidence of appendicitis.No evidence of sigmoid diverticulitis. LYMPH NODES: There is no intrapelvic nor inguinal adenopathy. REPRODUCTIVE: Mildly enlarged prostate. Seminal vesicles unremarkable. URINARY BLADDER: Uniform wall thickening. Solitary air bubble noted within the anterior bladder lume n. OSSEOUS: No significant osseous lesions. Chronic advanced multilevel degenerative disc disease. IMPRESSION: 1. There is fluid throughout the small bowel and right-side of the colon, probably representing gastr oenteritis. There is no evidence of bowel obstruction. 2. There is suggestion partial sigmoid resection. No abscess at this level. No diverticulosis. 3. Left inguinal hernia evidence of probable procedure at this level given that there is a new 2 x 2 cm density at the level of the left inguinal ring. 4. There are multiple bilateral parapelvic cysts again noted. No hydronephrosis nor hydroureter. No calculi. Solitary gas bubble noted within the urinary bladder. Mild prostate enlargement. RADIATION DOSE DELIVERED: 858.75mGy.cm Total DLP DATA REPOSITORY: All CT scans at this facility are submitted to the National Radiology Data Registry (NRDR) Dose Index Registry (DIR) with the [employer] ([employer]). RADIATION OPTIMIZATION: All CT scans at this facility use at least one of these dose optimization te chniques: automated exposure control; mA and/or kV adjustment per patient size (includes targeted exa ms where dose is matched to clinical indication); or iterative reconstruction.
[2021-05-18 19:49] LABS: C Diff PCR Negative (Negative)
[2021-05-18 19:50] LABS: Bilirubin Negative (Negative); Blood Moderate (Negative); Clarity Clear (Clear); Glucose Negative (Negative); Ketones Negative (Negative); Leukocyte Esterase Negative (Negative); Nitrite Negative (Negative); Specific Gravity >= 1.030 (1.005-1.025); Urobilinogen 0.2 EU/dL (Up TO 0.2); pH 5.5 (5-8)
[2021-05-18] MEDS: Omnipaque 350 MG/ML 100 ML BTL IJ (20:03)
[2021-05-18] MEDS: Normal Saline Flush 10 ML SYR IVP (20:04)
[2021-05-18 20:08] LABS: Bacteria Negative HPF (Negative); C & S Indicated? No; Casts Negative LPF (Negative); Crystals Negative HPF (Negative); Epithelial Cells Negative HPF (Negative); Mucus Negative (Negative); Other Cells Negative (Negative); WBC Negative HPF (0-5)
--- NOTE | 2021-05-18 20:29 | DI.VRAD_ITS ---
PROCEDURE INFORMATION: Exam: CT Abdomen And Pelvis With Contrast Exam date and time: 05/18/2021 7:50 PM Age: 81 years old Clinical indication: Other: Vomiting/ diarrhea, decreased urine output TECHNIQUE: Imaging protocol: Computed tomography of the abdomen and pelvis with contrast. Radiation optimization: All CT scans at this facility use at least one of these dose optimization techniques: automated exposure control; mA and/or kV adjustment per patient size (includes targeted exams where dose is matched to clinical indication); or iterative reconstruction. Contrast material: OMNIPAQUE 350; Contrast volume: 100 ml; Contrast route: INTRAVENOUS (IV); COMPARISON: CT ABDOMEN PELVIS W 07/11/2020 10:09 AM FINDINGS: Lungs: Streaky atelectasis at the lung bases. Liver: Small indeterminate hypoattenuating hepatic lesions, incompletely characterized but most likely small cysts and/or hemangiomas. Gallbladder and bile ducts: Prior cholecystectomy. No biliary dilatation. Pancreas: Normal appearing pancreas. Spleen: Normal appearing spleen. Adrenal glands: Normal appearing adrenal glands. Kidneys and ureters: 4.4 cm x 5.2 cm biloculated left renal calculus with thin septal calcification. Multiple bilateral parapelvic renal cysts. No hydronephrosis or ureterectasis. No obstructing ureteral stones. Stomach and bowel: No oral contrast. Stomach partially decompressed. Proximal duodenal diverticula incidentally noted. Fluid throughout the small bowel. No small bowel dilatation to suggest obstruction. Moderate fluid-filled distention of the cecum, ascending colon, and transverse colon. Normal appearing fecal material and fluid in the downstream colon. Diarrhea suggested. Colocolic anastomosis in the mid sigmoid region in keeping with a prior sigmoid resection. No evidence of diverticulitis or colitis. Appendix: Normal diminutive appendix. Intraperitoneal space: No gross ascites or free air. Vasculature: Normal caliber abdominal aorta. Retroaortic left renal vein, anatomic variant. Lymph nodes: No pathologically enlarged mesenteric, retroperitoneal, or pelvic sidewall lymph nodes. Urinary bladder: Urinary bladder partially decompressed but circumferentially thick-walled. Punctate focus of gas in the bladder lumen, nonspecific but commonly seen after recent catheterization. Correlation with recent procedure history recommended. Reproductive: Enlarged prostate gland, 4.0 cm x 4.9 cm maximum axial dimension. Normal-appearing seminal vesicles. Bones/joints: No acute fracture seen among the bones of the abdomen or pelvis. Extensive spinal degenerative change with discogenic degeneration, Schmorl's nodes, vacuum disc deformities, anterior osteophytes, posterior osteophytic ridging, and facet arthrosis at multiple levels resulting in multilevel central canal and neural foraminal narrowing. Soft tissues: Old laparotomy incision scar. Small fat containing ventral hernia at the umbilicus. Apparent prior left inguinal herniorrhaphy with a small recurrent fat containing left inguinal hernia. Correlation with surgical history recommended. IMPRESSION: 1. Fluid throughout the small bowel and colon, nonspecific but commonly seen in the setting of diarrhea from any cause, including gastroenteritis. Clinical correlation is recommended. No evidence of diverticulitis or colitis. 2. Multiple bilateral parapelvic renal cysts. No hydronephrosis or ureterectasis. No obstructing ureteral stones. Dictated and Authenticated by: Ángel Villela MD. Ordering:CICI Dowling MD
[2021-05-18] MEDS: Ondansetron O.D.T. 4 MG TABEF, 3 TABS/BTL PO (21:17)
== END 2021-05-18 21:10 | disposition home or self-care (01) ==
PROVIDERS: Physician Assistant; Emergency Provider Student in an Organized Health Care Education/Training Program; PCP Nurse Practitioner Family
DX: R11.10 Vomiting, unspecified (principal); R19.7 Diarrhea, unspecified; R10.9 Unspecified abdominal pain; R34 Anuria and oliguria
CPT/HCPCS: 36415; 51701; 80053; 83690; 87493; 87505; 96361; 96374; 96375; 99285; 74177; 81003; 81015; 83735; 84484; 85025; 99284; J2405; J3490

== ENCOUNTER 2021-05-26 13:54 | Outpatient (REF) | payer MEDICARE, SELFPAY ==
[2021-05-26 17:03] LABS: TSH (W/Ref FT4) 6.28 uIU/mL (0.36-3.74)
[2021-05-26 17:20] LABS: FREE T4 0.72 ng/dL (0.76-1.46)
== END 2021-05-26 13:55 | disposition home or self-care (01) ==
LOC: NCHCN 13:54
PROVIDERS: PCP Nurse Practitioner Family; Visit Provider Nurse Practitioner Family
DX: R94.6 Abnormal results of thyroid function studies (principal)
CPT/HCPCS: 84439; 84443

== ENCOUNTER 2021-07-27 22:21 | Outpatient (REF) | payer MEDICARE, SELFPAY ==
[2021-07-27 15:22] LABS: FREE T4 0.86 ng/dL (0.76-1.46)
== END 2021-07-27 22:22 | disposition home or self-care (01) ==
LOC: NCHCN 22:21
PROVIDERS: PCP Nurse Practitioner Family; Visit Provider Nurse Practitioner Family
DX: E03.9 Hypothyroidism, unspecified (principal)
CPT/HCPCS: 84439; 84443

== ENCOUNTER 2022-10-04 15:13 | Outpatient (REF) | payer MEDICARE, SELFPAY ==
[2022-10-04 21:15] LABS: HCT 40.8 % (40.0-50.0); HGB 13.6 g/dL (13.5-17.5); MCH 30.8 pg (27.0-33.0); MCHC 33.3 % (32.0-36.0); MCV 93 fL (80-95); MPV 9.6 fL (8.0-11.0); Platelet Count 227 10^3/uL (130-400); RBC 4.41 10^6/uL (4.36-5.78); RDW 12.8 % (11.8-14.1); RDW-SD 43.8 fL; WBC 5.91 10^3/uL (4.4-10.8)
[2022-10-04 21:32] LABS: ALT 24 U/L (16-63); AST 24 U/L (15-37); Albumin 3.6 g/dL (3.4-5.0); Alkaline Phosphatase 63 U/L (46-116); Anion Gap 10.9 mmol/L (3-11); BUN 21 mg/dL (7-18); Bilirubin, Total 0.4 mg/dL (0.2-1.0); CO2 24.1 mmol/L (21.0-32.0); CREATININE 1.1 mg/dL (0.70-1.30); Calcium 8.7 mg/dL (8.5-10.1); Chloride 108 mmol/L (98-107); Estimated GFR 67.02 (mL/min/1.73m2); Glucose 111 mg/dL (74-106); Potassium 3.9 mmol/L (3.5-5.1); Sodium 143 mmol/L (136-145); TSH (W/Ref FT4) 3.24 uIU/mL (0.36-3.74); Total Protein 6.6 g/dL (6.4-8.2)
== END 2022-10-04 15:14 | disposition home or self-care (01) ==
LOC: NCHCN 15:13
PROVIDERS: PCP Nurse Practitioner Family; Visit Provider Nurse Practitioner Family
DX: E03.9 Hypothyroidism, unspecified (principal); Z00.00 Encounter for general adult medical examination without abnormal findings
CPT/HCPCS: 80053; 85027; 84443

== ENCOUNTER 2023-02-08 10:41 | Outpatient (CLI) | payer MEDICARE, SELFPAY ==
--- NOTE | 2023-02-08 10:00 | DI.RAD_ITS ---
Exam(s) XR HIP LT COMPLETE AP PELVIS EXAM: XR HIP LT COMPLETE AP PELVIS CLINICAL HISTORY: LEFT HIP PAIN. TECHNIQUE: 2D digital imaging was performed. COMPARISON: CT CT ABDOMEN PELVIS W from 05/18/2021 FINDINGS: Two views. No evidence of pelvic nor hip fracture. There are advanced degenerative changes in the left hip joint with advanced joint space narrowing and multiple degenerative subarticular cysts seen on both sides the joint. Also marginal osteophytes at the femoral head-neck junction, the largest located laterally. Opposite-right hip appears unremarkable. IMPRESSION: Advanced osteoarthritic degenerative changes in the left hip, as seen on prior CT scan of 05/18/2021 DATA REPOSITORY: RADIATION DOSE DELIVERED:
--- NOTE | 2023-02-08 10:00 | DI.RAD_ITS ---
Exam(s) XR KNEE RT 3V AP,LAT,JOSHUA EXAM: XR KNEE RT 3V AP,LAT,JOSHUA CLINICAL HISTORY: RIGHT KNEE PAIN. TECHNIQUE: 2D digital imaging was performed. COMPARISON: CR XR KNEE RT 2V AP,LAT from 01/27/2021 CR XR KNEE LT 3V AP,LAT,JOSHUA from 02/08/2023 FINDINGS: 3 views Stable position alignment of the components of the knee prosthesis. No fractures nor loosening evide nt. Vascular calcification again evident IMPRESSION: Stable satisfactory appearance. DATA REPOSITORY: RADIATION DOSE DELIVERED:
--- NOTE | 2023-02-08 10:00 | DI.RAD_ITS ---
Exam(s) XR KNEE LT 3V AP,LAT,JOSHUA EXAM: XR KNEE LT 3V AP,LAT,JOSHUA CLINICAL HISTORY: OA LEFT KNEE. TECHNIQUE: 2D digital imaging was performed. COMPARISON: CR XR knee RT 2V AP,lat from 05/06/2018 CR XR knee LT 2V AP,lat from 05/06/2018 FINDINGS: 3 views No evidence of fracture nor obvious joint effusion. On the weight-bearing view there is advanced narrowing of the lateral compartment noted with an eleme nt of valgus deformity. Medial compartment normal height. IMPRESSION: Compared to 2019 there has been progression of degenerative narrowing of the lateral compartment, bes t seen on the weight-bearing view. DATA REPOSITORY: RADIATION DOSE DELIVERED:
== END 2023-02-08 10:42 | disposition home or self-care (01) ==
LOC: DIORS 10:41
PROVIDERS: PCP Nurse Practitioner Family; Referring Provider Nurse Practitioner Family; Visit Provider Student in an Organized Health Care Education/Training Program
DX: Z96.651 Presence of right artificial knee joint (principal); M17.12 Unilateral primary osteoarthritis, left knee; M16.12 Unilateral primary osteoarthritis, left hip
CPT/HCPCS: 73562; 99215; 73502

== ENCOUNTER → 2023-03-11 12:50 | Outpatient (BNVA) | payer MEDICARE, SELFPAY | PROVIDERS: PCP Nurse Practitioner Family; Referring Provider Nurse Practitioner Family; Visit Provider Student in an Organized Health Care Education/Training Program | DX: M16.12 Unilateral primary osteoarthritis, left hip (principal); M17.11 Unilateral primary osteoarthritis, right knee; Z96.651 Presence of right artificial knee joint | CPT/HCPCS: 99213 ==

== ENCOUNTER 2023-04-12 01:15 | Outpatient (CLI) | payer MEDICARE, SELFPAY ==
[2023-04-12 12:10] LABS: HCT 40.5 % (40.0-50.0); HGB 13.9 g/dL (13.5-17.5); MCH 31.6 pg (27.0-33.0); MCHC 34.3 % (32.0-36.0); MCV 92 fL (80-95); MPV 9.1 fL (8.0-11.0); Platelet Count 229 10^3/uL (130-400); RDW 12.7 % (11.8-14.1); RDW-SD 43.3 fL; WBC 6.06 10^3/uL (4.4-10.8)
[2023-04-12 12:31] LABS: Anion Gap 7.5 mmol/L (3-11); BUN 19 mg/dL (7-18); CO2 29.5 mmol/L (21.0-32.0); Calcium 9.6 mg/dL (8.5-10.1); Chloride 106 mmol/L (98-107); Estimated GFR 74.68 (mL/min/1.73m2); Glucose 93 mg/dL (74-106); Potassium 4.5 mmol/L (3.5-5.1); Sodium 143 mmol/L (136-145)
== END 2023-04-12 01:16 | disposition home or self-care (01) ==
LOC: LBO 01:15
PROVIDERS: PCP Nurse Practitioner Family; Visit Provider Student in an Organized Health Care Education/Training Program
DX: M16.12 Unilateral primary osteoarthritis, left hip (principal); Z01.818 Encounter for other preprocedural examination
CPT/HCPCS: 36415; 80048; 85027; 72170

== ENCOUNTER 2023-04-12 10:55 | Outpatient (CLI) | payer MEDICARE, SELFPAY ==
--- NOTE | 2023-04-12 08:45 | DI.RAD_ITS ---
Exam(s) XR PELVIS AP EXAM: XR PELVIS AP CLINICAL HISTORY: PRE OP L ANDREA. TECHNIQUE: 2D digital imaging was performed. Single AP view. COMPARISON: CR XR HIP LT COMPLETE AP PELVIS from 02/08/2023 FINDINGS: BONES: No acute fracture is present. No bony destructive lesion is seen. JOINTS: No dislocation present. Again noted is severe narrowing of the left hip joint space, with a b one-on-bone appearance. There is prominent periarticular spurring, sclerosis as well as subchondral cyst formation on both sides of the joint. The right hip joint space is maintained shows mild acetab ular spurring. The SI joints show mild degenerative changes. SOFT TISSUE: Vascular calcifications. IMPRESSION: Severe degenerative changes of the left hip. DATA REPOSITORY: RADIATION DOSE DELIVERED:
== END 2023-04-12 10:56 | disposition home or self-care (01) ==
LOC: DIORS 10:55
PROVIDERS: PCP Nurse Practitioner Family; Referring Provider Nurse Practitioner Family; Visit Provider Physician Assistant
DX: M16.12 Unilateral primary osteoarthritis, left hip (principal); Z01.818 Encounter for other preprocedural examination
CPT/HCPCS: 72170

== ENCOUNTER 2023-04-16 06:01 | Day surgery (SDC) | payer MEDICARE, SELFPAY ==
[2023-04-16] VITALS (9 sets, daily range): BP systolic 90–178; BP diastolic 44–91; PULSE 51–61; RESP 13–16; TEMP 36.3–36.6; O2SAT 94–98; BMI 29.2
[2023-04-16] MEDS: Celecoxib 200 MG CAP 400 MG PO (06:48)
[2023-04-16] MEDS: Acetaminophen 500 MG TAB 1000 MG PO (06:48)
[2023-04-16] MEDS: Lactated Ringers 1,000 ML 80 ML IV (06:49)
--- NOTE | 2023-04-16 07:00 | DI.RAD_ITS ---
Exam(s) XR HIP LT IN OR EXAM: XR HIP LT IN OR CLINICAL HISTORY: ARTHRITIS LEFT HIP TECHNIQUE: 2D and realtime digital imaging was performed. CONTRAST MATERIAL: Refer to procedure report. COMPARISON: CR XR PELVIS AP from 04/12/2023 FINDINGS: Fluoroscopy was provided for Dr. Hamilton during the performance of a left total hip replacement. P lease refer to the procedure report for complete details. Ka,r=6.43 mGy IMPRESSION: RADIATION DOSE DELIVERED:
--- NOTE | 2023-04-16 07:09 | W.ANESPRE ---
General Info Date of Service Date Performed: 04/16/23 Height: 6 ft Weight: 97.8 kg Body Mass Index (BMI): 29.2 Surgical Procedure: Operation Date: 04/16/23 07:50 Proposed Procedure Side Surgeon p Hip Total Hip Anterior, ACTIS Left Gume Hamilton MD Meds Allergies and Home Medications Allergies Allergy/AdvReac Type Severity Reaction Status Date / Time morphine Allergy Severe Critical Verified 04/16/23 06:23 per MD H&P Sulfa (Sulfonamide Allergy Contraindic Verified 04/16/23 06:23 Antibiotics) ated oxycodone [From Percocet] AdvReac Contraindic Verified 04/16/23 06:23 ated Home Medication Medication Instructions Recorded [id number] C-Mn 2 cap PO DAILY 05/06/18 capsule (Glucosamine-Chondroitin Complex capsule) vitamins A,C,O-duuz-hdityu 2,148 1 tab PO BID 05/06/18 mcg-113 mg-45 mg-17.4 mg tablet (PreserVision AREDS) psyllium husk 3 gram/5.4 gram oral 1 tbsp PO DAILY 05/20/18 powder latanoprost 0.005 % eye drops 1 drp ophthalmic (eye) DAILY 07/04/20 levothyroxine 25 mcg capsule 25 mcg PO DAILY 02/08/23 acetaminophen 500 mg tablet 1,000 mg (2 x 500 mg) PO Q8H PRN 04/16/23 pain #90 tabs aspirin 81 mg tablet,delayed 81 mg PO BID 30 days #60 tabs 04/16/23 release dexamethasone 4 mg tablet 4 mg PO DAILY #2 tabs 04/16/23 docusate sodium 100 mg capsule 100 mg PO BID #30 caps 04/16/23 (Colace) meloxicam 15 mg tablet 15 mg PO DAILY #30 tabs 04/16/23 pantoprazole 40 mg tablet,delayed 40 mg PO DAILY 14 days #14 tabs 04/16/23 release tramadol 50 mg tablet 50 mg PO Q6H PRN severe 04/16/23 postoperative pain #12 tabs Current Visit Medications: Current Medications Generic Name Dose Route Start Last Admin Trade Name Freq PRN Reason Stop Dose Admin Acetaminophen 1,000 mg 04/16/23 06:00 04/16/23 06:48 Acetaminophen 500 Mg Tab PO 04/16/23 16:00 1,000 mg PREOP HELENA Administration Celecoxib 400 mg 04/16/23 06:00 04/16/23 06:48 Celecoxib 200 Mg Cap PO 04/16/23 16:00 400 mg PREOP HELENA Administration Tranexamic Acid 1,000 mg/ 60 mls @ 360 mls/hr 04/16/23 06:00 Sodium Chloride IV 04/16/23 16:00 PREOP HELENA Ringer's Solution 1,000 mls @ 80 mls/hr 04/16/23 06:00 04/16/23 06:49 IV 04/16/23 23:59 80 mls/hr INFUSION HELENA Administration Cefazolin Sodium/Dextrose 2 gm in 50 mls @ 100 mls/hr 04/16/23 06:00 Ancef Duplex IVPB 04/16/23 23:59 PREOP HELENA IV Miscellaneous Supplies 1 each 04/16/23 06:00 Iv Access IV 04/16/23 23:59 DIRECTED HELENA Sodium Chloride 0 ml 04/16/23 06:00 Normal Saline Flush 10 Ml Syr IV 04/16/23 23:59 PRN PRN Sodium Chloride 0 ml 04/16/23 06:00 Normal Saline 10 Ml Vial IJ 04/16/23 23:59 DIRECTED PRN Sterile Water 0 ml 04/16/23 06:00 Water,Injection,Sterile 10 Ml Vial IJ 04/16/23 23:59 DIRECTED PRN PFSH Active Problems Active Problems: Problem Status Onset Code Arthritis of left hip M16.12 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 Inguinal hernia, left K40.90 Abnormal fasting glucose R73.01 Asthma J45.909 Ventral hernia K43.9 Primary osteoarthritis of left knee M17.12 Hammertoe of left foot M20.42 Carpal tunnel syndrome of left wrist G56.02 Carpal tunnel syndrome of right wrist G56.01 History of carpal tunnel surgery of right wrist Z98.890 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 Macular degeneration of both eyes H35.30 Medical History Medical History Depressed mood Vitiligo Ectropion Arthritis Color blindness History of benign neoplasm of prostate Glaucoma History of small bowel obstruction Surgical History Surgical History History of left inguinal hernia repair (~08/30/20) History of total right knee replacement (~12/2019) Hx of right knee surgery History of colonoscopy History of cholecystectomy History of carpal tunnel release H/O arthroscopy of left knee History of colostomy History of colostomy reversal He also had his gallbladder removed during this surgery Tobacco Smoking/Tobacco Use Status: Never Alcohol Alcohol Intake: never Substance Use Substance use: Never Substance use type: does not use Vital Signs and Lab Results Vital Signs Most Recent Vital Signs in EMR: Most Recent Vital Signs Temp Pulse Resp BP Pulse Ox 36.5 C 54 L 16 136/75 96 04/16/23 06:30 04/16/23 06:30 04/16/23 06:30 04/16/23 06:30 04/16/23 06:30 Lab Results Blood Type / Crossmatch: No Data to Display Complete Blood Count: White Blood Count 6.06 10^3/uL (4.4-10.8) 04/12/23 12:04 Red Blood Count 4.40 10^6/uL (4.36-5.78) 04/12/23 12:04 Hemoglobin 13.9 g/dL (13.5-17.5) 04/12/23 12:04 Hematocrit 40.5 % (40.0-50.0) 04/12/23 12:04 Platelet Count 229 10^3/uL (130-400) 04/12/23 12:04 Complete Metabolic Panel: Sodium 143 mmol/L (136-145) 04/12/23 12:04 Potassium 4.5 mmol/L (3.5-5.1) 04/12/23 12:04 Chloride 106 mmol/L (98-107) 04/12/23 12:04 Carbon Dioxide 29.5 mmol/L (21.0-32.0) 04/12/23 12:04 BUN 19 mg/dL (7-18) H 04/12/23 12:04 Creatinine 1.0 mg/dL (0.70-1.30) 04/12/23 12:04 Est GFR (CKD-EPI 2020) 74.68 (mL/min/1.73m2) 04/12/23 12:04 Calcium 9.6 mg/dL (8.5-10.1) 04/12/23 12:04 Glucose 93 mg/dL (74-106) 04/12/23 12:04 Liver Function Panel: No Data to Display Coagulation Panel: No Data to Display Cardiac Panel: No Data to Display Arterial Blood Gas: No Data to Display Venous Blood Gas: No Data to Display Pancreas Panel: No Data to Display Thyroid Panel: No Data to Display Infectious Disease: No Data to Display Blood Cultures: No Data to Display Toxicology Panel: No Data to Display Imaging and Studies Imaging and Studies Study information below may be from another EMR and interpreted by another provider. Please see original notes in EMR for more complete details. Echocardiogram Summary: 08/12: LVEF 62%, no hemodynamically significant valvular lesions. Anesthesia Assessment and Plan Anesthesia History Personal History: No History of Anesthesia Complications Family History: No Family History of Anesthesia Complications Exercise Tolerance Exercise Tolerance: Metabolic Equivalents>4 Pertinent Negatives Pertinent Negatives: No Symptoms of GERD, No Major Cardiovascular Symptoms or Complaints and No Major Pulmonary Symptoms or Complaints Cardiac & Pulmonary Exam Cardiac Exam: Normal S1/S2 Heart Sounds Pulmonary Exam: Clear Bilateral Breath Sounds Implantable Cardiac Device Does patient have a Pacemaker or an ICD?: No Airway Exam Known Difficult Airway: No Mallampati Class: 2 Mouth Opening: Normal (> 3cm) Thyromental Distance: Greater than 3 cm Neck Range of Motion: Full ROM Neck Circumference: Normal Teeth Condition: Normal Dentition and Removable Dentures/Plates Upper ASA Classification ASA Score: ASA 2 Emergency Case?: No NPO Status NPO Status: NPO Clears >2 hours, Solids >8 hours Anesthesia Plan Resuscitation Status: Full Code Anesthesia Technique: Spinal Anesthesia Airway Planned: Natural Airway Monitors Used: Standard Monitors
--- NOTE | 2023-04-16 07:21 | W.PM.DSUDISC ---
Date of service: 04/16/23 Time of Service: 07:25 Discharge Plan Disposition Patient Disposition: Home Condition: Good Discharge Details Reason For Visit: Left hip DJD Attending Provider: Gume Hamilton Primary Care Provider: Carmella Byers Home Meds and New Rx's Prescriptions: New meloxicam 15 mg tablet 15 mg PO DAILY Qty: 30 1RF Rx Instructions: Take one tablet daily for pain and inflammation aspirin 81 mg tablet,delayed release (DR/EC) 81 mg PO BID 30 Days Qty: 60 0RF tramadol 50 mg tablet 50 mg PO Q6H PRN (Reason: severe postoperative pain) Qty: 12 0RF Rx Instructions: Take one tablet up to every 6 hours as needed for severe pain acetaminophen 500 mg tablet 1,000 mg PO Q8H PRN Qty: 90 0RF Rx Instructions: Take two tablets up to every 8 hours as needed for pain dexamethasone 4 mg tablet 4 mg PO DAILY Qty: 2 0RF Rx Instructions: Take one tablet once daily for two days docusate sodium [Colace] 100 mg capsule 100 mg PO BID Qty: 30 0RF pantoprazole 40 mg tablet,delayed release (DR/EC) 40 mg PO DAILY 14 Days Qty: 14 0RF Continued PreserVision AREDS 7,160-113-100 [id number] tablet 1 tab PO BID Glucosamine-Chondroitin Complx capsule 2 cap PO DAILY latanoprost 0.005 % drops 1 drp ophthalmic (eye) DAILY levothyroxine 25 mcg capsule 25 mcg PO DAILY psyllium husk 3 gram/5.4 gram Powder 1 tbsp PO DAILY Discharge Instructions Additional Instructions: Total Hip Discharge Instructions Activity: The most important activity is to walk. You should try to take short walks a few times a day. You have no restrictions on movement or positioning, but do not try to force what you do. You will find some stiffness and weakness with hip flexion (lifting your knee). Do not try to strengthen this too early, continue to practice walking and stairs and this will come. - Outpatient physical therapy can be helpful to help return you to a normal gait and improve your flexibility and strength. This can start around 2 weeks. For some patients, it?s not necessary. Usually this is determined at the time of discharge or at the first post-operative visit. - You should wear the MIGDALIA hose on both legs for 2 weeks. Dressing: Keep the surgical dressing in place for at least one week. After the first week it may be removed and replace with light gauze and tape or nothing. It may get wet after 3 days but avoid soaking the dressing. If it gets wet, just lightly pat dry. It is important to always keep some gauze between skin folds, especially when you are sitting. Spend some time with the wound exposed when you are lying flat as the incision does wrinkle onto itself. Medications: - You should take Tylenol and an anti-inflammatory Meloxicam as your primary pain control medications. If the Meloxicam is too expensive or not covered, please call the office for another alternative (Advil/Ibuprofen or Naproxen/Aleve). - You have been prescribed a stronger pain medication Tramadol for breakthrough pain, take as needed as prescribed. - You have also been prescribed a stomach acid reduction agent Pantoprozole to help reduce stomach acid and reflux. - You have also been prescribed Decadron to help with post-operative nausea and pain. You will take this for two days starting tomorrow. - You will be taking Aspirin 81mg twice a day for DVT prevention unless instructed otherwise. - If you have constipation you should take Colace (which has been prescribed) or Miralax (which is available [id number]). It takes most people 3-4 days to have a bowel movement. Follow-up: 2 weeks If you have any acute concerns or questions, please do not hesitate to contact the office at [phone]. You may contact Dr. Hamilton with any questions after hours through the hospital at [phone] or on his cell phone at [phone]. Referrals: Gume Hamilton MD [ [facility]FF PHYSICIAN] - Equipment/Supplies: Walker Activity:: Activity as Tolerated Remove Dressings/Wound Care:: Do Not Remove Shower/Bathe:: 72 hours and Cover Diet:: As Tolerated Discharge Orders Discharge Orders: Discharge Order (Routine); Ordered 04/16/23 Ordered By: Verena Casiano DS: Diagnosis Discharge Diagnosis (1) Arthritis of left hip: Status: Chronic
[2023-04-16] MEDS: ceFAZolin 2 GM/50 ML BAG IVPB (07:38)
--- NOTE | 2023-04-16 09:04 | W.PM.OP ---
Date of service: 04/16/23 Time of Service: 08:00 Operative Note Operative Note DATE OF PROCEDURE: 04/16/23 PRE-OP DIAGNOSIS: Left Hip Osteoarthritis POST-OP DIAGNOSIS: same PROCEDURE: Left Anterior Total Hip Arthroplasty with Intraoperative Navigation SURGEON: Gume Hamilton OPTICAL LATHE OPERATOR: Verena Casiano ANESTHESIA TYPE: Spinal Refer to Anesthesia Record ESTIMATED BLOOD LOSS: 150 PATHOLOGY: none sent TOURNIQUET TIME: 0 COMPLICATIONS: None Patient was transported to: PACU Patient's condition: stable Implants: 1. Depuy [place] Acetabular Component, 62mm 2. Depuy Acetabular Liner, 51x96oe 3. Depuy Actis Standard Collared Femoral Stem, Size 6 4. Depuy Altrx Ceramic Femoral Head, Size 36+8.5mm Indications: I have seen Soy in clinic for symptoms of hip arthritis, confirmed with radiographic findings. He has exhausted nonoperative methods and was having significant limitations in daily function and desired better function and less pain. I discussed the technical details of a hip replacement. I explained the risks of the procedure to include, but not limited to, bleeding, infection, pain, stiffness, fracture, damage to nerves and vessels, damage to muscles and tendons, loosening, instability, leg length inequality, need for repeat procedure, blood clot and cardiopulmonary demise. Despite these risks, Soy elected to proceed. Findings: There was significant signs of arthritis throughout the hip with large osteophytes. Procedure Description: Soy was greeted in the preoperative holding area where the correct side was identified and marked. The consent was reviewed with the patient and signed. The history and physical was updated. All questions were answered. He was taken back to the operating room. A spinal anesthestic was then administered. The feet were wrapped with cast padding and Coban and then placed into the boot liners and then into the boots. Care was taken to protect the skin and make sure the heels were fully down and the boots were stable. The patient was then positioned onto the HANA table. Both legs were held in a neutral position. SCDs were applied. The patient was then slid down onto a peroneal post. Prophylactic antibiotics in the form of Cefazolin were administered. 1g of Tranxemic Acid was given intravenously within 30 minutes of incision. The left leg was then prepped with Chloraprep and draped in a standard fashion. A second prep with Chloraprep was performed prior to placement of a shower-curtain type drape with Iodine impregnated skin protection. A timeout to confirm correct identity, side and site, procedure, allergies, anesthesia, and medical concerns was performed. An obliquely oriented incision was made starting lateral to the ASIS and running distal over the Tensor Fascia Rosa (TFL) muscle belly toward the fibular head, approximately 10cm. The skin and soft tissue was dissected sharply, through Florian?s fascia, and to the fascia of the TFL. With the fascia and superior border of the IT band identified, the fascia was incised with a new knife just above any perforators from the IT band. The TFL muscle belly was bluntly dissected away from the fascia and moved laterally. The fat between TFL and rectus was identified to ensure the dissection was not within the TFL. Blunt dissection created space between abductors and the capsule and retractor was placed over the lateral femoral neck. The fibers of the rectus femoris tendon were identified and these were freed from the anterior capsule. A second cobra retractor was placed around the medial femoral neck. The TFL was further retracted laterally to show the deep fascia. Careful dissection through this layer identified three main crossing vessels of the lateral femoral circumflex. These were cauterized in multiple locations and then cut without any noticeable bleeding. The TFL was further released bluntly from the deep fascia to expose anterior hip capsule and fat The Raymundo orthopaedic retractor was then placed beneath the TFL and against sartorius and medial soft tissues to protect and retract the soft tissues. A T-capsulotomy was then performed starting at the superior lateral acetabulum and moving distally to the intertrochanteric ridge. These capsular flaps were tagged with a No. 1 Ethibond and elevated from within. The capsular flaps were released to the shoulder of the lateral neck and to the lesser trochanter to give excellent visualization of the proximal femur. A neck osteotomy was performed using an oscillating saw based on preoperative templates. This cut started in the shoulder and of the lateral neck and exited medially. The saw was at all times directed medially to avoid injury to the greater trochanter. Gross traction was applied to the leg and the osteotomy opened. The femoral head was removed with a corkscrew, making sure to protect the TFL on its exit. Traction was released after head removal. This was measured on the back table to determine the starting reamer size. Portions of the rectus obscuring visualization were minimally elevated off the superior acetabulum. An anterior retractor was placed over the anterior wall between capsule and labrum and attached to the Gripper retraction system. The femur was rotated to 90 degrees and medial capsule was fully released until the lesser trochanter was palpable and visible; the femur was returned to 30 degrees. A posterior retractor was placed similarly between capsule and labrum. This provided excellent visualization. The contents of the cotyloid fossa were removed with electrocautery and the labrum was removed with a knife. There was a notable floor osteophyte. There was significant chondromalacia of the superior acetabulum. Acetabular reaming began with a 56mm reamer. This first reaming was directed anterior to posterior and medial to get down to the true floor. This was inspected and reamed until the true floor was reached. The anterior retractor was then released and entry and exit was provided by traction on the capsular flaps. I then reamed sequentially up to a 62mm reamer where good fit was obtained. The larger reamers were oriented based on anatomical reference of the anterior and lateral white to ensure proper abduction and anteversion. Positioning and size was confirmed with the fluoroscopy. A 62mm Depuy [place] acetabular component was selected. The acetabulum was reamed around the periphery with the selected acetabular size to prevent a rim fit. The deep tissues were irrigated. The acetabular component was then impacted in a position of about 40-45 degrees of abduction and 15-20 degrees of anteversion, using the patient?s anatomy as the ultimate landmark. Fluoroscopy was used to confirm this. There was excellent rebar fabricator of the acetabular component and the inserting handle was removed. The acetabular liner, Depuy [id number] polyethylene liner, was inserted and lined up with the tines of the acetabular component. There was no soft tissue interposition. The liner was then impacted into position and confirmed to be well-seated. A portion of the dillon-articular cocktail was then injected around the acetabulum into the capsule and periosteum. This cocktail consisted of 123mg of Ropivacaine, 0.25mg of Epinephrine, 0.04mg of Clonidine, and 15mg of Ketorolac, diluted to 50cc. The leg was rotated to 120 degrees. Any remaining medial capsule was released until the lesser trochanter was easily palpable. A retractor was placed medially. The lateral capsule was further released into the shoulder to allow access to the greater trochanter. A Damon retractor was placed over the greater trochanter which allowed the trochanter to flip in front of the capsule for excellent exposure. The leg was brought down into maximal extension and 20 degrees of adduction while ensuring there was no impingement on the acetabulum. Any remnant capsule within the trochanter was released. Piriformis and obturator externis were identified and protected. There was excellent access to the proximal femur. The lateral neck remnant was removed with a rongeur. A blunt canal probe was used to identify the canal and trajectory for later broaching. A box osteotome initiated the broach course. A small curved rasp and a curved curette were used to work laterally. Broaching then began with a starter Actis broach. This was inserted manually around the trochanter and into the canal before mallet blows. The broach was seated to a few millimeters below the cut level based on the neck cut and the preoperative template. Sequential broaching was continued with the [employer] pneumatic broaching device until a tight fit was obtained with good rotational control of the femur. A trial standard neck was inserted along with a +8.5 trial head. The leg was brought out of extension and adduction and then reduced with traction and internal rotation. The leg was stable anteriorly in a position of 30 degrees of extension and 90 degrees of external rotation. Fluoroscopy was used to ensure there was no fracture and the stem was seated well. Leg lengths were checked with an AP pelvis and pelvic reference points. [employer] navigation system was used to confirm appropriate positioning and leg length and offset. Once content with the desired offset and leg lengths, the leg was brought back into extension, external rotation and adduction. The periosteum and surrounding tissue was injected with remaining portion of the dillon-articular cocktail. The proximal femur was irrigated as well as the deep tissues. The [place] standard collared stem, size 6, was then manually inserted into the proximal femur making sure to control rotation. It was then malleted into position with light blows, giving breaks to allow bone expansion and decrease risk of fracture. The selected Depuy Altrx Ceramic Head, size 36+8.5mm, was then placed onto the clean and dry trunnion and secured with impaction onto the tapered fit. The leg was brought back out of extension and adduction and reduced with traction and internal rotation. Stability was confirmed with no shuck at 90 degrees of external rotation and 30 degrees of extension. No impingement through range of motion arc. Final x-ray images were obtained with fluoroscopy to confirm adequate positioning and no intraoperative fracture. The deep tissues were thoroughly irrigated with Surgiphor, betadine solution. This was allowed to sit in the wound for 3 minutes before being thoroughly irrigated out with normal saline. The capsule was then reapproximated with the previously placed Ethibond sutures. The TFL fascia was finally closed with a No. 2 Stratafix, barbed suture. Deep tissues were then reapproximated with 0 Vicryl and a running 2-0 Vicryl. The skin was closed with a running 4-0 Monocryl in a subcuticular fashion. This was reinforced with skin glue. A Mepilex silver dressing was applied. At the end of the case, all counts were correct. Soy was transferred to the hospital bed without difficulty and suffering no apparent complication. He has a good prognosis. Physical therapy will start today and without restrictions, weight-bearing as tolerated. Aspirin 81mg BID will be used for DVT prophylaxis.
--- NOTE | 2023-04-16 09:05 | W.BRIEF ---
Date of service: 04/16/23 Time of Service: 07:55 Brief Operative Note Procedure/Pre & Post Op Diagnoses/Learning Program Manager: Operation Date: 04/16/23 07:50 Actual Procedures p Hip Total Hip Anterior, ACTIS(Left) - Gume Hamilton MD Pre-Op Diagnosis: left hip osteoarthritis Post-Op Diagnosis: left hip osteoarthritis Case Staff Physician Learning Program Manager: Veerna Casiano Estimated Blood Loss Output, Estimated Blood Loss 150 Amount Specimen/Culture Specimen(s): None Culture(s): None Complications Complications: None
[2023-04-16] MEDS: fentaNYL 100 MCG/2 ML VIAL IVP (09:46)
--- NOTE | 2023-04-16 10:39 | W.ANESPOSTOP ---
Postoperative Evaluation Date, Time and Location Date Performed: 04/16/23 Time Performed: 10:39 Patient Location: Day Surgery Unit Vital Signs Most Recent Imported Vital Signs: Most Recent Vital Signs Temp Pulse Resp BP Pulse Ox 36.4 C L 61 16 155/67 H 94 04/16/23 10:32 04/16/23 10:32 04/16/23 10:32 04/16/23 10:32 04/16/23 10:32 Pain Score Most Recent Pain Score: Most Recent Pain Score Pain Level 0 04/16/23 10:32 Assessment Mental Status: Awake (Alert & Oriented to Patient Baseline) Airway and Respiratory Function: Patent airway with normal (patient baseline) respiratory exam Cardiovascular Function: Hemodynamically Stable Hydration Status: Adequately Hydrated Nausea & Vomiting: No Nausea or Vomiting Pain: Pt. Denies Any Pain Peripheral Nerve Block: Other (pt moves RLE well but reports he cannot lift his LLE off the bed. pt is able to move toes of LLE and has sensation in BLE. pt reports he can move the knee of his LLE but cannot lift the whole leg off the bed )
--- NOTE | 2023-04-16 11:56 | NUR.NOTE ---
Dr. Hamilton in to evaluate. Full sensation in both legs noted. Quad muscle activation verified with knee bending and leg hyperextension. Potential etiologies discussed. Cleared for physical therapy. Nursing Note:
--- NOTE | 2023-04-16 13:47 | IN_ITS ---
PT Notes Visit Reasons: Left hip DJD Physical Therapy Day Surgery Initial Evaluation Date: 04/16/2023 Referring Doctor: COLEMAN Summers PT Orders: PT CONSULT: S/P Ortho Surgery Precautions: WBAT on the L LE with AD. Patient Profile/Admitting Diagnosis: Soy is an 83-year=old male patient with degenerative joint disease of the L hip and is S/P L anterior total hip arthorplasty on postoperative day 0. PMHX: Medical History Depressed mood Vitiligo Ectropion Arthritis Color blindness History of benign neoplasm of prostate Glaucoma History of small bowel obstruction Surgical History History of left inguinal hernia repair (~08/30/20) History of total right knee replacement (~12/2019) Hx of right knee surgery History of colonoscopy History of cholecystectomy History of carpal tunnel release H/O arthroscopy of left knee History of colostomy History of colostomy reversal He also had his gallbladder removed during this surgery Social History/Home Situation: Lives with in a private home with a rmap to enter. Independent with all aspects of ADls prior to surgery although has had increasing difficulty with mobility ADL performance due to arthritic progression. Uses no device prior to surgery. Equipment Owned/DME: Bilateral axillary crutches Subjective: Reports weakness in the L anterior thigh but is willing to try out walking. L h ip and anterior thigh achy, 2/10 on the pain scale. Denied lightheadedness, chest pain, and headache throughout session. Objective: General Observation: Resting in bed. present in room throughout session. Mepilex Ag over surgical incision. TEDS to B legs. Mental Status: A nd O x 4 Pain: As above ROM: Right Lower Extremity: Hip flexion WFL. Hip abduction WFL. Knee flexion WFL. Ankle dorsiflexion WFL. Ankle plantarflexion WFL. Left Lower Extremity: Hip flexion WFL. Hip abduction WFL. Knee flexion WFL. Ankle dorsiflexion WFL. Ankle plantarflexion WFL. Strength: Right Lower Extremity: Hip flexors 5/5. Hip abductors 5/5. Knee flexors 5/5. Knee extensors 5/5. Ankle dorsiflexors 5/5. Ankle plantarflexors 5/5. Left Lower Extremity:Hip flexors 4-/5. Hip abductors 4-/5. Knee flexors 5/5. Knee extensors 4-/5. Ankle dorsiflexors 5/5. Ankle plantarflexors 5/5. Sensation: Intact as to pain and light pressure in B LE Bed Mobility/Transfers: Minimal cueing provided for use of B hands as needed for support, movement sequence, AD management, and and posture to reduce fall risk and minimize pain report Supine to sit stand by assist Sit to stand stand by assist with TORI Stand to sit stand by assist with TORI Bed to chair stand by assist with TORI Gait: 150 feet with bilateral axillary crutches with three-point gait pattern requiring only stand by assist and minimal verbal cueing for correct and safe gait pattern, posture, and safe directional change to reduce fall risk and pain report. Stairs: Guided patient with safe and correct negotiation of 6 x 4-inch steps and 4 x 6- inch steps while using a single crutch and with one hand holding onto a rail with step-to gait pattern with minimal verbal cueing provided for safety, stand by assist provided. Balance: Static Sitting: Normal Dynamic Sitting: Normal Static Standing: Fair Dynamic Standing: Fair Special Tests: Mobility Limitations Standardized Measure [facility] AM-PAC 6 clicks Basic Mobility Inpatient Short Form: Raw Score: 23 CMS Score: 11% deficit Informed Consent/Education: Patient instructed in purpose of PT consult. Packet containing ANDREA exercise protocol has been given to patient. Education and training on initial set of exercises that can be done at home have been completed with patient. Trained patient with correct performance of exercises below to maximize motor control, joint flexibility, soft tissue extensibility of the L hip musculature to facilitate return to independent functional mobility performance. Access Code: [email or web address] URL: [email or web address] Date: 04/16/2023 Prepared by: Naima Prasad Exercises - Gluteal Sets - 1 x daily - 7 x weekly - 1 sets - 10 reps - 5 hold - Supine Heel Slide - 1 x daily - 7 x weekly - 1 sets - 10 reps - 5 hold - Supine Ankle Pumps - 1 x daily - 7 x weekly - 1 sets - 10 reps - 5 hold - Seated March - 1 x daily - 7 x weekly - 1 sets - 10 reps - 5 hold - Seated Long Arc Quad - 1 x daily - 7 x weekly - 1 sets - 10 reps - 5 hold ASSESSMENT: Patient requires the use of bilateral axillary crutches for all mobility ADL performance to maximize independence and reduce fall risk. Patient presents with clinical signs and symptoms consistent with current/admitting diagnoses that have resulted to mobility limitations, gait instability, generalized weakness, and impairment of motor control as demonstrated by the following impairment level findings: 1. Decreased strength to left hip major muscle groups 2. Impaired standing balance 3. Limitation of joint range of motion in left hip Impairments are contributing to the following functional limitations: 1. Inability to safely ambulate without assistive device 2. Increase completion time for mobility ADL performance 3. Increased fall risk Patient is assessed as a 64106 moderate complexity based on the following: History: 83-year-old male with impairment level findings, functional limitations, and past medical history as indicated above Examination: Demonstrable impairment in strength, balance, and mobility level with underlying impairments and functional limitations as documented above Presentation: Evolving Decision Makin moderate complexity Goals: N/A. PT evaluation and 1-2 treatment sessions only for functional mobility training using recommended AD and for HEP instruction. Plan of Care/Treatment Plan: N/A. PT evaluation and 1-2 treatment session only for functional mobility training using recommended AD and for HEP instruction. DISCHARGE RECOMMENDATIONS: Home when medically cleared by orthopedic surgeon. Recommend outpatient PT services in order to optimize functional mobility outcomes and facilitate return to independent community ambulation without an assistive device. TREATMENT CODE/TIME: 78971 x 20 minutes for 1 unit, 76074 x 19 minutes for 1 unit beginning at 13:47 PM. Thank you for the opportunity to participate in the care of this patient. Please sign an return this page within 30 days if you agree with the above POC. Thank you! Physician Signature Date [facility] Thank you for the opportunity to participate in the care of this patient. Naima Prasad PT, DPT, CLT [facility], [place]
== END 2023-04-16 15:00 | disposition home or self-care (01) ==
PROVIDERS: PCP Nurse Practitioner Family; Visit Provider Student in an Organized Health Care Education/Training Program
PROC: (CPT 27130; principal; 2023-04-16 07:30)
DX: M16.12 Unilateral primary osteoarthritis, left hip (principal); J45.909 Unspecified asthma, uncomplicated; H40.9 Unspecified glaucoma
CPT/HCPCS: 20985; 27130; C1776; 97162; 97530; 73501; J0690; J1100; J2250; J2371; J2401; J2405; J2704; J3010

== ENCOUNTER 2023-04-29 14:08 | Outpatient (CLI) | payer MEDICARE, SELFPAY ==
--- NOTE | 2023-04-29 10:30 | DI.RAD_ITS ---
Exam(s) XR HIP LT COMPLETE AP PELVIS EXAM: XR HIP LT COMPLETE AP PELVIS CLINICAL HISTORY: 1ST POST OP S/P L ANDREA. TECHNIQUE: 2D digital imaging was performed. Two views. COMPARISON: CR XR PELVIS AP from 04/12/2023 XA XR HIP LT IN OR from 04/16/2023 FINDINGS: BONES: No acute fracture is present. No bony destructive lesion is seen. JOINTS: No dislocation present. There has been no change in the alignment of the left hip prosthesi s. Mild degenerative changes of the right hip. SOFT TISSUE: Vascular calcifications. IMPRESSION: Stable appearance of left hip prosthesis. DATA REPOSITORY: RADIATION DOSE DELIVERED:
== END 2023-04-29 14:09 | disposition home or self-care (01) ==
LOC: DIORS 14:13
PROVIDERS: PCP Nurse Practitioner Family; Visit Provider Student in an Organized Health Care Education/Training Program
DX: Z96.642 Presence of left artificial hip joint (principal); Z47.1 Aftercare following joint replacement surgery
CPT/HCPCS: 73502

== ENCOUNTER → 2023-05-30 09:30 | Outpatient (BNVA) | payer MEDICARE, SELFPAY | PROVIDERS: PCP Nurse Practitioner Family; Referring Provider Nurse Practitioner Family; Visit Provider Student in an Organized Health Care Education/Training Program | DX: Z47.1 Aftercare following joint replacement surgery (principal); Z96.642 Presence of left artificial hip joint ==

== ENCOUNTER 2023-12-13 15:43 | Outpatient (REF) | payer MEDICARE, SELFPAY ==
[2023-12-13 21:28] LABS: TSH (W/Ref FT4) 6.17 uIU/mL (0.36-3.74)
[2023-12-13 22:17] LABS: FREE T4 0.68 ng/dL (0.76-1.46)
== END 2023-12-13 15:44 | disposition home or self-care (01) ==
LOC: NCHCN 15:43
PROVIDERS: PCP Nurse Practitioner Family; Visit Provider Nurse Practitioner Family
DX: E03.9 Hypothyroidism, unspecified (principal)
CPT/HCPCS: 84439; 84443

== ENCOUNTER 2024-02-18 13:34 | Outpatient (REF) | payer MEDICARE, SELFPAY ==
[2024-02-18 14:51] LABS: TSH (W/Ref FT4) 6.49 uIU/mL (0.36-3.74)
[2024-02-18 15:10] LABS: FREE T4 0.69 ng/dL (0.76-1.46)
== END 2024-02-18 13:35 | disposition home or self-care (01) ==
LOC: NCHCN 13:34
PROVIDERS: PCP Nurse Practitioner Family; Visit Provider Nurse Practitioner Family
DX: E03.9 Hypothyroidism, unspecified (principal)
CPT/HCPCS: 84439; 84443

== ENCOUNTER 2024-04-20 15:54 | Outpatient (CLI) | payer MEDICARE, SELFPAY ==
--- NOTE | 2024-04-20 10:00 | DI.RAD_ITS ---
Exam(s) XR HIP LT AP LAT ONLY EXAM: XR HIP LT AP LAT ONLY CLINICAL HISTORY: ANNUAL F/U L ANDREA. TECHNIQUE: 2D digital imaging was performed. Two images were obtained. AP and lateral views were ob tained. COMPARISON: CR XR HIP LT COMPLETE AP PELVIS from 04/29/2023 FINDINGS: BONES: There are stable post operative changes of a left total hip arthroplasty present. No fracture or dislocation. JOINTS: The orthopedic hardware is in good position. No evidence of hardware loosening. SOFT TISSUE: Atherosclerotic calcification is present. IMPRESSION: Stable left total hip arthroplasty. DATA REPOSITORY: RADIATION DOSE DELIVERED:
== END 2024-04-20 15:55 | disposition home or self-care (01) ==
LOC: DIORS 15:54
PROVIDERS: PCP Nurse Practitioner Family; Visit Provider Student in an Organized Health Care Education/Training Program
DX: Z47.1 Aftercare following joint replacement surgery (principal); Z96.642 Presence of left artificial hip joint
CPT/HCPCS: 99213; 73502

== ENCOUNTER → 2024-06-23 10:35 | Outpatient (BNVA) | payer MEDICARE, SELFPAY | PROVIDERS: PCP Nurse Practitioner Family; Referring Provider Nurse Practitioner Family; Visit Provider Podiatrist | DX: L60.3 Nail dystrophy (principal); B35.1 Tinea unguium; B07.0 Plantar wart; L60.2 Onychogryphosis; L60.8 Other nail disorders; L85.8 Other specified epidermal thickening | CPT/HCPCS: 17110; 99214 ==

== ENCOUNTER → 2024-08-04 10:43 | Outpatient (BNVA) | payer MEDICARE, BC, SELFPAY | PROVIDERS: PCP Nurse Practitioner Family; Referring Provider Nurse Practitioner Family; Visit Provider Podiatrist | DX: B07.0 Plantar wart (principal); B35.1 Tinea unguium; L60.3 Nail dystrophy | CPT/HCPCS: 17110 ==

== ENCOUNTER → 2024-09-15 11:13 | Outpatient (BNVA) | payer MEDICARE, BC, SELFPAY | PROVIDERS: PCP Nurse Practitioner Family; Referring Provider Nurse Practitioner Family; Visit Provider Podiatrist | DX: L60.0 Ingrowing nail (principal); B35.1 Tinea unguium; L60.3 Nail dystrophy; B07.0 Plantar wart | CPT/HCPCS: 99213; 11750 ==

== ENCOUNTER → 2024-10-05 11:21 | Outpatient (BNVA) | payer MEDICARE, BC, SELFPAY | PROVIDERS: PCP Nurse Practitioner Family; Referring Provider Nurse Practitioner Family; Visit Provider Podiatrist | DX: L60.0 Ingrowing nail (principal); B35.1 Tinea unguium; L60.3 Nail dystrophy; B07.0 Plantar wart | CPT/HCPCS: 99214 ==

== ENCOUNTER → 2024-10-27 08:50 | Outpatient (BNVA) | payer MEDICARE, BC, SELFPAY | PROVIDERS: PCP Nurse Practitioner Family; Referring Provider Nurse Practitioner Family; Visit Provider Podiatrist | DX: B35.1 Tinea unguium (principal); L60.3 Nail dystrophy; M79.675 Pain in left toe(s); M79.674 Pain in right toe(s); L60.2 Onychogryphosis; L60.8 Other nail disorders; R20.2 Paresthesia of skin; R60.0 Localized edema; L65.9 Nonscarring hair loss, unspecified; L85.8 Other specified epidermal thickening | CPT/HCPCS: 11719; 11720 ==

== ENCOUNTER → 2025-03-02 08:51 | Outpatient (BNVA) | payer MEDICARE, BC, SELFPAY | PROVIDERS: PCP Nurse Practitioner Family; Referring Provider Nurse Practitioner Family; Visit Provider Podiatrist | DX: L60.3 Nail dystrophy (principal); B35.1 Tinea unguium; M79.674 Pain in right toe(s); M79.675 Pain in left toe(s); R20.8 Other disturbances of skin sensation; G60.8 Other hereditary and idiopathic neuropathies; R60.0 Localized edema; L65.9 Nonscarring hair loss, unspecified; L84 Corns and callosities; L60.8 Other nail disorders; L60.2 Onychogryphosis | CPT/HCPCS: 11719; 11720 ==